=== PATIENT | female | born 1975 | race Caucasian/White ===

== ENCOUNTER 2024-01-11 22:32 | Outpatient (REF) | payer OTHER, SELFPAY ==
[2024-01-19 15:11] LABS: Age Gdln ACOG Testing Note (.); HPV Aptima Negative (Negative); IGP, Aptima HPV, rfx 16/18,45 Note (.)
== END 2024-01-11 22:33 | disposition home or self-care (01) ==
LOC: LAB 22:32
PROVIDERS: Visit Provider Obstetrics & Gynecology
DX: Z01.419 Encounter for gynecological examination (general) (routine) without abnormal findings (principal)
CPT/HCPCS: 88175

== ENCOUNTER 2024-03-15 15:44 | Outpatient (OUT) | payer OTHER, SELFPAY ==
--- NOTE | 2024-03-15 15:46 | MM_ITS ---
Patient Name: HALINA CHIN MR#: [id number] : 1975 Exam Date: 03/15/2024 Ordering Doctor: DR Jerry Montalvo . RADIOLOGY REPORT PROCEDURE: MM TOMOSYNTHESIS SCREENING BI COMPARISON: [facility]M DIAGNOSTIC 3D BENITO CAD, 05/03/2021. [facility]M BENITO SCRN W CAD DIG, 08/04/2018. [facility] MAMM BENITO SCRN W CAD DIG, 05/14/2017. INDICATIONS: screening for malignant neoplasm of breast Calculator Name NCI Breast Cancer Risk Assessment Tool 5 Year Breast Cancer Risk 0.60% Lifetime Breast Cancer Risk 5.80% Personal Breast Cancer No Personal Ovarian Cancer No Treatments None Family Cancers None LOCATION: [facility] BREAST COMPOSITION: The breasts are heterogeneously dense,which may obscure small masses. FINDINGS: DIAGNOSTIC CATEGORY 1--NEGATIVE. RIGHT BREAST: No significant suspicious finding. No significant change has occurred. LEFT BREAST: No significant suspicious finding. No significant change has occurred. RECOMMENDATIONS: ROUTINE MAMMOGRAM AND CLINICAL EVALUATION IN 12 MONTHS. PLEASE NOTE: A NORMAL MAMMOGRAM DOES NOT EXCLUDE THE POSSIBILITY OF BREAST CANCER. A CLINICALLY SUSPICIOUS PALPABLE LUMP SHOULD BE BIOPSIED. Dictated by: Minesh Myers M.D. on 03/15/2024 at 16:52 Approved by: Minesh Myers M.D. on 03/15/2024 at 16:54
== END 2024-03-15 15:45 | disposition home or self-care (01) ==
LOC: MAMMO 15:44
PROVIDERS: Visit Provider Obstetrics & Gynecology
DX: Z12.31 Encounter for screening mammogram for malignant neoplasm of breast (principal)
CPT/HCPCS: 77063; 77067

== ENCOUNTER 2024-05-15 15:15 | Emergency (ER) | payer OTHER, SELFPAY ==
[2024-05-15 15:23] VITALS: BP 118/72; PULSE 61; TEMP 36.6; O2SAT 100; BMI 26.0
--- OUTSIDE RECORDS SUMMARY | 2024-05-15 15:25 | XMS_ITS | CCD ---
Author Organization [facility] ion Partnership [facility] Care Team Providers Care Rug Frame Mounter Name Role Phone JASON, JCARLOS Unavailable Unavailable JCARLOS GOMEZ Unavailable Unavailable DIEGO REYNOLDS Unavailable Unavailable Aron Roque Unavailable Unavailable JASON, JCARLOS Unavailable Unavailable JASON, JCARLOS Unavailable Unavailable FURLONG, DIEGO Unavailable Unavailable LIZ, DIEGO Unavailable Unavailable JERO FAJARDO Attending Unavailable MELO ., JERO Consulting Unavailable JERO FAJARDO Admitting Unavailable Diego Reynolds MD Primary Care Provider YU MONTALVO Attending Unavailable Diego Reynolds DO Primary Care Provider DIEGO REYNOLDS Attending Unavailable DIEGO REYNOLDS Referring Unavailable DIEGO REYNOLDS Primary Care Unavailable DIEGO REYNOLDS Referring Unavailable DIEGO REYNOLDS Primary Care Unavailable Allergies Allergy Classification Reported Allergen(s) Allergy Type Date of Onset Reaction(s) Facility (1 source) No Known Medication Allergies; Translations: [No Known Medication Allergies] Propensity to adverse reactions to drug (disorder) [facility] Repository Medications Current Medications Medication Drug Class(es) Dates Sig (Normalized) Sig (Original) biotin 5 mg oral tablet (1 source) Start: 05-28-2022 take 1 tablet by mouth in the morning biotin 5 mg tablet Take 1 tablet by mouth in the morning. 100 tablet 05/28/2022 Active calcium carbonate 1250 mg / cholecalciferol 200 unt oral tablet (1 source) Vitamin D Start: 05-28-2022 take 1 tablet by mouth once in the morning calcium carbonate-vitamin D3 (OSCAL 500 + D) 500 mg(1,250mg) -200 units per tablet Take 1 tablet by mouth in the morning and 1 tablet in the evening. Take with meals. 100 tablet 05/28/2022 Active famotidine 20 mg oral tablet (4 sources) Histamine-2 Receptor Antagonist Start: 02-20-2023 End: 01-11-2024 take 1 tablet by mouth in the morning, then take 1 tablet by mouth at bedtime famotidine (PEPCID) 20 mg tablet Take 1 tablet (20 mg total) by mouth in the morning and 1 tablet (20 mg total) before bedtime. 20 tablet 02/20/2023 Active levonorgestrel 0.056492 mg/hr intrauterine system (5 sources) Progestin, Progestin-containi ng Intrauterine Device levonorgestreL (MIRENA) 21 mcg/24hr (up to 8 yrs) 52 mg IUD as directed Intrauterine Active Levonorgestrel ( Mirena, 52 MG,) 20 MCG/DAY intrauterine device as directed Intrauterine Active multivitamin capsule (1 source) Start: 05-28-2022 take 1 capsule by mouth in the morning multivitamin capsule Take 1 capsule by mouth in the morning. 100 capsule 05/28/2022 Active Problems Active Problems Problem Classification Problem Date Documented Date Episodic/Chronic Immunizations and screening for infectious disease (1 source) Encounter for screening for human papillomavirus (HPV); Translations: [ENC SCREENING HUMAN PAPILLOMAVIRUS] Onset: 07-03-2022 Episodic Menopausal disorders (3 sources) Perimenopausal state; Translations: [Menopausal and female climacteric states] Onset: 05-10-2024 05-10-2024 Chronic Mood disorders (2 sources) Recurrent major depressive episodes, mild ; Translations: [Major depressive disorder, recurrent, mild] Onset: 05-28-2022 05-10-2024 Chronic Other and unspecified benign neoplasm (1 source) Benign fibromatous neoplasm of skin; Translations: [Other benign neoplasm of skin, unspecified] 05-10-2024 Episodic Other nutritional; endocrine; and metabolic disorders (1 source) Overweight; Translations: [Overweight] 05-10-2024 Episodic Other screening for suspected conditions (not mental disorders or infectious disease) (8 sources) Encounter for screening for malignant neoplasm of cervix; Translations: [Patient encounter status] Onset: 06-30-2022 Episodic Unclassified (1 source) Annual Exam Onset: 05-10-2024 Past or Other Problems Problem Classification Problem Date Documented Da te Episodic/Chronic Mood disorders (1 source) Mood disorders Onset: 05-10-2024 05-10-2024 Other non-traumatic joint disorders (1 source) Pain in right knee; Translations: [Pain in joint, lower leg] Onset: 05-28-2022 05-28-2022 Episodic Results Test Name Value Interpretation Reference Range Facility E2 [Mass/Vol]on 05-10-2024 ESTRADIOL 125.4 pg/mL Normal [facility] Comment on above: Result Comment: NON- FEMALES Mid follicular: 25-115 pg/mL Ovulatory Peak: 32.1-517 pg/mL Mid Luteal: 36.5-246 pg/mL Post-Menopausal Females: <15.0-25.1 pg/mL (Not on hormone therapy) The Access Sensitive Estradiol assay results are not intended to be used to measure the effectiveness of exogeneous Estradiol supplementation, for example, when the patient is on hormone replacement therapy. The presence of estradiol drug analogues and their metabolites could have an impact on estradiol recovery when using this assay. Performed By: #### 1 0501-5, 2243-4, 13663-3 #### [facility] ([id number]) [address] [place] [address], [facility] [address] [place] [address] Follitropin Qnon 05-10-2024 FOLLICLE STIM HORMONE 8.7 mIU/mL Normal [facility] Comment on above: Result Comment: NORMAL FEMALE Luteal 1.8-5.1 mIU/mL Follicular 3.8-8.8 mIU/mL Mid Cycle 4.5-22.5 mIU/mL Post [place] 16.7-113.6 mIU/mL Performed By: #### 1 0501-5, 2243-4, 82428-8 #### [facility] ([id number]) [address], [address] [place] [address] Lutropin Qnon 05-10-2024 LUTEINIZING HORMONE 3.8 mIU/mL Normal [facility] Comment on above: Result Comment: NORMAL FEMALE Follicular 2.1-10.9 mIU/mL Mid Cycle 19.2-103 mIU/mL Luteal 1.2-12.9 mIU/mL Post [place]el[place] 10.9-58.6 mIU/mL Performed By: #### 1 0501-5, 2243-4, 90605-3 #### [facility] ([id number]) [address], [address] [place] [address] IGP,APTIMA HPV,AGE GDLNon AGE GDLN ACOG TESTING Note . [facility] Comment on above: TESTS RESULT FLAG UNITS REF RANGE LAB Clinician Provided Cytology Information Source.............Cervix;Endocervix No. of containers..01 ThinPrep Vial Age Algo ACOG Ymui... -65 01 FLAG LEGEND: L-Low Normal,H-High Normal,LL-Alert Low,HH-Alert High <-Panic Low,>-Panic High,A-Abnormal,AA-Critical Abnormal Performed at: 01 =[address] [address] Daniela Cifuentes MD, HPV APTIMA Negative Negative [facility] Comment on above: This nucleic acid amplification test det ects fourteen high- risk HPV types (16,18,31,33,35,39,45,51,52,56,58,59,66,68) without differentiation. Performed at: =[address] [id number] Credit Administration Officer: Daniela Cifuentes MD, Phone: [phone] Performed at: [address] [id number] Credit Administration Officer: Daniela Cifuentes MD, Phone: [phone] IGP, APTIMA HPV, RFX 16/18,45 Note . [facility] Comment on above: TESTS RESULT FLAG UNITS REF RANGE LAB DIAGNOSIS: 02 NEGATIVE FOR INTRAEPITHELIAL LESION OR MALIGNANCY. Specimen adequacy: 02 Satisfactory for evaluation. No endocervical component is identified. Performed by: Hay Phipps, Director Educational Radio ([facility]) . 02 Note: Note 02 The Pap smear is a screening test designed to aid in the detection of premalignant and malignant conditions of the uterine cervix. It is not a diagnostic procedure and should not be used as the sole means of detecting cervical cancer. Both false-positive and false-negative reports do occur. Test Methodology: Note 02 This liquid based ThinPrep(R) pap test was screened with the use of an image guided system. HPV Genotype Reflex Note 02 Criteria not met, HPV Genotype not performed. FLAG LEGEND: L-Low Normal,H-High Normal,LL-Alert Low,HH-Alert High <-Panic Low,>-Panic High,A-Abnormal,AA-Critical Abnormal Performed at: 02 WB [facility] [address] [address] Daniela Cifuentes MD, BRUSH-SPATULA CERVIX ENDOCERVIX [facility] PAP ACOG PANEL 2: 30 to 65on 07-08-2022 . . Normal [facility] Comment on above: Result Comment: Performed at: WB Performed By: #### 4 [id number] #### [facility] [address] [place] [address] Dr. Anabela Handley Age Gdln ACOG Testing 30-65 Normal [facility] Comment on above: Performed By: #### [id number] #### [facility] [address] [address] [address] Anabela Handley DIAGNOSIS: Comment Normal [facility] Comment on above: Result Comment: NEGATIVE FOR INTRAEPITHE LIAL LESION OR MALIGNANCY. PREDOMINANCE OF COCCOBACILLI CONSISTENT WITH SHIFT IN VAGINAL ZAN IS PRESENT. Performed at: WB Performed By: #### 4 [id number] #### [facility] [address] [address] [address] Anabela Handley HPV Aptima Positive Abnormal Negative [facility] Comment on above: Result Comment: This nucleic acid amplif ication test detects fourteen high-risk HPV types (16,18,31,33,35,39,45,51,52,56,58,59,66,68) without differentiation. Performed at: =G Performed By: #### 4 [id number] #### [facility] [address] [address] [address] Anabela Handley HPV Genotype 16 Negative Normal Negative [facility] Comment on above: Performed By: #### [id number] #### [facility] [address] [place] [address] Dr. Anabela Handley HPV Genotype 18,45 Negative Normal Negative [facility] Comment on above: Performed By: #### [id number] #### [facility] [address] [place] [address] Dr. Anabela Handley HPV Genotype Reflex Comment Normal [facility] Comment on above: Result Comment: Criteria met, see HPV Ge notype results. Performed at: WB Performed By: #### 4 [id number] #### [facility] [address] [place] [address] Dr. Anabela Handley Methodology: Comment Normal [facility] Comment on above: Result Comment: This liquid based ThinPr ep(R) pap test was screened with the use of an image guided system. Performed at: WB Performed By: #### 4 [id number] #### [facility] [address] [place] [address] Dr. Anabela Handley Note: Comment Normal [facility] Comment on above: Result Comment: The Pap smear is a scree milton test designed to aid in the detection of premalignant and malignant conditions of the uterine cervix. It is not a diagnostic procedure and should not be used as the sole means of detecting cervical cancer. Both false-positive and false-negative reports do occur. . Performed at: WB Performed By: #### 4 [id number] #### [facility] [address] [place] [address] Dr. Anabela Handley Performed by: Comment Normal [facility] Comment on above: Result Comment: Tye Dominguez Cytoyemi logist (ASCP) Performed at: WB Performed By: #### 4 [id number] #### [facility] [address] [place] [address] Dr. Anabela Handley Specimen adequacy: Comment Normal [facility] Comment on above: Result Comment: Satisfactory for evaluat ion. Endocervical and/or squamous metaplastic cells (endocervical component) are present. Performed at: WB Performed By: #### 4 [id number] #### [facility] [address] [place], [place] [address] Dr. Anabela Handley [facility] METABOLIC [facility] 04-09-2021 Albumin [Mass/Vol] 4.7 g/dL Normal 3.6-5.1 [facility] Comment on above: Performed By: #### 7600, 17430 #### [facility] of [address], [address] [place] [address] Tool Rental Technician: Mina Tillman MD Albumin/Globulin [Mass ratio] 1.9 {ratio} Normal 1.0-2.5 [facility] Comment on above: Performed By: #### 7600, 13275 #### [facility] of [place] [address] Tool Rental Technician: Mina Tillman MD ALP [Catalytic activity/Vol] 43 U/L Normal 31-125 [facility] Comment on above: Performed By: #### 7600, 02225 #### [facility] of [place] [address] Tool Rental Technician: Mina Tillman MD ALT [Catalytic activity/Vol] 14 U/L Normal 6-29 [facility] Comment on above: Performed By: #### 7600, 53858 #### [facility] of [place] [address] Tool Rental Technician: Mina Tillman MD AST [Catalytic activity/Vol] 16 U/L Normal 10-35 [facility] Comment on above: Performed By: #### 7600, 25116 #### [facility] of [place] [address] Tool Rental Technician: Mina Tillman MD Bilirubin [Mass/Vol] 0.7 mg/dL Normal 0.2-1.2 [facility] Comment on above: Performed By: #### 7600, 78403 #### [facility] of [place] [address] Tool Rental Technician: Mina Tillman MD BUN/CREATININE RATIO NOT APPLICABLE Normal 6-22 [facility] Comment on above: Performed By: #### 7600, 64100 #### [facility] of [place] [address] Tool Rental Technician: Mina Tillman MD Calcium [Mass/Vol] 9.7 mg/dL Normal 8.6-10.2 [facility] Comment on above: Performed By: #### 7600, 88344 #### [facility] of [place] [address] Tool Rental Technician: Mina Tillman MD Chloride [Moles/Vol] 104 mmol/L Normal 98-110 [facility] Comment on above: Performed By: #### 7600, 73537 #### [facility] of [place] [address] Tool Rental Technician: Mina Tillman MD CO2 [Moles/Vol] 26 mmol/L Normal 20-32 [facility] Comment on above: Performed By: #### 7600, 11181 #### [facility] of [place] [address] Tool Rental Technician: Mina Tillman MD Creatinine [Mass/Vol] 0.72 mg/dL Normal 0.50-1.10 [facility] Comment on above: Performed By: #### 7600, 75520 #### [facility] of [place] [address] Tool Rental Technician: Mina Tillman MD eGFR NON-AFR. BAHAMIAN 101 mL/min/1.73m2 Normal > OR = 60 [facility] Comment on above: Performed By: #### 7600, 97498 #### [facility] of [place] [address] Tool Rental Technician: Mina Tillman MD GFR/1.73 sq M.predicted among blacks MDRD (S/P/Bld) [Vol rate/Area] 117 mL/min/{1.73_m2} Normal > OR = 60 [facility] Comment on above: Performed By: #### 7600, 72524 #### [facility] of [place] [address] Tool Rental Technician: Mina Tillman MD Globulin (S) [Mass/Vol] 2.5 g/dL Normal 1.9-3.7 [facility] Comment on above: Performed By: #### 7600, 25931 #### [facility] [place] [address] Tool Rental Technician: Mina Tillman MD Glucose [Mass/Vol] 88 mg/dL Normal 65-99 [facility] Comment on above: Result Comment: Fasting reference interval Performed By: #### 7 600, 11188 #### [facility] [place] [address] Tool Rental Technician: Mina Tillman MD Potassium [Moles/Vol] 3.9 mmol/L Normal 3.5-5.3 [facility] Comment on above: Performed By: #### 7600, 66027 #### [facility] [place] [address] Tool Rental Technician: Mina Tillman MD Protein [Mass/Vol] 7.2 g/dL Normal 6.1-8.1 [facility] Comment on above: Performed By: #### 7600, 59314 #### [facility] [place] [address] Tool Rental Technician: Mina Tillman MD Sodium [Moles/Vol] 140 mmol/L Normal 135-146 [facility] Comment on above: Performed By: #### 7600, 73347 #### [facility] [place] [address] Tool Rental Technician: Mina Tillman MD Urea nitrogen [Mass/Vol] 12 mg/dL Normal 7-25 [facility] Comment on above: Performed By: #### 7600, 85488 #### [facility] [place] [address] Tool Rental Technician: Mina Tillman MD LIPID PANEL, [facility] Cholesterol [Mass/Vol] 141 mg/dL Normal <200 [facility] Comment on above: Order Comment: FASTING:YES FASTING: YES Performed By: #### 7 600, 56856 #### [facility] [address], [address] [place] [address] Tool Rental Technician: Mina Tillman MD Cholesterol in HDL [Mass/Vol] 52 mg/dL Normal > OR = 50 [facility] Comment on above: Order Comment: FASTING:YES FASTING: YES Performed By: #### 7 600, 32622 #### [facility] [address], [address] [place] [address] Tool Rental Technician: Mina Tillman MD Cholesterol in LDL [Mass/Vol] 75 mg/dL Normal [facility] Comment on above: Order Comment: FASTING:YES FASTING: YES Result Comment: Refe rence range: <100 Desirable range <100 mg/dL for primary prevention; <70 mg/dL for patients with CHD or diabetic patients with > or = 2 CHD risk factors. LDL-C is now calculated using the Kristen calculation, which is a validated novel method providing better accuracy than the Friedewald equation in the estimation of LDL-C. Jorge BENJAMIN et al. JOSÉ LUIS. 2013;310(19): 2393-9632 (http://education.[employer].StackAdapt/faq/LLK655) Performed By: #### 7 600, 18393 #### [facility] [address], [address] [place] [address] Tool Rental Technician: Mina Tillman MD Cholesterol.tota l/Cholesterol in HDL [Mass ratio] 2.7 {ratio} Normal <5.0 [facility] Comment on above: Order Comment: FASTING:YES FASTING: YES Performed By: #### 7 600, 96601 #### [facility] [address], [address] [place] [address] Tool Rental Technician: Mina Tillman MD NON HDL CHOLESTEROL 89 mg/dL (calc) Normal <130 [facility] Comment on above: Order Comment: FASTING:YES FASTING: YES Result Comment: For patients with diabetes plus 1 major ASCVD risk factor, treating to a non-HDL-C goal of <100 mg/dL (LDL-C of <70 mg/dL) is considered a therapeutic option. Performed By: #### 7 600, 11433 #### [facility] of [address], [address] [address] Tool Rental Technician: Mina Tillman MD Triglyceride [Mass/Vol] 56 mg/dL Normal <150 [facility] Comment on above: Order Comment: FASTING:YES FASTING: YES Performed By: #### 7 600, 37658 #### [facility] [address], [address] [place] [address] Tool Rental Technician: Mina Tillman MD CBC (INCLUDES DIFF/PLT)on WHITE BLOOD CELL COUNT Normal [facility] Comment on above: Result Comment: TEST NOT PERFORMED Specimen received clotted. Performed By: #### 6 399 #### [facility] [address], [address] [place] [address] Tool Rental Technician: Mina Tillman MD Intraoperative Noteon 2017 Intraoperative Note [id number]#[facility] 12-25-2016 Coding Summary CODING DATE: 017 [facility] STATUS: Home PAYOR: Commercial Insurance APC DESCRIPTION 5414 Level 4 Gynecologic Procedures ADMIT DX: REASON FOR VISIT DX: R87.619 Unspecified abnormal cytological findings in specimens from cervix uteri FINAL DX: PRINCIPAL: N87.1 Moderate cervical dysplasia SECONDARY: N72 Inflammatory disease of cervix uteri PYMT PROC APC STAT DESCRIPTION DOCTOR NAME DATE 75510 5414 J1 Conization of cervix, 12/09/2016 with or without fulguration, with or without dilation and curettage, with or without repair; cold knife or laser NOTE: The code number assigned matches the documented diagnosis and / or procedure in the patient's chart. However, the narrative phrase printed from the coding software may appear abbreviated, or result in slightly different terminology. Coded By: Patrica Covington Date Saved: 12/25/2016 01:[address] [facility] - Other Lab Resultson Lab - Other Lab Results [id number]#1.00OT[facility] History and Physicalon 12-22 History and Physical [id number]#[address] [place] [address] Operative Report - Surgeon/P justino 12-22-2016 Operative Report - Surgeon/Physicia n [id number]#1.[facility] Pathology Sendout Teston Pathology Send Out. See Report [facility] Comment on above: Order Comment: cervical cone biopsy with suture at 12 o' clock position Performed By: #### 2 [id number] ####[facility] (DEFAULT)[address] [place] [address] Provider Orderson 12-22-2016 Provider Orders [id number]#[address] [place] [address] Consent Formson 12-10-2016 Consent Forms [id number]#[address] [place] [address] Medication Managementon Medication Management [id number]#[address] [place] [address] Anesthesia Noteon 12-09-2016 Anesthesia Note Patient: JOSIAS JACKSON : 41 years Sex: FEMALE : [birth year]Associated Diagnoses: NoneAuthor: Aron Roque MDPostoperative InformationPost Operative Note: Post Anesthesia Care Unit.Anesthetic utilized: Monitored anesthesia care.Health StatusAllergies:Allergic Reactions (All)No Known Medication AllergiesPhysical ExaminationVS/MeasurementsVit al Signs (last 24 hrs) Last ChartedHeart Rate Peripheral L48 bpm (DEC 09 12:10)Resp Rate L 11 br/min (DEC 09 12:10)SBP 92 mmHg (DEC 09 12:10)DBP L 57 mmHg (DEC 09 12:10)SpO2 100 % (DEC 09:)Review / ManagementCondition: Stable.AssessmentAnesthetic outcomeNo anesthetic complications noted.Adequate pain relief.No Complaint of nausea and vomiting.PlanTransfer/ Discharge: Patient can be discharged from PACU when criteria met.Condition good.[Electronically Signed on: 12/09/2016 12:15 EDT] Aron Roque MD[Verified on: 12/09/2016 12:15 EDT] Aron Roque MD [facility] Anesthesia Note Patient: JOSIAS JACKSON : 41 years Sex: FEMALE : [birth year]Associated Diagnoses: NoneAuthor: Aron Roque MDPreoperative InformationAnesthesia history: Patient history negative Family history: No prior anesthesia problems.Review of SystemsConstitutional: Negative.Respiratory: No shortness of breath.Cardiovascular: No chest pain.Health StatusAllergies:Allergic Reactions (All)No Known Medication AllergiesCurrent medications:Home Medications (1) ActiveNexplanon 68 mg subcutaneous implantProblem list (past medical history):All ProblemsNo Chronic Problems / Cerner NKPHistoriesFamily History:No family history items have been selected or recorded.Procedure history:Varicose veins ([id number]). ([id number]).Social History Alcohol Assessment Beer, 1-2 times per week Tobacco Assessment Never (less than 100 in lifetime) Tobacco Use:..Social & Psychosocial CcrnqbRnlatpw54/19/2017 Type: Beer Frequency: 1-2 times per wonrOxkgtpd94/19/2017 Smoking tobacco use: Never (less than 100 in l.Physical ExaminationVS/MeasurementsVit al Signs (last 24 hrs) Last ChartedHeart Rate Peripheral 71 bpm (DEC 09 08:52)Resp Rate 18 br/min (DEC 09 08:52)SBP 131 mmHg (DEC 09 08:52)DBP 77 mmHg (DEC 09 08:52)SpO2 100 % (DEC 09 08:52)Pain assessment: Self-reports no pain.General: Alert and oriented, No acute distress.Airway: Mallampati classification: I (soft palate, fauces, uvula, pillars visible). Mouth: Adequate opening, Teeth ( Within normal limits ).Respiratory: Lungs are clear to auscultation.Cardiovascular: Normal rate, Regular rhythm.Review / ManagementLaboratory ResultsPlanAmerican Society of Anesthesiologists#(ASA) physical status classification: Class I.Anesthetic Preoperative PlanAnesthesia: Monitored anesthesia care. Anesthetic plan, risks, benefits, and alternatives discussed with the patient and/or family. Patient verbalized understanding. Informed consent was given. Consent was signed by the patient. None present at interview. Communication: face to face with patient 10 minutes.[Electronically Signed on: 12/09/2016 10:58 EDT] Aron Roque MD[Verified on: 12/09/2016 10:58 EDT] Aron Roque MD Normal [facility] Inpatient Clinical Summaryon 12-09-2016 Inpatient Clinical Summary [facility] SURGERYClinical Discharge SummaryPERSON INFORMATIONName HALINA JACKSON Age 41 Years 75Sex FEMALE Language Malian PCP FURLONG, DENNISMarital Status [facility] Service Ambulatory SurgeryN [id number] Acct# Arrival 12/09/16 08:14:15Visit Reason SURGERY - COLD KNIFE CONE BX Acuity LOS 032 22:31Address:[address] [facility] [address]Gkyqbib:PROVIDER INFORMATIONVITALS INFORMATIONVital Sign Triage LatestTemp OralTemp Temporal 37.4 DegC 37.4 DegCTemp IntravascularTemp AxillaryTemp Pzfhct32 Sat 100 % 99 %Respiratory Rate 16 br/min 16 br/minPeripheral Pulse Rate 79 bpm 52 bpmApical Heart RateBlood Pressure 116 mmHg / 72 mmHg 110 mmHg / 76 mmHgComment:MEDICAL INFORMATIONAllergy Info:No Known Medication AllergiesPrescriptions Given:Prescription Displayacetaminophen-codeine (Tylenol with Codeine #3 oral tablet) 1 tab(s), PO, q4hr, PRN: for pain, # 10 tab(s), 0 Refill(s)ibuprofen (ibuprofen 600 mg oral tablet) 1 tab(s) ( 600 mg ), PO, q6hr, PRN: as needed for pain, # 60 tab(s), 0 Refill(s)Home Meds Displayetonogestrel (Nexplanon 68 mg subcutaneous implant) 0 Refill(s)Medication List:Fill New Prescriptions:acetaminophen-c odeine (Tylenol with Codeine #3 oral tablet) 1 tab(s) Oral Every 4 hours as needed for for painibuprofen (ibuprofen 600 mg oral tablet) 600 mg Oral Every 6 hours as needed for as needed for painContinue These Medications:etonogestrel (Nexplanon 68 mg subcutaneous implant)Comment:Lab and Radiology ResultsLaboratory or Other Results This Visit (last charted value for your 12/09/2016 visit) Chemistry 12/09/2016 8:43 AM U Preg: NegativeDIET & ACTIVITYPatient Activity Level:Patient Diet:Patient Activity Restrictions:DISCHARGE INFORMATIONDischarge Disposition:Discharge Location:DEPART REASON INCOMPLETE INFORMATIONPATIENT EDUCATION INFORMATIONInstructions:Coniz ation of the Cervix, Care AfterFollow up:With: Address: When:DIEGO REYNOLDS [address] [place] [address] Business (1)DIAGNOSIS1:High grade squamous intraepithelial lesion on cytologic smear of cervix (hgsil)Comment:PHYS DOC NOTES Normal [facility] Inpatient Patient Summaryon 12-09-2016 Inpatient Patient Summary [place] [id number] patient Discharge InstructionsName: HALINA JACKSON ADOB: 75 Address: [address] [place] [address] Care Provider:Name: DIEGO REYNOLDSPhone: Discharge Diagnosis: 1:High grade squamous 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 Do not drive a car.? Do not operate machinery such as power tools, lawn mowers, drills, sewing machines, or stoves? Avoid alcoholic beverages and drugs for allergies, nerves, or sleep? Do not make important personal or business decisions or sign any legal documentsOhiohealth Shelby Hospital would like to thank you for allowing us to assist you with your healthcare needs. The following includes patient education materials and information regarding your injury/illness.HALINA JACKSON has been given the following list of follow-up instructions, prescriptions, and patient education materials:Follow-up InstructionsWith: Address: When:DIEGO REYNOLDS [facility] [address] [place] [phone] Business (1)MedicationsDuring the course of your visit, your medication list was updated with the most current information. The details of those changes are reflected below:New MedicationsPrinted Prescriptionsacetaminophen-co deine (Tylenol with Codeine #3 oral tablet) 1 tab(s) Oral Every 4 hours as needed for pain. Refills: 0.ibuprofen (ibuprofen 600 mg oral tablet) 1 tab(s) Oral Every 6 hours as needed as needed for pain. Refills: 0.Medications to Continue That Have Not ChangedOther Medicationsetonogestrel (Nexplanon 68 mg subcutaneous implant)It is important to always keep an active list of medications available so that you can share with other providers and manage your medications appropriately. As an additional courtesy, we are also providing you with your final active medications list that you can keep with you.acetaminophen-codeine (Tylenol with Codeine #3 oral tablet) 1 tab(s) Oral Every 4 hours as needed for pain. Refills: 0.etonogestrel (Nexplanon 68 mg subcutaneous implant)ibuprofen (ibuprofen 600 mg oral tablet) 1 tab(s) Oral Every 6 hours as needed as needed for pain. Refills: 0.Take only the medications listed above. Contact your doctor prior to taking any medications not on this list.Diet & ActivityPatient Activity Level:Patient Diet:Patient Activity Restrictions:Comment:Patient education materials, if any, will display belowConization of the Cervix, Care AfterRefer to this sheet in the next few weeks. These instructions provide you with information on caring for yourself after your procedure. Your health care provider may also give you more specific instructions. Your treatment has been planned according to current medical practices but problems sometimes occur. Call your health care provider if you have any problems or questions after your procedure.WHAT TO EXPECT AFTER THE PROCEDUREAfter your procedure, it is typical to have the following sensations:? If you had a general anesthetic, you may be groggy for 2?3 hours after the procedure.? You may have cramps (similar to menstrual cramps) for about 1 week. ?? You may have a bloody discharge or light to moderate bleeding for 1?2 weeks. ?The bleeding should not be heavy (for example, it should not soak 1 pad in less than 1 hour).? You may have a black vaginal discharge that looks similar to coffee grounds. This is from the paste that was applied to the cervix to control bleeding. This is normal.Recovery may take up to 3 weeks.HOME CARE INSTRUCTIONS? Arrange for someone to drive you home after the procedure.? Only take medicines as directed by your health care provider. Do not take aspirin. It can cause bleeding. ?? Take showers for the first week. Do not take baths, swim, or use hot tubs until your health care provider says it is okay. ?? Do not douche, use tampons, or have sexual intercourse until your health care provider says it is okay. ?? Avoid strenuous activities, exercises, and heavy lifting for at least 7?14 days.? You may resume your normal diet unless your health care provider advises you differently. ? ?? If you are constipated, you may:? Take a mild laxative as directed by your health care provider. ?? Add fruit and bran to your diet. ?? Make sure to drink enough fluids to keep your urine clear or pale yellow.? Keep follow-up appointments with your health care provider.SEEK MEDICAL CARE IF:? You develop a rash. ?? You are dizzy or lightheaded. ?? You feel nauseous. ?? You develop a bad smelling vaginal discharge.SEEK IMMEDIATE MEDICAL CARE IF:? You have blood clots or bleeding that is heavier than a normal menstrual period (for example, soaking a pad in less than 1 hour) or you develop bright red bleeding. ?? You have a fever over 101?F (38.3?C) or persistent symptoms for more than 2?3 days. ?? You have a fever over 101?F (38.3?C) and your symptoms suddenly get worse.? You have increasing cramps. ?? You faint. ?? You have pain when urinating.? You have bloody urine. ?? You start vomiting. ?? Your pain is not relieved with your medicine. ?? Your have severe or worsening pain.MAKE SURE YOU:? Understand these instructions.? Will watch your condition.? Will get help right away if you are not doing well or get worse.This information is not intended to replace advice given to you by your health care provider. Make sure you discuss any questions you have with your health care provider.Document Released: 02/23/2006 Document Revised: 02/28/2014 Document Reviewed: 08/19/2013[employer] Patient Education ?2016 [address]. Viruses or BacteriaWhat?s got you sick?Antibiotics only treat bacterial infections. Viral illnesses cannot be treated with antibiotics. When an antibiotic is not prescribed, ask your healthcare professional for tips on how to relieve symptoms and feel better. Usual CauseIllnessVirusesBacteria Antibiotic NeededCold/Runny Nose NOBronchitis/Chest Cold (in otherwise healthy children and adults) NOWhooping Cough YesFlu NOStrep Throat YesSore Throat (except strep) NOFluid in the middle ear (otitis media with effusion) NOUrinary Tract Infection YesAntibiotics Aren?t Always the Answerwww.cdc.gov/getsmart GET SMART Know When Antibiotics [place] Department of Health and Human ServicesCenters for Disease Control and Prevention November [address] [facility] MAGR Intraoperative Recordon 12-09-2016 MAGR Intraoperative Record MAGR Intra-Op Record Summary Primary Physician: Jcarlos Gomez DO Finalized Date/Time: 12/09/16 12:11:39 Pt. Name: HALINA JACKSON/Sex: 1975 FEMALE Med Rec #: [id number] Physician: Jcarlos Gomez DO Financial #: [id number] Pt. Type: D Room/Bed: / Admit/Disch: 12/09/16 08:14:15 - Institution: Case Times MAGR Entry 1 Patient In Room Time 12/09/16 11:15:00 Out Room Time 12/09/16 11:51:00 Anesthesia Start Time 12/09/16 11:05:00 Stop Time 12/09/16 11:54:00 Surgery Start Time 12/09/16 11:25:00 Stop Time 12/09/16 11:46:00 Last Modified By: Radha Beebe RN 12/09/16 12:00:59 Case Attendance MAGR Entry 1 Entry 2 Entry 3 Case Attendee Jcarlos Gomez DO, Paris Ghosh MD Role Performed Surgeon - Primary Anesthesiologist of [place] Record Time In 12/09/16 11:15:00 12/09/16 11:15:00 12/09/16 11:15:00 Time Out 12/09/16 11:51:00 12/09/16 11:51:00 12/09/16 11:51:00 Procedure Cold Cone Biopsy Cold Cone Biopsy Cold Cone Biopsy Last Modified By: Radha Beebe RN, Lora RN Fresch, Lora RN 12/09/16 12:01:02 12/09/16 12:01:02 12/09/16 12:01:02 Entry 4 Entry 5 Entry 6 Case Attendee Wilbur Conrad CST, Stacy M CST Fresch, Lora RN Role Performed Scrub Personnel Scrub Personnel Rail Assembler Time In 12/09/16 11:15:00 12/09/16 11:15:00 12/09/16 11:15:00 Time Out 12/09/16 11:51:00 12/09/16 11:51:00 12/09/16 11:51:00 Procedure Cold Cone Biopsy Cold Cone Biopsy Cold Cone Biopsy Last Modified By: Radha Beebe RN, Lora RN Fresch, Lora RN 12/09/16 12:01:02 12/09/16 12:01:02 12/09/16 12:01:02 Entry 7 Case Attendee Elsa Peña RN Role Performed Rail Assembler Time In 12/09/16 11:15:00 Time Out 12/09/16 11:51:00 Procedure Cold Cone Biopsy Last Modified By: Radha Beebe RN 12/09/16 12:01:02 Surgical Procedures MAGR Pre-Care Text: A.20 Verifies operative procedure, surgical site, and laterality Im.150 Develops individualized plan of care Entry 1 Procedure Cold Cone Biopsy Primary Procedure Yes Primary Surgeon Jcarlos Gomez DO Surgeon Comment COLD KNIFE CONE BX Start 12/09/16 11:25:00 Stop 12/09/16 11:46:00 Anesthesia Type MAC Surgical Service Gynecology Wound Class Clean-Contaminated Last Modified By: Radha Beebe RN 12/09/16 12:01:05 Post-Care Text: O.730 The patient's care is consistent with the individualized perioperative plan of care General Case Data MAGR Pre-Care Text: A.350.1 Classifies surgical wound Entry 1 Case Information OR MAGR OR 02 Case Level Level 3 Wound Class Clean-Contaminated Specialty Gynecology ASA Class 1 Diagnosis Preop Diagnosis ABNORMAL PAP Postop Same As Preop Yes Postop Diagnosis ABNORMAL PAP Last Modified By: Radha Beebe RN 12/09/16 11:34:19 Post-Care Text: O.760 Patient receives consistent and comparable care regardless of the setting Time Out MAGR Entry 1 Time out date/time 12/09/16 11:24:00 All team members Yes have introduced themselves by name and role Surgeon, Yes Surgeon reviews Yes anesthesia, nurse critical or confirm patient, unexpected steps, site, procedure operative duration, anticipated blood loss Anesthesia team Yes Nursing team Yes reviews any reviews sterility patient-specific (including concerns indicator results) and equipment issues/concerns Last Modified By: Radha Beebe RN 12/09/16 11:34:38 Patient Positioning MAGR Pre-Care Text: A.280 Identifies baseline musculoskeletal status Im.40 Positions the patient Im.80 Applies safety devices Entry 1 Procedure Cold Cone Biopsy Body Position High Lithotomy Left Arm Position Extended on padded arm Right Arm Position Extended on padded arm board board Left Leg Position Secured in Stirrup Right Leg Position Secured in Stirrup Feet Uncrossed? Yes Press Points Checked Yes Positioning Device Safety Strap, Pillow, Outcome Met (O.80) Yes Arm Boards, Stirrups Last Modified By: Radha Beebe RN 12/09/16 11:40:56 Post-Care Text: E.290 Evaluates musculoskeletal status O.80 Patient is free from signs and symptoms of injury related to positioning Skin Prep MAGR Pre-Care Text: A.30 Verifies allergies Im.270 Performs skin preparation Im.270.1 Implements protective measures to prevent skin and tissue injury due to chemical sources Entry 1 Skin Prep Syntegrity Prep Agents (Im.270) Povidone-Iodine Prep By Radha Beebe RN Prep Area (Im.270) Vagina and perineum Skin Prep Agent Dry Yes Without Pooling Hair Removal Syntegrity Hair Removal Methods No hair removal performed Outcome Met (O.100) Yes Last Modified By: Radha Beebe RN 12/09/16 11:41:30 Post-Care Text: E.10 Evaluates for signs and symptoms of physical injury to skin and tissue O.100 Patient is free from signs and symptoms of chemical injury Counts Verification MAGR Pre-Care Text: A.20 Verifies operative procedure, surgical site, and laterality A.20.2 Assesses the risk for unintended retained foreign body Im.20 Performs required counts Entry 1 Procedure Cold Cone Biopsy Counts Verification Initial Counts Items included in Sponges, Sharps Initial Counts Manual the Initial Count Method Initial Counts Radha Beebe RN, Initial Count Time 12/09/16 11:20:00 Performed By Wilbur Conrad VIDEO CONTROL OPERATOR Counts Verification Final Counts Items Included in Sponges, Sharps Final Count Method Manual Final Count Final Count Status Correct Final Counts Radha Beebe RN, Bear, Performed By Dagmar Marks VIDEO CONTROL OPERATOR Final Count Time 12/09/16 11:44:00 Surgeon notified of Yes final counts status Outcome Met (O.20) Yes Last Modified By: Radha Beebe RN 12/09/16 11:45:13 Post-Care Text: E.50 Evaluates results of the surgical count O.20 Patient is free from unintended retained foreign objects Cautery MAGR Pre-Care Text: A.240 Assesses baseline skin condition A.40 Verifies presence of prosthetics or corrective devices Im.50 Implements protective measures to prevent injury due to electrical sources Entry 1 ESU Type Electrosurgical Unit Identification [id number] Number ESU Settings Syntegrity Cut Setting 25 Coag Setting 25 Grounding Pad Details Grounding Pad Yes Verified By Radha Beebe RN Needed? Grounding Pad Site Table Grounding Pad Outcome Met (O.10) Yes Last Modified By: Radha Beebe RN 12/09/16 12:01:58 Post-Care Text: E.10 Evaluates for signs and symptoms of physical injury to skin and tissue O.10 Patient is free from signs and symptoms of injury related to thermal sources Cultures and Specimens MAGR Pre-Care Text: A.350 Assesses susceptibility for infection A.10 Confirms patient identity Im.320 Manages culture specimen collection Im.330 Manages specimen handling and disposition Entry 1 Cultures Ordered No Specimens Ordered Yes Outcome Met (O.40) Yes Last Modified By: Radha Beebe RN 12/09/16 12:02:04 Post-Care Text: E.40 Evaluates correct processes have been performed for specimen handling and disposition O.40 Patient's specimen(s) is managed in the appropriate manner Medication Administration MAGR Pre-Care Text: A.210 Identifies physiological status Im.220 Administers prescribed medications Entry 1 Entry 2 Entry 3 Time Administered 12/09/16 11:28:00 12/09/16 11:28:00 12/09/16 11:40:00 Medication LIDOCAINE 1% WITH EPI ACETIC ACID 5% ASTRIN GREEN CHAIN MARKER GEL Route of Admin SubQ TOP TOP Dose 10 mL 16 gm Volume 30 mL 15 mL 16 gm By Jcarlos Gomez DO, DO, Kurt D Harrison DO, Kurt D Outcome Met (O.130) Yes Yes Yes Last Modified By: Radha Beebe RN, Lora RN Fresch, Lora RN 12/09/16 12:05:03 12/09/16 12:05:03 12/09/16 12:05:03 Post-Care Text: E.20 Evaluates response to medications O.130 Patient receives appropriately administered medication(s) Dressing/Packing MAGR Pre-Care Text: A.350 Assesses susceptibility for infection Im.290 Administer care to wound sites Entry 1 Skin Prep Agent Yes Site Perineum Removed Prior to Dressing? Wound closure Other Dressing Item Details Miscellaneous Sanitary Pad (Im.290) Outcome Met Yes Last Modified By: Radha Beebe RN 12/09/16 12:05:48 Post-Care Text: E.200 Evaluates progress of wound healing O.200 Patient's wound perfusion is consistent with or improved from baseline levels Departure from OR MAGR Entry 1 Present on Depart Oxygen Via Stretcher Post-op Destination PACU Skin DFO Condition Dry Description Condition Warm Description Report Given To Joanne Ruby RN Airway Maintenance Patient Status Stable Oxygen in Use? Yes Airway Device Oral airway, Simple mask Flow Rate 6 L/min Last Modified By: Radha Beebe RN 12/09/16 12:06:25 Case Comments Finalized By: Radha Beebe RN Document Signatures Signed By: Radha Beebe RN 12/09/16 12:11 Normal [facility] MAGR PACU Recordon 7 MAGR PACU Record MAGR PACU Record [place] Primary Physician: Jcarlos Gomez DO Finalized Date/Time: 12/09/16 12:32:35 Pt. Name: HALINA JACKSON D.O.B./Sex: 1975 FEMALE Med Rec #: [id number] Physician: Jcarlos Gomez DO Financial #: [id number] Pt. Type: D Room/Bed: / Admit/Disch: 12/09/16 08:14:15 - Institution: PACU Case Times MAGR Entry 1 In PACU I 12/09/16 11:50:00 Ready for PACU I 12/09/16 12:25:00 Discharge Discharge from PACU 12/09/16 12:25:00 I Last Modified By: Joanne Ruby RN 12/09/16 12:32:32 General Comments: Awake, aware, vital signs stable on room air. Respiration deep and regular. ECG shows RSR. Dinah pad dry. Rates surgical discomfort at 3. Taking ice chips po. Discharge to nursing unit per Dr Roque using discharge criteria. Finalized By: Joanne Ruby RN Document Signatures Signed By: Joanne Ruby RN 12/09/16 12:[address] [facility] MAGR Postoperative Recordon 12-09-2016 MAGR Postoperative Record MAGR Phase II Record Summary Primary Physician: Jcarlos Gomez DO Finalized Date/Time: 12/09/16 14:05:04 Pt. Name: HALINA JACKSON D.O.B./Sex: 1975 FEMALE Med Rec #: [id number] Physician: Jcarlos Gomez DO Financial #: [id number] Pt. Type: D Room/Bed: / Admit/Disch: 12/09/16 08:14:15 - Institution: Phase II Case Times MAGR Pre-Care Text: Patient is free from s/s of injury. Patient remains free from compromised physical state related to surgery or anesthesia. Patient comfort maintained. Patient/family verbalize understanding of discharge instructions. Entry 1 In PACU II 12/09/16 12:25:00 Ready for PACU II 12/09/16 13:38:00 Discharge Discharge from PACU 12/09/16 13:47:00 II Last Modified By: Chasity Hayward 12/09/16 13:47:26 Post-Care Text: The patient remains free from s/s of injury. Patient's vital signs stable, circulation maintained, return to preop mental and physical status, opsite/dressing intact, minimal or absent nausea and vomiting, tolerates po intake. Patient verbalizes adequate pain control. Patient/family express understanding of discharge instructions. General Comments: ARRIVES TO PACU II AWAKE,ALERT, VSS AND STATES PAIN IS 2 UTERINE CRAMPING. ABD IS SOFT AND FLAT.DINAH PAD IS DRY AND INTACT. PT TAKES WATER AND FOOD WITHOUT DIFF. 1300 MEDICATED FOR ABD CRAMPING ON SCALE 2/10 PO. PT DOES COUGH AND DEEP BREATHE NON PROD AND DORSIPLANTAR FLEX AND EXTENDS WITH REMINDER. DISCHARGE INSTRUCTIONS REVIEWED WITH PT AND FRIEND WHO DENY QUESTIONS. UP TO BR WITH MIN ASSIST AND SABA WELL. DISCHARGED PER WC TO PRIVATE CAR, INSTRUCTIONS AND RX IN HAND, DRIVEN PER FRIEND. Finalized By: Chasity Hayward Document Signatures Signed By: Chasity Hayward 12/09/16 13:47 Chasity Hayward 12/09/16 14:05 Unfinalized History Date/Time Username Reason for Unfinalizing Freetext Reason for Unfinalizing 12/09/16 14:03 [facility] Documentation Normal [facility] MAGR Preoperative Recordon 1 [facility] Preoperative Record MAGR Pre-Op Record Summary Primary Physician: Jcarlos Gomez DO Finalized Date/Time: 12/09/16 11:04:33 Pt. Name: HALINA JACKSON/Sex: 1975 FEMALE Med Rec #: [id number] Physician: Jcarlos Gomez DO Financial #: [id number] Pt. Type: D Room/Bed: / Admit/Disch: 12/09/16 08:14:15 - Institution: Pre-Op Case Times MAGR Pre-Care Text: Patient will be optimally prepared for surgery. Patient is free from s/s of injury. Provide information to patient/family related to plan of care. Verify patient allergies. Confirm identity and verify consent before the operative or invasive procedure. Entry 1 Patient Arrival Time 12/09/16 08:51:00 Preop Departure 12/09/16 11:04:00 Last Modified By: Scott Jackson RN 12/09/16 11:04:31 Post-Care Text: Patient is prepared mentally and physically and is ready for surgery. The patient remains free from s/s of injury. Patient/family express understanding of plan of care and participate in decisions affecting his or her perioperrative plan of care. Allergies documented appropriately. Patient identifiers and consent correct. General Comments: arrives ambulatory to [facility], denies recent cp, sob, new illnesses, pacemaker, defibrillator or sleep apnea Finalized By: Scott Jackson RN Document Signatures Signed By: Scott Jackson RN 12/09/16 11:[address] [facility] Operative Report - Surgeon/P justino 12-09-2016 Operative Report - Surgeon/Physicia n DATE OF PROCEDURE: 12/09/2016PREOPERATIVE DIAGNOSIS: Abnormal colposcopy (high grade squamousintraepithelial lesion).POSTOPERATIVE DIAGNOSIS: Abnormal colposcopy (high grade squamousintraepithelial lesion), pending pathology.PROCEDURE: Cold knife cervical cone biopsy, paracervical block.SURGEON: Jcarlos Gomez DOANESTHESIA: Aron Roque M.D.; GeneralASSISTANT: SARA RutledgeACOMPLICATIONS: None.ESTIMATED BLOOD LOSS: Less than 25 ccFINDINGS: Cervix is long closed in the middle, acetowhite epithelium drawingon a postop note.PROCEDURE: The patient was taken to the operating room and placed in thesupine position. After adequate general anesthesia, she was placed into thedorsolithotomy position and was then prepped and draped in the normal sterilefashion.Next, a weighted speculum was placed into the patient's vagina and theanterior aspect of the cervix was grasped with a single-tooth tenaculum.Then Xylocaine 1% with epinephrine 10 cc was injected for a paracervicalblock. Good hemostasis was noted. After the paracervical block, 2-0 Vicrylsutures were placed at 3 o'clock and 9 o'clock to provide us with properhemostasis. Then 5% acetic acid solution was placed into the vagina aroundthe cervix to demonstrate the acetowhite epithelium. Next the scalpel wasused to make a cone biopsy in a circular fashion with a 2-3 mm border aroundthe acetowhite epithelium. The specimen of the cone biopsy was tagged at the12 o'clock position and was given to the nurse to be sent to pathology.Next, the remaining portion of the cervix was then electrocauterized with theBovie, and then 0 Vicryl was placed circumferentially around the cervicalstump remaining with interlocking 0 sutures and two [id number] suturesat 3 and 9 o'clock. Then Monsel's solution was placed into the remainingportion of the cervix. Excellent hemostasis was noted. All instruments werethen removed from the vagina. Sponge, lap, needle and instrument counts werecorrect x2. The patient was taken to the PACU awake and in stable condition.MARGARET Hebert #: [id number]: 12/09/2016T: 12/09/2016[Electronically Signed on: 12/10/2016 20:04 EDT] Jcarlos Gomez DO, D.O.[Verified on: 12/10/2016 20:04 EDT] Jcarlos Gomez DO, D.O.[Transcribed on: 12/09/2016 16:29 EDT]GDU [facility] Test Urine 1on U Preg Negative [facility] Comment on above: Performed By: #### [id number] ####[facility] (DEFAULT)[address] [place] [id number] U Preg Internal Control Pass [facility] Comment on above: Performed By: #### [id number] ####[facility] (DEFAULT)[address] [place] [id number] Progress Note - Nurseon aPTT Pre-op call done, in structed pt to arrive @ 0830 on 12-09-16, NPO after midnight-verbalized understanding.[Electronically Signed on: 12/08/2016 12:07 EDT] Frances Drake RN[Verified on: 12/08/2016 12:07 EDT] Frances Drake RN [facility] Coding Summaryon 12-04-2016 Coding Summary CODING DATE: 017 [facility] STATUS: Home PAYOR: Commercial Insurance ADMIT DX: REASON FOR VISIT DX: Z01.812 Encounter for preprocedural laboratory examination FINAL DX: PRINCIPAL: Z01.812 Encounter for preprocedural laboratory examination SECONDARY: R87.613 High grade squamous intraepithelial lesion on cytologic smear of cervix (HGSIL) PROCEDURES DOCTOR NAME DATE NOTE: The code number assigned matches the documented diagnosis and / or procedure in the patient's chart. However, the narrative phrase printed from the coding software may appear abbreviated, or result in slightly different terminology. Coded By: Laure Butler Date Saved: 12/04/2016 11:[address] [facility] Provider Orderson 12-04-2016 Provider Orders [id number] [facility] .Auto Diff 1on 11-25-2016 Auto Baso % 0.3 % Normal 0.2-2.0 [facility] Comment on above: Performed By: #### [id number], [id number] ### #[facility] (DEFAULT)[address] [place] [address] 51650 Auto [place] % 9 % Normal 1-12 [facility] Comment on above: Performed By: #### [id number], [id number] ### #[facility] (DEFAULT)[address] [place] [address] 42488 Auto Neut % 67 % Normal 44-88 [facility] Comment on above: Performed By: #### [id number], [id number] ### #[facility] (DEFAULT)[address] [place] [address] 10194 Baso Abs# 0.0 x10 Normal 0.0-0.2 [facility] Comment on above: Performed By: #### [id number], [id number] ### #[facility] (DEFAULT)[address] [place] [address] 37216 Eos Abs# 0.0 x10 Normal 0.0-0.4 [facility] Comment on above: Performed By: #### [id number], [id number] ### #[facility] (DEFAULT)[address] [place] [address] Eosinophils/100 leukocytes 0.4 % Low 0.9-4.0 [facility] Comment on above: Performed By: #### [id number], [id number] ### #[facility] (DEFAULT)[address] [place] [address] Lymphocytes 2.3 x10 Normal 1.3-2.9 [facility] Comment on above: Performed By: #### [id number], [id number] ### #[facility] (DEFAULT)[address] [place] [address] Lymphocytes/100 leukocytes 23 % Normal 14-48 [facility] Comment on above: Performed By: #### [id number], [id number] ### #[facility] (DEFAULT)[address] [place] [address] 67[address] [place] Abs# 0.9 x10 High 0.0-0.8 [facility] Comment on above: Performed By: #### [id number], [id number] ### #[facility] (DEFAULT)[address] [place] [address] 79893 Neut Abs# 6.8 x10 Normal 1.5-9.2 [facility] Comment on above: Performed By: #### [id number], [id number] ### #[facility] (DEFAULT)[address] [place] [address] CBC w/ Auto Diffon 7 Erythrocyte distribution width Auto Ratio (RBC) 11.9 % Normal 11.5-15.0 [facility] Comment on above: Performed By: #### [id number], [id number] ### #[facility] (DEFAULT)[address] [place] [address] Erythrocytes (RBC) 4.28 x10 Normal 3.70-5.30 [facility] Comment on above: Performed By: #### [id number], [id number] ### #[facility] (DEFAULT)[address] [place] [address] Hematocrit (HCT) 39.7 % Normal 33.7-40.4 [facility] Comment on above: Performed By: #### [id number], [id number] ### #[facility] (DEFAULT)[address] [place] [address] Hemoglobin mass conc (Bld) 13.8 g/dL Normal 11.3-15.9 [facility] Comment on above: Performed By: #### [id number], [id number] ### #[facility] (DEFAULT)[address] [place] [address] Man Diff? Auto Normal [facility] Comment on above: Performed By: #### [id number], [id number] ### #[facility] (DEFAULT)[address] [place] [address] MCH 32 pg Normal 24-34 [facility] Comment on above: Performed By: #### [id number], [id number] ### #[facility] (DEFAULT)[address] [place] [address] MCHC mass conc (RBC) 35 g/dL Normal 26-37 [facility] Comment on above: Performed By: #### [id number], [id number] ### #[facility] (DEFAULT)[address] [place] [address] MCV 93 fL Normal 81-100 [facility] Comment on above: Performed By: #### [id number], [id number] ### #[facility] (DEFAULT)[address] [place] [address] Platelet mean volume (PMV) 10.2 fL Normal 6.3-10.2 [facility] Comment on above: Performed By: #### [id number], [id number] ### #[facility] (DEFAULT)[address] [place] [address] 45289 Platelets 235 x10 Normal 138-427 [facility] Comment on above: Performed By: #### [id number], [id number] ### #[facility] (DEFAULT)[address] [place] [address] 11448 WBC (Leukocytes) 10.0 x10 Invalid Interpretation Code [facility] Comment on above: Performed By: #### [id number], [id number] ### #[facility] (DEFAULT)[address] [place] [address]808 Vital Signs Date Time Vital Sign Value Performing Clinician Facility 05-10-2024 15:23-0500 Body height 167.6 cm [employer] Work Phone: [facility] 05-10-2024 15:23-0500 Body mass index (BMI) [Ratio] 25.89 kg/m2 Ombu DO Work Phone: [facility] 05-10-2024 15:23-0500 Body temperature 98.2 [degF] Ombu DO Work Phone: [facility] 05-10-2024 15:23-0500 Body weight 72.76 kg Ombu DO Work Phone: [facility] 05-10-2024 15:23-0500 Diastolic blood pressure 58 mm[Hg] Ombu DO Work Phone: [facility] 05-10-2024 15:23-0500 Heart rate 71 /min Ombu DO Work Phone: [facility] 05-10-2024 15:23-0500 Respiratory rate 18 /min Ombu DO Work Phone: [facility] 05-10-2024 15:23-0500 SaO2% (BldA) [Mass fraction] 98 % Diego Reynolds DO Work Phone: [place] 05-10-2024 15:23-0500 Systolic blood pressure 98 mm[Hg] Diego Reynolds DO Work Phone: [place] 01-11-2024 14:27-0500 Body height 167.6 cm Yujyoti Meht[facility] [employer] Work Phone: [facility] 01-11-2024 14:27-0500 Body mass index (BMI) [Ratio] 25.5 kg/m2 Yu Katia [employer] Work Phone: [facility] 01-11-2024 14:27-0500 Body weight 71.67 kg Yu Katia [employer] Work Phone: [facility] 01-11-2024 14:27-0500 Diastolic blood pressure 70 mm[Hg] Yu Katia [employer] Work Phone: [facility] 01-11-2024 14:27-0500 Systolic blood pressure 120 mm[Hg] Yu Katia DO Work Phone: [facility] Encounters Encounter Date Encounter Type Care Provider Facility Start: 05-10-2024 End: 05-10-2024 ambulatory [facility] Start: 05-10-2024 End: 05-10-2024 Patient encounter status Diego Reynolds DO Work Phone: [place] Work Phone: Start: 05-10-2024 End: 05-10-2024 Periodic preventive med est patient 40-64yrs Diego Reynolds DO Work Phone: [facility] Comment on above: Well adult exam (Ramandeep rhoades Dx); Perimenopausal; Screen for colon cancer; Mild recurrent major depression (CMS-HCC); Overweight; Benign fibromatous neoplasm of skin Start: 05-10-2024 End: 05-10-2024 ambulatory [facility] Start: 05-10-2024 Encounter for genera l adult medical examination without abnormal findings DIEGO Mccurdy [facility] Start: 01-11-2024 End: 01-11-2024 Bamboo flowsheet Yu Katia DO Work Phone: [facility] Start: 01-11-2024 End: 01-19-2024 Bamboo flowsheet Yu Katia DO Work Phone: [facility] Start: 01-11-2024 End: 01-19-2024 Clinisync Result Encounter Yu Katia DO Work Phone: [facility] Unsolicited Start: 01-11-2024 End: 01-11-2024 ambulatory YU KATIA Not Available Start: 01-11-2024 End: 01-11-2024 Patient encounter procedure Yu Katia DO Work Phone: [facility] Start: 01-11-2024 End: 01-11-2024 Periodic preventive med est patient 40-64yrs Yu Katia DO Work Phone: [facility] Comment on above: Well woman exam with routine gynecological exam; Breast cancer screening by mammogram Start: 06-30-2022 End: 06-30-2022 ambulatory JERO ALEJO . Facility: Start: 12-09-2016 End: 12-09-2016 Ambulatory [facility] Facility:[facility] Start: 11-26-2016 End: 11-26-2016 Ambulatory [facility] Facility:[facility] Procedures Date Procedure Procedure Detail Performing Clinician Start: 05-10-2024 Adult depression scr eening assessment Diego Reynolds DO Work Phone: Start: 01-11-2024 IGP,APTIMA HPV,AGE GDLN Yu Katia DO Work Phone: Start: 01-11-2024 Microscopic observat ion [Identifier] in Cervix by Cyto stain Yu Katia DO Work Phone: Start: 06-30-2022 Microscopic observat ion [Identifier] in Cervix by Cyto stain Yu Katia DO Work Phone: Start: 06-20-2022 Mammography Yu live DO Work Phone: Plan of Treatment Date Care Activity Detail Author Start: 01-10-2029 Screening for malignant neoplasm of cervix [facility] Start: 07-01-2027 Screening for malignant neoplasm of cervix [facility] Start: 01-10-2027 Screening for malignant neoplasm of cervix Pap Smear [place] Start: 05-10-2025 Adult BMI Screening Adult BMI Screen ing [facility] Start: 05-10-2025 Depression Screening Depression Scre ening [place] Start: 05-10-2025 Tobacco Screening Tobacco Screening [place] Start: 01-17-2025 End: 01-17-2025 Patient encounter procedure 01/17/2025 2:00 PM EST Office Visit [facility] [address] [place] [id number] Yu Montalvo, DO [address] [place] [address] [facility] Start: 07-08-2024 Screening for malignant neoplasm of colon [facility] Start: 01-11-2024 End: 03-12-2025 MG Breast - bilateral Screening Bilateral screening mammogram Imaging Routine Breast cancer screening by mammogram Expected: 01/11/2024 (Approximate), Expires: 03/12/2025 [facility] Work Phone: Comment on above: Expected: 01/11/2024 (Approximate), Expires: 03/12/2025 Start: 11-08-2023 Influenza vaccination Influenza Vacc ine (#1) [facility] Start: 06-21-2023 Screening for malignant neoplasm of breast Mammogram [facility] Start: 12-02-2022 DTaP,Tdap and Td Vaccines (2 - Td or Tdap) DTaP,Tdap and Td Vaccines (2 - Td or Tdap) [place] Start: 10-03-2020 Screening for malignant neoplasm of colon Colon Cancer Screening 3 Year Cologuard [place] Start: 10-03-1993 Adult BMI Follow Up Plan Adult BMI Follow Up Plan [place] Start: 1975 Screening for malignant neoplasm of colon [facility] Cologuard [facility] Cologuard [facility] Lab Routine Screen for colon cancer Ordered: 05/10/2024 [place] Comment on above: Ordered: 05/10/2024 End: 05-10-2025 Estradiol Estradiol Lab Routine Perimenopausal 1 Occurrences starting 05/10/2024 until 05/10/2025 [facility] Work Phone: Comment on above: 1 Occurrences starti ng 05/10/2024 until 05/10/2025 End: 05-10-2025 FSH FSH Lab Routine Perimenopausal 1 Occurrences starting 05/10/2024 until 05/10/2025 [place] Comment on above: 1 Occurrences starti ng 05/10/2024 until 05/10/2025 End: 05-10-2025 Luteinizing hormone Luteinizing hormone Lab Routine Perimenopausal 1 Occurrences starting 05/10/2024 until 05/10/2025 [place] Comment on above: 1 Occurrences starti ng 05/10/2024 until 05/10/2025 THIN PREP TIS PAP AN D HR HPV DNA THIN PREP TIS PAP AND HR HPV DNA Pathology and Cytology Routine Well woman exam with routine gynecological exam Ordered: 01/11/2024 [facility] Comment on above: Ordered: 01/11/2024 Immunizations Immunization Date Immunization Notes Care Provider Travis jackson 01-15-2024 Hepatitis B vaccine (recombinant), CpG adjuvanted Diego Furlong DO Work Phone: [place] 12-18-2023 Hepatitis B vaccine (recombinant), CpG adjuvanted Diego Furlong DO Work Phone: [place] 12-18-2023 influenza, seasonal, injectable, preservative free Diego Furlong DO Work Phone: [place] 12-18-2023 influenza virus vaccine, unspecified formulation Yu Katia DO Work Phone: [facility] 01-28-2023 influenza, injectabl e, quadrivalent, preservative free Diego Furlong DO Work Phone: [place] 12-06-2021 Influenza, injectabl e, [place] Canine Kidney, preservative free, quadrivalent Diego Furlong DO Work Phone: [place] 12-12-2020 influenza, seasonal, injectable Diego Furlong DO Work Phone: [place] 01-04-2020 influenza, injectabl e, quadrivalent, contains preservative Diego Furlong DO Work Phone: [place] 12-07-2019 influenza, injectabl e, quadrivalent, preservative free Diego Furlong DO Work Phone: [place] 12-22-2018 influenza, injectabl e, quadrivalent, contains preservative Diego Furlong DO Work Phone: [place] 12-29-2017 influenza, injectabl e, quadrivalent, contains preservative Diego Furlong DO Work Phone: [place] 12-02-2012 tetanus toxoid, redu gennaro diphtheria toxoid, and acellular pertussis vaccine, adsorbed Diego Furlong DO Work Phone: [place] Payers Date Payer Category Payer Private Health Insurance [facility] [id number] 2022 Managed Care Other (unspecified) [employer] [id number] 2016 Unknown [id number] 1975 Unknown [id number] 1975 Unknown [id number] 1975 Unknown [id number] 1975 Unknown [id number] 1959 Unknown [id number] Social History Date Type Detail Facility Tobacco smoking stat [facility] Tobacco smoking consumption unknown [facility] Start: 1975 Sex assigned at Not on file [facility] Start: 05-28-2022 End: 05-10-2024 Gender identity Not on file [facility] Start: 05-28-2022 Tobacco smoking status [facility] Never smoked tobacco [facility] Start: 05-28-2022 Tobacco use and exposure Smokeless tobacco non-user [facility] Start: 05-10-2024 Alcoholic beverage intake Current drinker of alcohol (finding) [facility] Start: 05-28-2022 End: 05-10-2024 Alcoholic beverage intake [facility] Has the [employer], or [employer] threatened to shut off services in your home in past 12Mo No [facility] Do you belong to any clubs or organizations such as anabaptist groups, unions, fraternal or athletic groups, or school groups? Yes [facility] Are you now , , , , never or living with a partner? [place] How often to you hav e a drink containing alcohol? 2-4 times a month [place] How many standard dr inks containing alcohol do you have on a typical day? 1 or 2 [place] How often do you hav e 6 or more drinks on 1 occasion? Never [place] How hard is it for y ou to pay for the very basics like food, housing, medical care, and heating Not very hard [place] Adolescent depressio n screening assessment 5 [place] Do you feel stress - tense, restless, nervous, or anxious, or unable to sleep at night because your mind is troubled all the time - these days [OSQ] To some extent [facility] Start: 1975 Sex assigned at Female [facility] Start: 10-12-2014 Sex Female (finding) [facility] Start: 08-05-2018 Gender identity Identifies as female gender (finding) [facility] Start: 08-05-2018 Sexual orientation Heterosexual (finding) [facility] History of Present illness Narrative 05-10-2024 Diego Velazquezjosé luis, - 05/10/2024 3:30 PM EST Note Date & Type Note Facility 05-10-2024 History of Present illness Narrative Subjective Patient ID: Halina Jackson is a 48 y.o. female. Halina Jackson is a 48 y.o. female presenting today for annual wellness visit. She is interested in pursuing hormone replacement therapy or other medication which may help her symptoms. She reports her periods have decreased to once every few months with only mild spotting beginning a few months ago. She does have some associated cramping and discomfort with intercourse. She report increased irritability for the past few months. She denies vaginal discomfort, vaginal dryness, and hot flashes at this time. She she does have a history of superficial thrombophlebitis 10 years ago that was treated with removal of the vein in the left leg. She denies hx of HTN, smoking, migraine with aura. She doesn't have hot flashes or vaginal dryness. She does see [facility] and last saw him in January but these issues just started recently. She had biometric labs done through work last month. Annual Exam Associated symptoms include congestion, fatigue (past few weeks) and a sore throat. Pertinent negatives include no chest pain, fever, nausea or vomiting. The following portions of the patient's history were reviewed and updated as appropriate: allergies, current medications, past family history, past medical history, past social history, past surgical history, problem list, and medication reconciliation was completed including current medication and post discharge medication. Review of Systems Constitutional: Positive for fatigue (past few weeks). Negative for appetite change and fever. HENT: Positive for congestion and sore throat. Negative for postnasal drip and sinus pain. Eyes: Negative for photophobia and visual disturbance. Respiratory: Negative for shortness of breath and wheezing. Cardiovascular: Negative for chest pain, palpitations and leg swelling. Gastrointestinal: Negative for abdominal distention, blood in stool, constipation, diarrhea, nausea and vomiting. Endocrine: Negative for polydipsia and polyuria. Genitourinary: Positive for menstrual problem (Decreased frequency of periods). Negative for dyspareunia, hematuria and vaginal pain. Skin: Small growth on right lower leg, asymptomatic Neurological: Negative for dizziness and light-headedness. Psychiatric/Behavioral: Positive for agitation and decreased concentration. Negative for confusion, dysphoric mood, self-injury, sleep disturbance and suicidal ideas. Objective Physical Exam Constitutional: General: She is not in acute distress. Appearance: Normal appearance. She is not ill-appearing, toxic-appearing or diaphoretic. HENT: Head: Normocephalic and atraumatic. Right Ear: Tympanic membrane, ear canal and external ear normal. There is no impacted cerumen. Left Ear: Tympanic membrane, ear canal and external ear normal. There is no impacted cerumen. Nose: Nose normal. No congestion or rhinorrhea. Mouth/Throat: Mouth: Mucous membranes are moist. Pharynx: No oropharyngeal exudate or posterior oropharyngeal erythema. Eyes: General: No scleral icterus. Right eye: No discharge. Left eye: No discharge. Extraocular Movements: Extraocular movements intact. Conjunctiva/sclera: Conjunctivae normal. Pupils: Pupils are equal, round, and reactive to light. Neck: Vascular: No carotid bruit. Cardiovascular: Rate and Rhythm: Normal rate and regular rhythm. Pulses: Normal pulses. Heart sounds: Normal heart sounds. No murmur heard. No friction rub. No gallop. Pulmonary: Effort: Pulmonary effort is normal. No respiratory distress. Breath sounds: Normal breath sounds. No stridor. No wheezing, rhonchi or rales. Chest: Chest wall: No tenderness. Abdominal: General: Abdomen is flat. Bowel sounds are normal. There is no distension. Palpations: Abdomen is soft. There is no mass. Tenderness: There is no abdominal tenderness. There is no guarding. Hernia: No hernia is present. Musculoskeletal: Cervical back: Normal range of motion and neck supple. No rigidity or tenderness. Lymphadenopathy: Cervical: No cervical adenopathy. Skin: General: Skin is warm and dry. Coloration: Skin is not jaundiced or pale. Findings: No bruising, erythema, lesion (small brown papule on right lower leg mid shaft anteriorly, smooth borders, symmetric, no color variation) or rash. Neurological: General: No focal deficit present. Mental Status: She is alert and oriented to person, place, and time. Psychiatric: Mood and Affect: Mood normal. Behavior: Behavior normal. Thought Content: Thought content normal. Judgment: Judgment normal. Assessment/Plan Halina was seen today for annual exam. Diagnoses and all orders for this visit: Well adult exam Health maintenance discussed. She sees [facility] for female issues. Perimenopausal - Estradiol; Future - FSH; Future - Luteinizing hormone; Future Check labs to see if she is in menopause. Discussed various medications to treat menopausal symptoms. Since it is mostly just irritability I would recommend an SSRI or SNRI. Various medications reviewed. She will look up the medications and let me know if she would like something. She can forward biometric labs to our office for our review and records. Screen for colon cancer - Cologuard [facility] Recommends colon cancer screen with cologuard or colonoscopy. Risks and benefits discussed. She would like the cologuard. She would pursue further evaluation and treatment. Mild recurrent major depression (CMS-HCC) She defers medication. Overweight She is just slightly overweight with clothes on. Diet, exercise and wt loss discussed. Alex Wolff MS3 05/10/24 3:27 PM documented in this encounter [facility] History of Present illness Narrative 01-11-2024 Radha Patel - 01/11/2024 1:40 PM EST Note Date & Type Note Facility 01-11-2024 History of Presen t illness Narrative Reason for Appointment: Patient ID: Halina Jackson is a 48 y.o. female who presents for Well Women Visit Patient presents today for Annual Exam. MEDICATIONS Current Outpatient Medications Medication Instructions Levonorgestrel (Mirena, 52 MG,) 20 MCG/DAY intrauterine device as directed Intrauterine ALLERGIES No Known Allergies PROBLEMS Active Ambulatory Problems Diagnosis Date Noted No Active Ambulatory Problems Resolved Ambulatory Problems Diagnosis Date Noted No Resolved Ambulatory Problems No Additional Past Medical History HISTORY PAST MEDICAL HISTORY SOCIAL HISTORY History reviewed. No pertinent past medical history. Social History Tobacco Use Smoking status: Not on file Smokeless tobacco: Not on file Substance Use Topics Alcohol use: Not on file Drug use: Not on file FAMILY HISTORY No family history on file. SURGICAL HISTORY History reviewed. No pertinent surgical history. REVIEW OF SYSTEMS Review of Systems: Review of Systems Constitutional: Negative. HENT: Negative. Eyes: Negative. Respiratory: Negative. Cardiovascular: Negative. Gastrointestinal: Negative. Genitourinary: Negative. Musculoskeletal: Negative. Skin: Negative. Neurological: Negative. All other systems reviewed and are negative. Hematological: Negative. Endocrine: Negative. Allergic/Immunologic: Negative. OBJECTIVE Objective: Physical Exam Constitutional: Appearance: Normal appearance. She is well-developed. Genitourinary: Vulva normal. Right Adnexa: not tender and no mass present. Left Adnexa: not tender and no mass present. No cervical discharge. Breasts: Breasts are soft. Right: Normal. Left: Normal. HENT: Head: Normocephalic. Nose: Nose normal. Mouth/Throat: Mouth: Mucous membranes are moist. Cardiovascular: Rate and Rhythm: Normal rate and regular rhythm. Pulmonary: Effort: Pulmonary effort is normal. Breath sounds: Normal breath sounds. Abdominal: General: Bowel sounds are normal. There is no distension. Palpations: Abdomen is soft. Tenderness: There is no abdominal tenderness. There is no guarding or rebound. Musculoskeletal: General: No swelling. Normal range of motion. Cervical back: Normal range of motion. Right lower leg: No edema. Left lower leg: No edema. Neurological: General: No focal deficit present. Mental Status: She is alert and oriented to person, place, and time. Skin: General: Skin is warm and dry. Psychiatric: Mood and Affect: Mood normal. Behavior: Behavior normal. Vitals and nursing note reviewed. Exam conducted with a graphic design teacher present. Vitals: Estimated body mass index is 25.5 kg/m as calculated from the following: Height as of this encounter: 5' 6 . Weight as of this encounter: 158 lb. BP: 120/70 No LMP recorded. Patient has had an implant. ASSESSMENT & PLAN ICD-10-CM 1. Well woman exam with routine gynecological exam Z01.419 THIN PREP TIS PAP AND HR HPV DNA 2. Breast cancer screening by mammogram Z12.31 Bilateral screening mammogram Bilateral screening mammogram Annual: Patient presents today for an annual exam. Patient states she is doing well and has no complaints. Pap was obtained without difficulty and patient given mammogram order to have scheduled/obtained. Orders Placed This Encounter Procedures Bilateral screening mammogram Follow Up: Patient is to return in one year for annual unless needed otherwise. Documented by Radha Patel on behalf of: Yu Montalvo DO documented in this encounter [facility] Evaluation note Note Date & Type Note Facility Evaluation note Diagnosis Well woman exam with routine gynecological exam Routine gynecological examination Breast cancer screening by mammogram documented in this encounter [facility] Evaluation note Note Date & Type Note Facility Evaluation note Diagnosis Well adult exam- Primary Routine general medical examination at a health care facility Perimenopausal Symptomatic menopausal or female climacteric states Screen for colon cancer Special screening for malignant neoplasms, colon Mild recurrent major depression (CMS-HCC) Major depressive disorder, recurrent episode, mild Overweight Benign fibromatous neoplasm of skin documented in this encounter [facility] Instructions Note Date & Type Note Facility Instructions Not on filedocumented in this en counter [facility] Summary Purpose Family History No Family History Records FoundNo Family History Records FoundNo Family History Records FoundNo Family History Records FoundNo Family History Records FoundNo Family History Records Found Advance Directives No Advanced Directives Records FoundNo Advanced Directives Records FoundNo Advanced Directives Records FoundNo Advanced Directives Records FoundNo Advanced Directives Records FoundNo Advanced Directives Records Found Additional Source Comments INFORMATION SOURCE (unrecogn ized section and content) DATE CREATED AUTHOR 09/01/2017 [facility] DATE CREATED AUTHOR AUTHOR'S ORGANIZ ATION 04/09/2021 [facility] DATE CREATED AUTHOR AUTHOR'S ORGANIZ ATION 07/09/2022 [facility] DATE CREATED AUTHOR AUTHOR'S ORGANIZ ATION 01/12/2024 [facility] DATE CREATED AUTHOR AUTHOR'S ORGANIZ ATION 05/12/2024 [facility] DATE CREATED AUTHOR AUTHOR'S ORGANIZ ATION 05/12/2024 [facility] Care Teams (unrecognized sec tion and content) 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 Specialty Start Date End Date Diego Reynolds MD [address], [place] [address] PCP - General Family Medicine 01/11/24 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 This clinical summary was aggregated from multiple sources. Caution should be exercised in using it in the provision of clinical care. This summary normalizes information from multiple sources, and as a consequence, information in this document may materially change the coding, format and clinical context of patient data. In addition, data may be omitted in some cases. CLINICAL DECISIONS SHOULD BE BASED ON THE PRIMARY CLINICAL RECORDS. [facility] [employer] [facility]. provides no warranty or guarantee of the accuracy or completeness of information in this document.
[2024-05-15 16:43] LABS: Basophils Absolute Auto 0.1 10^3/uL (0.0-0.1); Basophils Percent Auto 0.3 % (0.2-2.0); Eosinophils Absolute Auto 0.1 10^3/uL (0.0-0.7); Eosinophils Percent Auto 0.3 % (0.9-7.0); Hemoglobin 14.3 g/dL (12.0-16.0); Immature Granulocytes Abs Auto 0.08 10^3/uL (0.00-0.03); Immature Granulocytes Pct Auto 0.5 % (0.0-0.5); Lymphocytes Absolute Auto 1.6 10^3/uL (1.2-3.8); Lymphocytes Percent Auto 9.4 % (20.5-60.0); Mean Corpuscular Hemoglobin 31.8 pg (26.7-34.0); Mean Corpuscular Volume 93.3 fL (81.0-99.0); Mean Platelet Volume 10.3 fL (9.5-13.5); Monocytes Absolute Auto 0.9 10^3/uL (0.3-0.8); Monocytes Percent Auto 5.4 % (1.7-12.0); Neutrophils Absolute Auto 14.7 10^3/uL (1.4-6.5); Neutrophils Percent Auto 84.1 % (43.0-75.0); Platelet Count 294 10^3/uL (150-450); Red Cell Distribution Width 11.8 % (11.0-15.0); White Blood Count 17.4 10^3/uL (4.0-11.0)
[2024-05-15 16:54] LABS: HCG Qualitative NEGATIVE (NEGATIVE); Internal Control Within Normal Limits
[2024-05-15 17:03] LABS: Alanine Aminotransferase 22 U/L (14-59); Albumin Globulin Ratio 1.2; Albumin Level 4.1 g/dL (3.4-5.0); Alkaline Phosphatase 61 U/L (46-116); Amylase 53 U/L (25-115); Anion Gap 11.2; Aspartate Amino Transferase 25 U/L (15-37); BUN Creatinine Ratio 18.8; Bilirubin Direct 0.1 mg/dL (0.0-0.2); Bilirubin Total 0.3 mg/dL (0.2-1.0); Calcium 9.2 mg/dL (8.5-10.1); Carbon Dioxide 27.8 mmol/L (21.0-32.0); Chloride 103 mmol/L (98-107); Estimated GFR (African America >60 (>=60 mL/min/1.73m^2); Estimated GFR (Non-African Ame >60 (>=60 mL/min/1.73m^2); Globulin 3.3 g/dL; Glucose 118 mg/dL (74-106); Sodium 138 mmol/L (136-145); Total Protein 7.4 g/dL (6.4-8.2)
--- NOTE | 2024-05-15 17:24 | ED_ITS ---
HPI HPI - General Adult General Chief complaint: Abdominal Pain Stated complaint: ABDOMINAL PAIN Time Seen by Provider: 05/15/24 15:36 Source: patient and family Mode of arrival: Wheelchair Limitations: no limitations History of Present Illness HPI narrative: 48-year-old female presents to the emergency department for abdominal pain. It is primarily in the epigastric area and it started a few hours ago while she was cutting up some vegetables. She was not eating. She has had a history of gallbladder issues and about a year ago had similar symptoms and was diagnosed with gallstones. The pain has been continuous. No trauma or fever. Related Data Allergies Allergy/AdvReac Type Severity Reaction Status Date / Time No Known Drug Allergies Allergy Verified 05/15/24 15:23 Opioid HPI Opioid Management Most Recent Opioid Data: Last Pain Scale 7 05/15/24 17:40 05/15/24 Last MAY Pain Assessment 05/15/24 17:40 Review of Systems ROS Narrative A ten point review of systems is negative except as noted above. PFSH PFSH Social History Little interest or pleasure in doing things: not at all Feeling down, depressed, or hopeless: not at all Exam Narrative Exam Narrative: Nurses note and vital signs reviewed and patient is not hypoxic. General: The patient appears well and in no apparent distress. Patient is resting comfortably on cart. Skin: Warm, dry, no pallor noted. There is no rash noted. Head: Normocephalic, atraumatic Eye: Normal conjunctiva, no drainage Ears, Nose, Mouth, and Throat: oral mucosa is moist. Nares patent. Cardiovascular: Regular Rate and Rhythm Respiratory: Patient is in no distress, no accessory muscle use, lungs are clear to auscultation, no wheezing, rales or rhonchi Back: non-tender GI: Nondistended. Tenderness present in the epigastric area. No lower abdominal tenderness and no rebound guarding or masses. Musculoskeletal: The patient has no evidence of calf tenderness, no pitting edema, symmetrical pulses noted bilaterally Neurological: A&O, normal speech Psychiatric: Cooperative Constitutional Vital Signs, click to edit/add: Last Vital Signs Temp 98 F 05/15/24 15:23 Pulse 61 05/15/24 15:23 Resp 18 05/15/24 15:23 BP 118/72 05/15/24 15:23 Pulse Ox 100 05/15/24 15:23 O2 Del Method Room Air 05/15/24 15:23 Course Vital Signs Vital signs: Vital Signs Temperature 98 F 05/15/24 15:23 Pulse Rate 61 05/15/24 15:23 Respiratory Rate 18 05/15/24 15:23 Blood Pressure 118/72 05/15/24 15:23 Pulse Oximetry 100 05/15/24 15:23 Oxygen Delivery Method Room Air 05/15/24 15:23 Temperature 98 F 05/15/24 15:23 Pulse Rate 61 05/15/24 15:23 Respiratory Rate 18 05/15/24 15:23 Blood Pressure 118/72 05/15/24 15:23 Pulse Oximetry 100 05/15/24 15:23 Oxygen Delivery Method Room Air 05/15/24 15:23 Medical Decision Making MDM Narrative Medical decision making narrative: WBC is 17,000 and her other labs are negative. CT scan is ordered and pending and the patient is signed out to Dr. Maldonado at change of shift. Differential Diagnosis Differential Diagnosis: Acute cholecystitis, pancreatitis, hepatitis Lab Data Lab results reviewed: Yes I reviewed the patient's lab results Labs: Lab Results 05/15/24 Range/Units 16:37 WBC 17.4 H (4.0-11.0) 10^3/uL RBC 4.50 (4.20-5.40) 10^6/uL Hgb 14.3 (12.0-16.0) g/dL Hct 42.0 (36.0-48.0) % MCV 93.3 (81.0-99.0) fL MCH 31.8 (26.7-34.0) pg MCHC 34.0 (29.9-35.2) g/dL RDW 11.8 (11.0-15.0) % Plt Count 294 (150-450) 10^3/uL MPV 10.3 (9.5-13.5) fL Neut % (Auto) 84.1 H (43.0-75.0) % Lymph % (Auto) 9.4 L (20.5-60.0) % [place] % (Auto) 5.4 (1.7-12.0) % Eos % (Auto) 0.3 L (0.9-7.0) % Baso % (Auto) 0.3 (0.2-2.0) % Neut # (Auto) 14.7 H (1.4-6.5) 10^3/uL Lymph # (Auto) 1.6 (1.2-3.8) 10^3/uL [place] # (Auto) 0.9 H (0.3-0.8) 10^3/uL Eos # (Auto) 0.1 (0.0-0.7) 10^3/uL Baso # (Auto) 0.1 (0.0-0.1) 10^3/uL Abs Immat Gran (auto) 0.08 H (0.00-0.03) 10^3/uL Imm/Tot Granulo (auto) 0.5 (0.0-0.5) % Sodium 138 (136-145) mmol/L Potassium 4.0 (3.5-5.1) mmol/L Chloride 103 (98-107) mmol/L Carbon Dioxide 27.8 (21.0-32.0) mmol/L Anion Gap 11.2 BUN 16.0 (7.0-18.0) mg/dL Creatinine 0.85 (0.55-1.02) mg/dL Est GFR ( Amer) >60 (>=60 mL/min/1.73m^2) Est GFR (Non-Af Amer) >60 (>=60 mL/min/1.73m^2) BUN/Creatinine Ratio 18.8 Glucose 118 H (74-106) mg/dL Calcium 9.2 (8.5-10.1) mg/dL Total Bilirubin 0.3 (0.2-1.0) mg/dL Direct Bilirubin 0.1 (0.0-0.2) mg/dL AST 25 (15-37) U/L ALT 22 (14-59) U/L Alkaline Phosphatase 61 (46-116) U/L Total Protein 7.4 (6.4-8.2) g/dL Albumin 4.1 (3.4-5.0) g/dL Globulin 3.3 g/dL Albumin/Globulin Ratio 1.2 Amylase 53 (25-115) U/L Lipase 37.0 (16.0-77.0) U/L Serum HCG, Qual Negative (NEGATIVE) Discharge Plan Discharge Chief Complaint: Abdominal Pain Clinical Impression: Abdominal pain Patient Disposition: Still a Patient Print Language: Swiss Referrals: Physician,Non-Staff, MD [Primary Care Provider] - 1 week
[2024-05-15] MEDS: MORPHINE SULFATE 4 MG/ML VIAL IV (17:40)
[2024-05-15] MEDS: ONDANSETRON PF 4 MG/2 ML VIAL IV (17:40)
--- NOTE | 2024-05-15 19:45 | PC.NURSE ---
Pt states pain is tolerable and is almost nearly gone . Continue to await CT results.
== END 2024-05-15 20:25 | disposition home or self-care (01) ==
PROVIDERS: Emergency Provider Emergency Medicine
DX: K80.20 Calculus of gallbladder without cholecystitis without obstruction (principal); N83.202 Unspecified ovarian cyst, left side; R10.9 Unspecified abdominal pain
CPT/HCPCS: 36415; 74177; 80048; 80076; 82150; 83690; 84703; 85025; 96374; 96375; 99285; J2270; J2405; Q9967

== ENCOUNTER 2025-01-17 19:20 | Outpatient (REF) | payer OTHER, SELFPAY ==
--- OUTSIDE RECORDS SUMMARY | 2025-01-17 14:00 | XMS_ITS | Encounter Summary ---
Author Organization [facility] Address [address] [place] [address] Care Team Providers Care Temperature Inspector Name Role Phone Diego Reynolds MD Primary Care Provider [phone] Reason for Visit * ReasonCommentsGynecologic Exam Encounter Details DateTypeDepartmentCare Team (Latest Contact Info)Brihidowupq64/11/2025 2:00 PM ESTOffice Visit [facility] [address] [place] [phone] Jerry Montalvo DO [address] [place], [facility] Well woman exam with routine gynecological exam; Encounter for screening mammogram for malignant neoplasm of breast; Urinary incontinence, unspecified type Social History Tobacco UseTypesPacks/DayYears UsedDateSmoking Tobacco: Never Assessed CommentsNoSex and Gender InformationValueDate RecordedSex Assigned at BirthNot on fileLegal AfgNxgryj02/15/2023 11:47 PM EDTGender IdentityNot on fileSexual OrientationNot on filedocumented as of this encounter Last Filed Vital Signs Vital SignReadingTime TakenCommentsBlood Fzukgkip167/6401/17/2025 2:18 PM EST Pulse--Temperature--Respiratory Rate--Oxygen Saturation--Inhaled Oxygen Concentration--Geunpm81.9 kg (163 lb)01/17/2025 2:18 PM UMJIxjdmt217.1 cm (5' 5 )01/17/2025 2:18 PM ESTBody Mass Index27.12103/19/2024 2:18 PM ESTdocumented in this encounter Progress Notes * LAYLA Pedro - 01/17/2025 2:00 PM EST Reason for Appointment: Patient ID: Elisa Jackson is a 49 y.o. female who presents for Gynecologic Exam Patient presents today for Annual Exam. MEDICATIONS Current Outpatient Medications Medication Instructions Levonorgestrel (Mirena, 52 MG,) 20 MCG/DAY intrauterine device as directed Intrauterine Premarin 1 g, Vaginal, Daily, Insert 1/2 applicator at bedtime nightly for 2 weeks then twice a week thereafter ALLERGIES No Known Allergies PROBLEMS Active Ambulatory Problems Diagnosis Date Noted No Active Ambulatory Problems Resolved Ambulatory Problems Diagnosis Date Noted No Resolved Ambulatory Problems No Additional Past Medical History HISTORY PAST MEDICAL HISTORY SOCIAL HISTORY No past medical history on file. Social History Tobacco Use Smoking status: Not [...] appearance. She is well-developed. Genitourinary: Vulva normal. Cardiovascular: Rate and Rhythm: Normal rate and regular rhythm. Pulmonary: Effort: Pulmonary effort is normal. Breath sounds: Normal breath sounds. Abdominal: General: Bowel sounds are normal. There is no distension. Palpations: Abdomen is soft. Tenderness: There is no abdominal tenderness. There is no guarding or rebound. Musculoskeletal: General: No swelling. Normal range of motion. Right lower leg: No edema. Left lower leg: No edema. Neurological: Mental Status: She is alert and oriented to person, place, and time. Skin: General: Skin is warm and dry. Psychiatric: Mood and Affect: Mood normal. Behavior: Behavior normal. Vitals and nursing note reviewed. Exam conducted with a sales representative raw fibers present. Vitals: Estimated body mass index is 27.12 kg/m?? as calculated from the following: Height as of this encounter: 5' 5 . Weight as of this encounter: 163 lb. BP: 110/64 No LMP recorded (lmp unknown). (Menstrual status: IUD). ASSESSMENT & PLAN ICD-10-CM 1. Well woman exam with routine gynecological exam Z01.419 THIN PREP TIS PAP AND HR HPV DNA 2. Encounter for screening mammogram for malignant neoplasm of breast Z12.31 Bilateral screening mammogram Bilateral screening mammogram 3. Urinary incontinence, unspecified type R32 Estrogens Conjugated (Premarin) 0.625 MG/GM cream Orders Placed This Encounter Procedures Bilateral screening mammogram Annual Wellness Exam: Patient presents today for routine annual exam. Patient states she has complaints of urinary incontinence. Patients vitals were reviewed and within normal limits. Growth and development is noted to be appropriate for age. No mental health concerns was expressed. Pap Smear: Speculum was inserted into the vagina and pap was obtained without difficulty. HPV testing was performed per age guideline. Patient was advised that pap results could take anywhere from 7 to 10 days to receive and our office will reach out to the patient with those once we have them. Patient can also view results via [employer]. I reinforced importance of condom use for STI prevention. Patient declined cultures to be performed with today's visit. Breast Exam: Upon examination, clinical breast exam was noted to be normal and screening mammogram was ordered and given to patient to have obtained. Patient was counseled on breast self-awareness, including the importance of knowing what is normal for her own breasts and promptly reporting any changes such as new lumps, skin dimpling, nipple discharge, or pain. Screening mammogram was recommended annually. Discussed signs and symptoms of breast cancer and when to seek medical attention. Answered all patient questions. Patient states urinary incontinence occasionally, we will send in premarin cream in to help alleviate symptoms. If not improved we did discuss urology or pt pelvic therapy. She will notify us if she desires the later treatments Follow Up: Patient is to return to our office in one year for annual exam unless needed otherwise. Documented by LAYLA Pedro on behalf of: Jerry Montalvo DO documented in this encounter Plan of Treatment DateTypeDepartmentCare Team (Latest Contact Info)Nysrcbpukkz36/23/2026 4:00 PM ESTProcedure Visit [facility] [address] [place] [address] [place] [id number] Jerry Montalvo, DO [address] [place] [address] NameTypePriorityAssociated DiagnosesOrder ScheduleBilateral screening mammogram ImagingRoutine Encounter for screening mammogram for malignant neoplasm of breast Expected: 01/17/2025 (Approximate), Expires: 03/19/2026THIN PREP TIS PAP AND HR HPV DNAPathology and CytologyRoutine Well woman exam with routine gynecological exam Ordered: 01/17/2025documented as of this encounter Visit Diagnoses Diagnosis Well woman exam with routine gynecological exam Routine gynecological examination Encounter for screening mammogram for malignant neoplasm of breast Urinary incontinence, unspecified type documented in this encounter Care Teams Team MemberRelationshipSpecialtyStart DateEnd Date Diego Reynolds MD PCP - GeneralFamily Eglcznjl71/4/24documented as of this encounter
--- OUTSIDE RECORDS SUMMARY | 2025-01-17 19:24 | XMS_ITS | CCD ---
Author Organization [facility] Care Team Providers Care Flat Bed Operator Name Role Phone JASON, JCARLOS Unavailable Unavailable JASON, JCARLOS Unavailable Unavailable FURLONG, DIEGO G Unavailable Unavailable Aron Roque Unavailable Unavailable JASON, JCARLOS Unavailable Unavailable JASON, JCARLOS Unavailable Unavailable FURLONG, DIEGO Unavailable Unavailable FURLONG, DIEGO Unavailable Unavailable MELO .JERO Attending Unavailable MELO ., JERO Consulting Unavailable JERO FAJARDO Admitting Unavailable Diego Reynolds MD Primary Care Provider YU MONTALVO Attending Unavailable Furlong DODiego Primary Care Provider [phone] LIZ, DIEGO Mccurdy Referring Unavailable FURLONG, DIEGO Mccurdy Primary Care Unavailable FURLONG, DIEGO G Attending Unavailable FURLONG, DIEGO G Referring Unavailable FURLONG, DIEGO G Primary Care Unavailable FURLONG, DIEOG G Referring Unavailable FURLONG, DIEGO G Primary Care Unavailable LEEANN LIZARRAGA Attending Unavailable FURLONG, DIEGO Mccurdy Referring Unavailable FURLONG, DIEGO Mccurdy Primary Care Unavailable Furlong Diego FAUST Primary Care Provider Diego Reynolds MD Primary Care Provider Diego Reynolds DO Primary Care Provider Allergies Allergy ClassificationReported Allergen(s)Allergy TypeDate of OnsetReaction(s) Facility (1 source)No Known Medication Allergies; Translations: [No Known Medication Allergies]Propensity to adverse reactions to drug (disorder)[facility] Medications Current Medications MedicationDrug Class(es)DatesSig (Normalized)Sig (Original)dicyclomine hydrochloride 20 mg oral tablet (5 sources)AnticholinergicStart: 85-14-6172zfga 1 tablet by mouth three times daily as neededdicyclomine (BENTYL) 20 mg tablet Take 1 tablet (20 mg total) by mouth 3 (three) times a day as needed. 05/16/2024 Activelevonorgestrel 0.370473 mg/hr intrauterine system (11 sources)Progestin, Progestin-containing Intrauterine DevicelevonorgestreL (MIRENA) 21 mcg/24hr (up to 8 yrs) 52 mg IUD as directed Intrauterine Active Levonorgestrel (Mirena, 52 MG,) 20 MCG/DAY intrauterine device as directed Intrauterine Activeondansetron 4 mg disintegrating oral tablet (5 sources)Serotonin-3 Receptor AntagonistStart: 26-64-4997kckaggvyslc ODT (ZOFRAN ODT) 4 mg disintegrating tablet Dissolve 1 tablet (4 mg total) on tongue asneeded. 05/16/2024 Active Completed/Discontinued Medications MedicationDrug Class(es)DatesSig (Normalized)Sig (Original)biotin 5 mg oral tablet (2 sources)Start: 05-28-2022 End: 79-29-0812mqaf 1 tablet by mouth in the morningbiotin 5 mg tablet Take 1 tablet by mouth in the morning. 100 tablet 05/28/2022 05/18/2024 Discontinued calcium carbonate 1250 mg / cholecalciferol 200 unt oral tablet (2 sources)Vitamin DStart: 05-28-2022 End: 42-49-9199ohpr 1 tablet by mouth once in the morningcalcium carbonate- vitamin D3 (OSCAL 500 + D) 500 mg(1,250mg) -200 units per tablet Take 1 tablet bymouth in the morning and 1 tablet in the evening. Take with meals. 100 tablet 05/28/2022 05/18/2024Discontinuedfamotidine 20 mg oral tablet (5 sources)Histamine-2 Receptor AntagonistStart: 02-20-2023 End: 70-54-9321xeel 1 tablet by mouth in the morning, then take 1 tablet by mouth at bedtimefamotidine (PEPCID) 20 mg tablet Take 1 tablet (20 mg total) by mouth in the morning and 1 tablet (20 mg total) before bedtime. 20 tablet 02/20/2023 05/18/2024 Discontinuedmultivitamin capsule (2 sources)Start: 05-28-2022 End: 06-21-1606mnjj 1 capsule by mouth in the morningmultivitamin capsule Take 1 capsule by mouth in the morning. 100 capsule 05/28/2022 05/18/2024 Discontinued Start: 04-58-5506nmzg 1 capsule by mouth in the morningmultivitamin capsule Take 1 capsule by mouth in the morning. 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 obstruction]Onset: 215958-82-8070CbooepbjIfweubhereubh and screening for infectious disease (1 source)Encounter for screening for human papillomavirus (HPV); Translations: [ENC SCREENING HUMAN PAPILLOMAVIRUS]Onset: 76-89-2489QnlfhilbCgwddfflxb disorders (3 sources)Perimenopausal state; Translations: [Menopausal and female climacteric states]Onset: 687011-25-8642VoilxvkPzbi disorders (7 sources)Recurrent major depressive episodes, mild ; Translations: [Major depressive disorder, recurrent, mild]Onset: 479739-59-3595PbwwaweMdyfy and unspecified benign neoplasm (1 source)Benign fibromatous neoplasm of skin; Translations: [Other benign neoplasm of skin, unspecified]11-71-8899KwqlkkztOmbxw nutritional; endocrine; and metabolic disorders (1 source)Overweight; Translations: [Overweight]41-21-0034VvpffhzmTjuhe screening for suspected conditions (not mental disorders or infectious disease) (8 sources)Encounter for screening for malignant neoplasm of cervix; Translations: [Patient encounter status]Onset: 36-13-2542MivwpffrEcetokkf codes; unclassified (1 source)Pain, unspecified; Translations: [Pain, unspecified]Onset: 05-17-2024 EpisodicUnclassified (1 source)CholelithiasisOnset: 10-36-4255Uxdkgyplcpvz (1 source)Annual ExamOnset: 05-10-2024 Past or Other Problems Problem ClassificationProblemDateDocumented DateEpisodic/ChronicMood disorders (6 sources)Mood disordersOnset: 938674-92-5571Xlhzd non-traumatic joint disorders (6 sources)Pain in right knee; Translations: [Pain in joint, lower leg]Onset: 642325-85-7991Nuloeqbu Results Test NameValueInterpretationReference RangeFacilityE2 [Mass/Vol]on 05-10-2024 YFLHGUKKC287.4 pg/mLNormalProMedica Martin Memorial HospitalComment on above:Result Comment: NON- FEMALES Mid follicular: 25-115 pg/mL [...] impact on estradiol recovery when using this assay.Performed By: #### 83770-1, 2243-4, 65909-7 #### [facility] ([id number]) [address] [place] [address], [address] [place], [place] [address]Xfalxwxvynh Qnon 95-21-2333KLADPCWG STIM HORMONE8.7 mIU/mLNormal [facility] HospitalComment on above:Result Comment: NORMAL FEMALE Luteal 1.8-5.1 mIU/mL Follicular 3.8-8.8 mIU/mL Mid Cycle 4.5-22.5 mIU/mL Post Amelie 16.7-113.6 mIU/mL Performed By: #### 92890-5, 2243-4, 80630-3 #### [facility] ([id number]) [address], [address] [place], [place] [address]Fdaeknxq Qnon 50-41-5380XUFQXRDLFAO HORMONE3.8 mIU/mLNormal [facility] HospitalComment on above:Result Comment: NORMAL FEMALE Follicular 2.1-10.9 mIU/mL Mid Cycle 19.2-103 mIU/mL Luteal 1.2-12.9 mIU/mL Post Amelie 10.9-58.6 mIU/mL Performed By: #### 92500-0, 2243-4, 93668-6 #### [facility] ([id number]) [address], [address] [place], [place] [address]IC TOMOSYNTHESIS SCREENING BIon 03-42-5356J[address] [address] Mammography Report Signed Patient: HALINA JACKSON MR#: [id number] : 1975 Acct:[id number] Age/Sex: 48 / F ADM Date: 03/15/24 Loc: MAMMO Attending Dr: Yu Montalvo D.O. Ordering Physician: Yu Montalvo D.O. Results: Date of Service: 03/15/24 Follow Up: Procedure(s): MM tomosynthesis screening BI Accession Number(s): [id number] cc: Yu Montalvo D.O.; Physician,Non-Staff Fly Patient Name: HALINA JACKSON MR#: [id number] : 1975 Exam Date: 03/15/2024 Ordering Doctor: DR Yu Montalvo . RADIOLOGY REPORT PROCEDURE: MM TOMOSYNTHESIS SCREENING BI COMPARISON: MG MAMM DIAGNOSTIC 3D BENITO CAD, 05/03/2021. MG MAMM BENITO SCRN W CAD DIG, 08/04/2018. MG MAMM BENITO SCRN W CAD DIG, 05/14/2017. INDICATIONS: screening for malignant neoplasm of breast Calculator Name NCI Breast Cancer Risk Assessment Tool 5 Year Breast Cancer Risk 0.60% Lifetime Breast Cancer Risk 5.80% Personal Breast Cancer No Personal Ovarian Cancer No Treatments None Family Cancers None LOCATION: [facility] BREAST COMPOSITION: The breasts are heterogeneously dense,which may obscure small masses. FINDINGS: DIAGNOSTIC CATEGORY 1--NEGATIVE. RIGHT BREAST: No significant suspicious finding. No significant change has occurred. LEFT BREAST: No significant suspicious finding. No significant change has occurred. RECOMMENDATIONS: ROUTINE MAMMOGRAM AND CLINICAL EVALUATION IN 12 MONTHS. PLEASE NOTE: A NORMAL MAMMOGRAM DOES NOT EXCLUDE THE POSSIBILITY OF BREAST CANCER. A CLINICALLY SUSPICIOUS PALPABLE LUMP SHOULD BE BIOPSIED. Dictated by: Minesh Myers M.D. on 03/15/2024 at 16:52 Approved by: Minesh Myers M.D. on 03/15/2024 at 16:54 Dictated By: Minesh Myers M.D. Signed By: 03/15/241654 DD/ 54 TD/TT: Employee Health Rn:TBHRadiology, Radiologist, MD - 03/15/2024 [place] [address] Mammography Report Signed Patient: HALINA JACKSON MR#: [id number] : 1975 Acct:[id number] Age/Sex: 48 / F ADM Date: 03/15/24 Loc: MAMMO Attending Dr: Yu Montalvo D.O. Ordering Physician: Yu Montalvo D.O. Results: Date of Service: 03/15/24 Follow Up: Procedure(s): MM tomosynthesis screening BI Accession Number(s): [id number] cc: Yu Montalvo D.O.; Physician,Non-Staff Fly Patient Name: HALINA JACKSON MR#: [id number] : 1975 Exam Date: 03/15/2024 Ordering Doctor: DR Yu Montalvo . RADIOLOGY REPORT PROCEDURE: MM TOMOSYNTHESIS SCREENING BI COMPARISON: MG MAMM DIAGNOSTIC 3D BENITO CAD, 05/03/2021. MG MAMM BENITO SCRN W CAD DIG, 08/04/2018. MG MAMM BENITO SCRN W CAD DIG, 05/14/2017. INDICATIONS: screening for malignant neoplasm of breast Calculator Name NCI Breast Cancer Risk Assessment Tool 5 Year Breast Cancer Risk 0.60% Lifetime Breast Cancer Risk 5.80% Personal Breast Cancer No Personal Ovarian Cancer No Treatments None Family Cancers None LOCATION: [facility] BREAST COMPOSITION: The breasts are heterogeneously dense,which may obscure small masses. FINDINGS: DIAGNOSTIC CATEGORY 1--NEGATIVE. RIGHT BREAST: No significant suspicious finding. No significant change has occurred. LEFT BREAST: No significant suspicious finding. No significant change has occurred. RECOMMENDATIONS: ROUTINE MAMMOGRAM AND CLINICAL EVALUATION IN 12 MONTHS. PLEASE NOTE: A NORMAL MAMMOGRAM DOES NOT EXCLUDE THE POSSIBILITY OF BREAST CANCER. A CLINICALLY SUSPICIOUS PALPABLE LUMP SHOULD BE BIOPSIED. Dictated by: Minesh Myers M.D. on 03/15/2024 at 16:52 Approved by: Minesh Myers M.D. on 03/15/2024 at 16:54 Dictated By: Minesh Myers M.D. Signed By: 03/15/241654 DD/ 54 TD/TT: Employee Health Rn: [facility] HealthcareRadiology Study observation (narrative)[facility] TOMOSYNTHESIS SCREENING BIOrdered By: Radiologist Radiology on 58-42-9187[facility] Work Phone: IGP,APTIMA HPV,AGE GDLNon 13-02-8720AGU GDLN ACOG TESTINGNote.[facility] HealthcareComment on above:TESTS RESULT FLAG UNITS REF RANGE LAB Clinician Provided Cytology Information Source.............Cervix;Endocervix No. of containers.. ThinPrep Vial Age Kristen ACOSTA Yumi... 30 FLAG LEGEND: L-Low Normal,H-High Normal,LL-Alert Low,HH-Alert High <-Panic Low,>-Panic High,A-Abnormal,AA-Critical Abnormal Performed at: 01 =[address] [address] Daniela Cifuentes MD, HPV APTIMANegativeNegativeNOMS HealthcareComment on above:This nucleic acid amplification test detects fourteen high- risk HPV types (16,18,31,33,35,39,45,51,52,56,58,59,66,68) without differentiation. Performed at: =[address] [id number] Carpentry Foreman: Daniela Cifuentes MD, Phone: [phone] Performed at: [address] [id number] Carpentry Foreman: Daniela Cifuentes MD, Phone: [phone] IGP, APTIMA HPV, RFX 16/18,45Note.NOMS HealthcareComment on above:TESTS RESULT FLAG UNITS REF RANGE LAB DIAGNOSIS: 02 NEGATIVE FOR INTRAEPITHELIAL LESION OR MALIGNANCY. Specimen adequacy: 02 Satisfactory for evaluation. No endocervical component is identified. Performed by: 02 Kunal Phipps, Clerical Order Filler (ASCP) . 02 Note: Note 02 The Pap [...] Low,>-Panic High,A-Abnormal,AA-Critical Abnormal Performed at: [address] [address] Daniela Cifuentes MD, BRUSH-SPATULA CERVIX ENDOCERVIX CLINISYNCNOMS [facility] ACOG PANEL 2: 30 to 65on 07-08-2022..NormalThe [facility] HospitalComment on above:Result Comment: Performed at: WBPerformed By: #### [id number] #### [facility] [address] [place] [address] Dr. Anabela Silverio Gdln ACOG Obimlar54-27WsalioTpaProMedica Flower HospitalComment on above:Performed By: #### [id number] #### [facility] [address] [address] [address] Anabela HandleyDIAGNOSIS:CommentSt. Mary's Medical Center, Ironton CampusComment on above: Result Comment: NEGATIVE FOR INTRAEPITHELIAL LESION OR MALIGNANCY. PREDOMINANCE OF COCCOBACILLI CONSISTENT WITH SHIFT IN VAGINAL ZAN IS PRESENT. Performed at: WBPerformed By: #### [id number] #### [facility] [address] [place] [address] Dr. Anabela Hicks AptimaPositiveAbnormalNegativeMercy Health St. Charles HospitalComveterans affairs medical center on above:Result Comment: This nucleic acid amplification test detects fourteen high-risk HPV types (16,18,31,33,35,39,45,51,52,56,58,59,66,68) without differentiation. Performed at: =GPerformed By: #### [id number] #### [facility] [address] [address] [address] Anabela Hicks Genotype 16NegativeNormalNegativeMercy Health St. Charles HospitalComment on above:Performed By: #### [id number] #### [facility] [address] [place] [address] Dr. Anabela Hicks Genotype 18,45NegativeNoalNegativeMercy Health St. Charles Hospital Comment on above:Performed By: #### [id number] #### [facility] [address] [place] [address] Dr. Anabela Hicks Genotype ReflexCommentSt. Mary's Medical Center, Iront[place] CampusComveterans affairs medical center on above:Result Comment: Criteria met, see HPV Genotype results. Performed at: WBPerformed By: #### [id number] #### [facility] [address] [place] [address] Dr. Anabela HandleyMethtosinology:CommentOhioHealth Marion General Hospital on above: Result Comment: This liquid based ThinPrep(R) pap test was screened with the use of an image guided system. Performed at: WBPerformed By: #### [id number] #### [facility] [address] [place] [address] Dr. Anabela HandleyNote:CommentNoAdams County Hospital on above:Result Comment: The Pap smear is a screening test designed to aid in the detection of premalignant and malignant conditions of the uterine cervix. It is not a diagnostic procedure and should not be used as the sole means of detecting cervical cancer. Both false-positive and false-negative reports do occur. . Performed at: WBPerformed By: #### [id number] #### [facility] [address] [address] [address] Anabela HandleyPerformed by:CommentSt. Mary's Medical Center, Ironton CampusComment on above: Result Comment: Tye Dominguez Clerical Order Filler (ASCP) Performed at: WBPerformed By: #### [id number] #### [facility] [address] [address] [address] Anabela HandleySpecimen adequacy:CommentSt. Mary's Medical Center, Ironton CampusComment on above:Result Comment: Satisfactory for evaluation. Endocervical and/or squamous metaplastic cells (endocervical component) are present. Performed at: WBPerformed By: #### [id number] #### [facility] [address] [place] [address] Dr. Anabela HandleyCOMPREHENSIVE METABOLIC PANELon 41-58-2072Aahigrj [Mass/Vol]4.7 g/dLNormal3.6-5.1Quest DiagnosticsComment on above:Performed By: #### 7600, 98896 #### [facility] [address], [address] [place] [address] Liquefaction And Regasification Helper: Mina Tillman MDAlbumin/Globulin [Mass ratio]1.9 {ratio}Normal 1.0-2.5Quest DiagnosticsComment on above:Performed By: #### 7600, 25026 #### [facility] [address] [address] Liquefaction And Regasification Helper: Mina Tillman MDALP [Catalytic activity/Vol]43 U/JBhpejc11-205 [facility] DiagnosticsComment on above:Performed By: #### 7600, 81009 #### [facility] [address] [address] Liquefaction And Regasification Helper: Mina Tillman MDALT [Catalytic activity/Vol]14 U/LNormal6-29 [facility] DiagnosticsComment on above:Performed By: #### 7600, 01125 #### [facility] [address] [place] [address] Liquefaction And Regasification Helper: Mina Merati MDAST [Catalytic activity/Vol]16 U/BLfmjcx72-51 [facility] DiagnosticsComment on above:Performed By: #### 7600, 00888 #### [facility] of [address], [address] [place] [address] Liquefaction And Regasification Helper: Mina Tillman MDBilirubin [Mass/Vol]0.7 mg/dLNormal0.2-1.2 [facility] DiagnosticsComment on above:Performed By: #### 7600, 14201 #### [facility] of [address], [address] [place] [address] Liquefaction And Regasification Helper: Mina Tillman MDBUN/CREATININE RATIONOT APPLICABLENormal6-22 Quest DiagnosticsComment on above:Performed By: #### 7600, 56426 #### [facility] of [address] [place] [address] Liquefaction And Regasification Helper: Mina Tillman MDCalcium [Mass/Vol]9.7 mg/dLNormal8.6-10.2Quest DiagnosticsComment on above:Performed By: #### 7600, 76990 #### [facility] of [address] [place] [address] Liquefaction And Regasification Helper: Mina Tillman MDChloride [Moles/Vol]104 mmol/UBiqefu27-191 [facility] DiagnosticsComment on above:Performed By: #### 7600, 31361 #### [facility] of [address], [address] [place] [address] Liquefaction And Regasification Helper: Mina Tillman MDCO2 [Moles/Vol]26 mmol/QUounit91-80Wucwo DiagnosticsComment on above:Performed By: #### 7600, 17605 #### [facility] of [address] [place] [address] Liquefaction And Regasification Helper: Mina Tillman MDCreatinine [Mass/Vol]0.72 mg/dLNormal0.50-1.10 [facility] DiagnosticsComment on above:Performed By: #### 7600, 07614 #### [facility] of [address], [address] [place] [address] Liquefaction And Regasification Helper: Mina Tillman MDeGFR NON-AFR. RTLAQDGH115 mL/min/1.76n2Hglhqo> OR = 60Quest DiagnosticsComment on above:Performed By: #### 7600, 37972 #### [facility] of [address], [address] [place] [address] Liquefaction And Regasification Helper: Mina Tillman MDGFR/1.73 sq M.predicted among blacks MDRD (S/P/Bld) [Vol rate/Area]117 mL/min/{1.73_m2}Normal> OR = 60[facility] Comment on above:Performed By: #### 7600, 15201 #### [facility] of [address], [address] [place] [address] Liquefaction And Regasification Helper: Mina Tillman MDGlobulin (S) [Mass/Vol]2.5 g/dLNormal1.9-3.7 Quest DiagnosticsComment on above:Performed By: #### 7600, 62039 #### [facility] [address], [address] [place] [address] Liquefaction And Regasification Helper: Mina Tillman MDGlucose [Mass/Vol]88 mg/oIBbbzcs56-18Wcozi DiagnosticsComment on above:Result Comment: Fasting reference intervalPerformed By: #### 7600, 72683 #### [facility] [address], [address] [place] [address] Liquefaction And Regasification Helper: Mina Tillman MDPotassium [Moles/Vol]3.9 mmol/LNormal3.5-5.3 Quest DiagnosticsComment on above:Performed By: #### 7600, 76120 #### [facility] of [address] [place] [address] Liquefaction And Regasification Helper: Mina Tillman MDProtein [Mass/Vol]7.2 g/dLNormal6.1-8.1Quest DiagnosticsComment on above:Performed By: #### 7600, 82357 #### [facility] of [place] [address], [address] [place] [address] Liquefaction And Regasification Helper: Mina PALACIOSodium [Moles/Vol]140 mmol/UBfvwww381-717Fvqyg DiagnosticsComment on above:Performed By: #### 7600, 44008 #### [facility] [address], [address] [place] [address] Liquefaction And Regasification Helper: Mina Tillman MDUrea nitrogen [Mass/Vol]12 mg/dLNormal7-25 Quest DiagnosticsComment on above:Performed By: #### 7600, 58790 #### [facility] [address], [address] [place] [address] Liquefaction And Regasification Helper: Mina Tillman MDLIPID PANEL, STANDARD 03-09-8580Hexzbxqkccm [Mass/Vol]141 mg/dLNormal<200Quest DiagnosticsComment on above:Order Comment: FASTING:YES FASTING: YESPerformed By: #### 7600, 94445 #### [facility] of [address], [address] [place] [address] Liquefaction And Regasification Helper: Mina Tillman MDCholesterol in HDL [Mass/Vol]52 mg/dLNormal> OR = 50Quest DiagnosticsComment on above:Order Comment: FASTING:YES FASTING: YESPerformed By: #### 7600, 69789 #### [facility] [address], [address] [place] [address] Liquefaction And Regasification Helper: Mina Tillman MDCholesterol in LDL [Mass/Vol]75 mg/dLNormal [facility] DiagnosticsComment on above:Order Comment: FASTING:YES FASTING: YESResult Comment: Reference range: <100 Desirable range <100 mg/dL for primary prevention; <70 mg/dL for patients with CHD or diabetic patients with > or = 2 CHD risk factors. LDL-C is now calculated using the Kristen calculation, which is a validated novel method providing better accuracy than the Friedewald equation in the estimation of LDL-C. Jorge BENJAMIN et al. JOSÉ LUIS. 2013;310(19): 9828-2921 (http://education.[facility].[employer]/faq/IJR320)Performed By: #### 7600, 29983 #### [facility] [address], [address] [place] [address] Liquefaction And Regasification Helper: Mina STEINBERGholesterol.total/Cholesterol in HDL [Mass ratio]2.7 {ratio}Normal<5.0Quest DiagnosticsComment on above:Order Comment: FASTING:YES FASTING: YESPerformed By: #### 7600, 60052 #### [facility] [address], [address] [place] [address] Liquefaction And Regasification Helper: Mina BRADFORD HDL UVYNOQYRRTQ50 mg/dL (calc)Normal<130 Quest DiagnosticsComment on above:Order Comment: FASTING:YES FASTING: YESResult Comment: For patients with diabetes plus 1 major ASCVD risk factor, treating to a non-HDL-C goal of <100 mg/dL (LDL-C of <70 mg/dL) is considered a therapeutic option.Performed By: #### 7600, 32381 #### [facility] [address], [address] [place] [address] Liquefaction And Regasification Helper: Mina Tillman MDTriglyceride [Mass/Vol]56 mg/dLNormal<150Quest DiagnosticsComment on above:Order Comment: FASTING:YES FASTING: YESPerformed By: #### 7600, 48452 #### [facility] [address], [address] [place] [address] Liquefaction And Regasification Helper: Mina Tillman MDCBC (INCLUDES DIFF/PLT)on 97-56-2636JBTFP BLOOD CELL COUNTNormalQuest DiagnosticsComment on above:Result Comment: TEST NOT PERFORMED Specimen received clotted.Performed By: #### 6399 #### [facility] [address], [address] [place] [address] Liquefaction And Regasification Helper: Mina Tillman MDIntraoperative Noteon 37-89-3109Essnlgootsgjci [id number]#1.00[facility] Coding Summaryon 08-90-9515Prbium SummaryCODING DATE: 12/25/2016 [facility] STATUS: Home PAYOR: Commercial Insurance APC DESCRIPTION 5414 Level 4 Gynecologic Procedures ADMIT DX: REASON FOR VISIT DX: R87.619 Unspecified abnormal cytological findings in specimens from cervix uteri FINAL DX: PRINCIPAL: N87.1 Moderate cervical dysplasia SECONDARY: N72 Inflammatory disease of cervix uteri PYMT PROC APC STAT DESCRIPTION DOCTOR NAME DATE 00450 5414 J1 Conization of cervix, 12/09/2016 with or without fulguration, with or without dilation and curettage, with or without repair; cold knife or laser NOTE: The code number assigned matches the documented diagnosis and / or procedure in the patient's chart. However, the narrative phrase printed from the coding software may appear abbreviated, or result in slightly different t erminology. Coded By: Patrica Covington Date Saved: 12/25/2016 01:41 pmNormal [facility] - Other [facility] Resultson 67-12-9377Fwi - Other Lab Results [id number]#1.00[facility] History and Physicalon 27-87-5495Vfabbyk and Physical [id number]#[address] [place] [address] Operative Report - Surgeon/Physicianon [id number] Report - Surgeon/[id number]#1.00[facility] Sendout Teston 05-94-4060Lklutvrap Send Out.See [facility] HospitalComment on above:Order Comment: cervical cone biopsy with suture at 12 o' clock positionPerformed By: #### [id number] ####[facility] (DEFAULT)[address], [place] [address]Oerncwzl Orderson 57-43-6793Qdjdcbzs Orders [id number]#1.00[facility] Consent Formson 80-86-7266Flhevzl Forms [id number]#1.00[facility] Medication Managementon 51-03-8398Gjlqlofhrw Management [id number]#1.00[facility] Anesthesia Noteon 16-21-6561Jlfmndbyot NotePatient: HALINA JACKSON : 41 years Sex: FEMALE : [birth year]Associated Diagnoses: NoneAuthor: Aron Roque MDPostoperative InformationPost Operative Note: Post Anesthesia Care Unit.Anesthetic utilized: Monitored anesthesia care.Health StatusAllergies:Allergic Reactions (All)No Known Medication AllergiesPhysical ExaminationVS/MeasurementsVital Signs (last 24 hrs) Last ChartedHeart Rate Peripheral L48 bpm (DEC 09 12:10)Resp Rate L 11 br/min (DEC 09 12:10)SBP 92 mmHg (DEC 09 12:10)DBP L 57 mmHg (DEC 09 12:10)SpO2 100 % (DEC 09 12:10)Review / ManagementCondition: Stable.AssessmentAnesthetic outcomeNo anesthetic complications noted.Adequate pain relief.No Complaint of nausea and vomiting.PlanTransfer/ Discharge: Patient can be discharged from PACU when criteria met.Condition good.[Electronically Signed on: 12/09/2016 12:15 EDT] Aron Rqoue MD[Verified on: 12/09/2016 12:15 EDT] Aron Roque MD [facility] SystemAnesthesia NotePatient: HALINA JACKSON : 41 years Sex: FEMALE : [birth year]Associated Diagnoses: NoneAuthor: Jude, Aron MDPreoperative InformationAnesthesia history: Patient history negative Family history: No prior anesthesia problems.Review of SystemsConstitutional: Negative.Respiratory: No shortness of breath.Cardiovascular: No chest pain.Health StatusAllergies:Allergic Reactions (All)No Known Medication AllergiesCurrent medications:Home Medications (1) ActiveNexplanon 68 mg subcutaneous implantProblem list (past medical history):All ProblemsNo Chronic Problems / Cerner NKPHistoriesFamily History:No family history items have been selected or recorded.Procedure history:Varicose veins ([id number]). ([id number]).Social History Alcohol Assessment Beer, 1-2 times per week Tobacco Assessment Never (less than 100 in lifetime) Tobacco Use:..Social & Psychosocial AulanrYsrihux56/19/2017 Type: Beer Frequency: 1-2 times per ohikDhpofmr26/19/2017 Smoking tobacco use: Never (less than 100 in l.Physical ExaminationVS/MeasurementsVital Signs (last 24 hrs) Last ChartedHeart Rate [...] ResultsPlanAmerican Society of Anesthesiologists#(ASA) physical status classification: ClassI.Anesthetic Preoperative PlanAnesthesia: Monitored anesthesia care. Anesthetic plan, risks, benefits, and alternatives discussed with the patient and/or family. Patient verbalized understanding. Informed consent was given. Consent was signed by the patient. None present at interview. Communication: face to face with patient 10 minutes.[Electronically Signed on: 12/09/2016 10:58 EDT] Aron Roque MD[Verified on: 12/09/2016 10:58 EDT] Aron Roque MDOhio State Health SystemInpatient Clinical Summaryon 61-29-9147Jhymyvtwe Clinical Summary [facility] SURGERYClinical Discharge SummaryPERSON INFORMATIONName HALINA JACKSON Age 41 Years 75Sex FEMALE Language South African PCP LIZ, DIEGOMarital Status Med Service Ambulatory SurgeryN [id number] Acct# Arrival 12/09/16 08:14:15Visit Reason S URGERY - COLD KNIFE CONE BX Acuity LOS 032 22:31Address:[address] [facility] [address]Dagmkma:PROVIDER INFORMATIONVITALS INFORMATIONVital Sign Triage LatestTemp OralTemp Temporal 37.4 DegC 37.4DegCTemp IntravascularTemp AxillaryTemp Jitvte83 Sat 100 % 99 %Respiratory Rate 16 br/min 16 br/minP eripheral Pulse Rate 79 bpm 52 bpmApical Heart RateBlood Pressure 116 mmHg / 72 mmHg 110 mmHg / 76 mmHgComment:MEDICAL INFORMATIONAllergy Info:No Known Medication AllergiesPrescriptions Given:Prescription Displayacetaminophen- codeine (Tylenol with Codeine #3 oral tablet) 1 tab(s), PO, q4hr, PRN: for pain, # 10 tab(s), 0 Refill(s)ibuprofen (ibuprofen 600 mg oral tablet) 1 tab(s) ( 600 mg ), PO, q6hr, PRN: as needed for pain, # 60 tab(s), 0 Refill(s)Home Meds Displayetonogestrel (Nexplanon 68 mg subcutaneous implant) 0 Refill(s)Medication List:Fill New Prescriptions:acetaminophen-codeine (Tylenol with Codeine #3 oral tablet) 1 [...] INFORMATIONDischarge Disposition:Discharge Location:DEPART REASON INCOMPLETE INFORMATIONPATIENT EDUCATION INFORMATIONInstructions:Conization of the Cervix, Care AfterFollow up:With: A ddress: When:DIEGO REYNOLDS [address] [place] [address] Business (1)DIAGNOSIS1:High grade squamous intraepithelial lesion on cytologic smear of cervix (hgsil)Comment:PHYS DOC NOTESNoOhioHealth Doctors HospitalInpatient Patient Summaryon 55-82-6402Nuiogsnfh Patient Summary[address] [phone] Discharge InstructionsName: HALINA JACKSON ADOB: [birth year] Address: [address] [place], [place] [address]Primary Care Provider:Name: DIEGO REYNOLDSPhone: Discharge Diagnosis: 1:High grade squamous intraepithelial lesion on cytologic smear of cervix (hgsil)If you receivedany narcotics, sedation, or any other medication that causes drowsiness for the next 24 hours, unless otherwise directed:? Do not drive a car.? Do not operate machinery such as power tools, lawn mowers, drills, sewing machines, or stoves? Avoid alcoholic beverages and drugs for allergies, nerves, or sleep? Do not make important personal or business decisions or sign any legal documentsBucyrus Community Hospital would like to thank you for allowing us to assist you with your healthcare needs. The following includes patient education materials and information regarding your injury/illness.HALINA JACKSON has been given the following list of follow-up instructions, prescriptions, and patient education materials:Follow-up InstructionsWith: Address: When:[place], [place] Business (1)MedicationsDuring the course of your visit, your medication list was updated with the most current information. The details of those changes are reflected below:New Med icationsPrinted Prescriptionsacetaminophen-codeine (Tylenol with Codeine #3 oral tablet) 1 [...] keep with you.acetaminophen-codeine (Tylenol with Codeine #3 oraltablet) 1 tab(s) Oral Every 4 hours as needed for pain. Refills: 0.etonogestrel (Nexplanon 68 mg subcutaneous implant)ibuprofen (ibuprofen 600 mg oral tablet) 1 tab(s) Oral Every 6 hours as needed asneeded for pain. Refills: 0.Take only the medications listed above. Contact your doctor prior to taking any medications not on this list.Diet & ActivityPatient Activity Level:Patient Diet:Patient Activity Restrictions:Comment:Patient education materials, if any, will display belowConization of the Cervix, Care AfterRefer to this sheet in the next few weeks. These instructions provide you withinformation on caring for yourself after your procedure. Your health care provider may also give you more specific instructions. Your treatment has been planned according to current medical practicesbut problems sometimes occur. Call your health care [...] You may have a black vaginal discharge thatlooks similar to coffee grounds. This is from [...] for the first week. Do not take baths,swim, or use hot tubs until your health [...] worsening pain.MAKE SURE YOU:? Understand these instructions.? Willwatch your condition.? Will get help right away if you are not doing well or get worse.This information is not intended to replace advice given to you by your health care provider. Make sure you discuss any questions you have with your health care provider.Document Released: 02/23/2006 Document Revised: 02/28/2014 Document Reviewed: 08/19/2013Elsevier Interactive Patient Education ?2016 [employer] Viruses or BacteriaWhat?s got you sick?Antibiotics only treat bacterial infections. Viral illnesses cannot be treated with antibiotics. When an antibiotic is not prescribed, ask your healthcare professional for tips on how to relieve symptoms and feel better. Usual CauseIllnessVirusesBacteria An tibiotic NeededCold/Runny Nose NOBronchitis/Chest Cold (in otherwise healthy children and adults) NOWhooping Cough YesFlu NOStrep Throat YesSore Throat (except strep) NOFluid in the middle ear (otitis media with effusion) NOUrinary Tract Infection YesAntibiotics Aren?t Always the Answerwww.cdc.gov/getsmart GET SMART Know When Antibiotics [place]. Department of Health and Human ServicesCenters forDisease Control and Prevention November 2013[facility] Intraoperative Recordon [id number] Intraoperative RecordMAGR Intra-Op Record Summary Primary Physician: Jcarlos Coley DO Finalized Date/Time: 12/09/16 12:11:39 Pt. Name: HALINA JACKSON/Sex: 1975 FEMALE Med Rec #: [id number] Physician: Jcarlos Coley DO Financial #: [id number] Pt. Type: D Room/Bed: / Admit/Disch: 12/09/16 [...] Entry 2 Entry 3 Case Attendee Jcarlos Coley DO, Bradley MD Nikolaus, Linda M Role Performed Surgeon - Primary Anesthesiologist of Smog Technician Record Time In 12/09/16 11:15:00 12/09/16 11:15:00 [...] RN Role Performed Scrub Personnel Scrub Personnel Carbide Powder Processor Time In 12/09/16 11:15:00 12/09/16 11:15:00 12/09/16 11:15:00 Time Out 12/09/16 11:51:00 12/09/16 11:51:00 12/09/16 11:51:00 Procedure Cold Cone Biopsy Cold Cone Biopsy Cold Cone Biopsy Last Modified By: Radha Beebe RN, LoraRN Fresch, Lora RN 12/09/16 12:01:02 12/09/16 12:01:02 12/09/16 12:01:02 Entry 7 Case Attendee Elsa Pñea RN Role Performed Carbide Powder Processor Time In 12/09/16 11:15:00 Time Out 12/09/16 11:51:00 Procedure Cold Cone Biopsy Last Modified By: Radha Beebe RN 12/09/16 12:01:02 Surgical Procedures MAGR Pre-Care Text: A.20 Verifies operative procedure, surgical site, and laterality Im.150 Develops individualized plan of care Entry 1 Procedure Cold Cone Biopsy Primary Procedure Yes Primary Surgeon Jcarlos Coley DO Surgeon Comment COLD KNIFE CONE BX [...] Time Out MAGR Entry 1 Time out da te/time 12/09/16 11:24:00 All team members Yes have introduced themselves by name and role Surgeon,Yes Surgeon reviews Yes anesthesia, nurse critical or [...] High Lithotomy Left Arm Position Extended on paddedarm Right Arm Position Extended on padded arm [...] Text: A.20 Verifies operative procedure, surgical site, andlaterality A.20.2 Assesses the risk for unintended retained foreign body Im.20 Performs required counts Entry 1 Procedure Cold Cone Biopsy Counts Verification Initial Counts Items included in Sponges, Sharps Initial Counts Manual the Initial Count Method Initial Counts Radha Beebe RN, Initial Count Time 12/09/16 11:20:00 Performed By Wilbur Conrad GROUNDMAN Counts Verification Final Counts Items Included in Sponges, Sharps Final Count Method Manual Final Count Final Count Status Correct Final Counts Radha Beebe RN, Bear, Performed By Dagmar Marks GROUNDMAN Final Count Time 12/09/16 11:44:00 Surgeon noti fied of Yes final counts status Outcome Met (O.20) Yes Last Modified By: Radha Beebe RN 12/09/16 11:45:13 Post-Care Text: E.50 Evaluates results of the surgical count O.20 Patient is free from unintended retained foreign objects Cautery MAGR Pre-Care Text: A.240 Assesses baseline skin condition A.40 Verifies presence of prosthetics or corrective devices Im.50 Implements protective measures to pre vent injury due to electrical sources Entry 1 [...] Modified By: Radha Beebe RN 12/09/16 12:02:04 Post- Care Text: E.40 Evaluates correct processes have been performed for specimen handling and disposition O.40 Patient's specimen(s) is managed in the appropriate manner Medication Administration MAGR Pre-Care Text: A.210 Identifies physiological status Im.220 Administers prescribed medications Entry 1 Entry 2 Entry 3 Time Administered 12/09/16 11:28:00 12/09/16 11:28:00 12/09/16 11:40:00 Medication LIDOCAINE 1% WITH EPI ACETIC ACID 5% ASTRIN SAFETY INTERN GEL Route of Admin SubQ TOP TOP Dose 10 mL 16 gm Volume 30 mL 15 mL 16 gm By Dario Coley DO, DO, Kurt D Harrison DO, Kurt [...] Oral airway, Simple mask Flow Rate 6 L/minLast Modified By: Radha Beebe RN 12/09/16 12:06:25 Case Comments Finalized By: Radha Beebe RN Document Signatures Signed By: Radha Beebe RN 12/09/16 12:11[facility] PACU Recordon [id number] PACU RecordMAGR PACU Record Summary Primary Physician: Jcarlos Coley DO Finalized Date/Time: 12/09/16 12:32:35 Pt. Name: HALINA JACKSON/Sex: 1975 FEMALE Med Rec #: [id number] Physician: Jcarlos Coley DO Financial #: [id number] Pt. Type: D Room/Bed: / Admit/Disch: 12/09/16 [...] using discharge criteria. Finalized By: Joanne Ruby RNDocument Signatures Signed By: Joanne Ruby RN 12/09/16 12:32 [facility] Postoperative Recordon [id number] Postoperative RecordMA Phase II Record Summary Primary Physician: Jcarlos Coley DO Finalized Date/Time: 12/09/16 14:05:04 Pt. Name: HALINA JACKSON/Sex: 1975 FEMALE Med Rec #: [id number] Physician: Jcarlos Coley DO Financial #: [id number] Pt. Type: D Room/Bed: / Admit/Disch: 12/09/16 08:14:15 - Institution: Phase II Case Times MAGR Pre-Care Text: Patient is free from s/sof injury. Patient remains free from compromised physical state related to surgery or anesthesia. Patient comfort maintained. Patient/family verbalize understanding of discharge instructions. Entry 1In PACU II 12/09/16 12:25:00 Ready for PACU II 12/09/16 13:38:00 Discharge Discharge from PACU 12/09/16 13:47:00 II Last Modified By: Chasity Hayward 12/09/16 13:47:26 Post-Care Text: The patient remains free from s/s of injury. Patient's vital signs stable, circulation maintained, return to preop mental and physical status, opsite/dressing intact, minimal or absent nausea and vomiting, toleratespo intake. Patient verbalizes adequate pain control. Patient/family [...] DISCHARGED PER WC TO PRIVATE CAR, INSTRUCTIONS ANDRX IN HAND, DRIVEN PER FRIEND. Finalized By: Chasity Hayward Document Signatures Signed By: Chasity Hayward 12/09/16 13:47 Chasity Hayward 12/09/16 14:05 Unfinalized History Date/Time Username Reasonfor Unfinalizing Freetext Reason for Unfinalizing 12/09/16 14:03 [facility] Correct DocumentationOhioHealth [facility] Preoperative Recordon [id number] Preoperative RecordMA Pre-Op Record Summary Primary Physician: Jcarlos Coley DO Finalized Date/Time: 12/09/16 11:04:33 Pt. Name: HALINA JACKSON Jarrett Meza./Sex: 1975 FEMALE Med Rec#: [id number] Physician: Jcarlos Coley DO Financial #: [id number] Pt. Type: D Room/Bed: / Admit/Disch:12/09/16 08:14:15 - Institution: Pre-Op Case Times MAGR [...] consent correct. General Comments: arrives ambulatory to [facility], denies recent cp, sob, new illnesses, pacemaker, defibrillator or sleep apnea Finalized By: Scott Jackson RN Document Signatures Signed By: Scott Jackson RN 12/09/16 11:04 [facility] SystemOperative Report - Surgeon/Physicianon 12-09-2016 Operative Report - Surgeon/PhysicianDATE OF PROCEDURE: 12/09/2016PREOPERATIVE DIAGNOSIS: Abnormal colposcopy (high grade squamousintraepithelial lesion).POSTOPERATIVE DIAGNOSIS: Abnormal colposcopy (high grade squamousintraepithelial lesion), pending pathology.PROCEDURE: Cold knife cervical cone biopsy, paracervical block.SURGEON: Jcarlos Coley DOANESTHESIA: Aron Roque M.D.; GeneralASSISTANT: SARA RutledgeACOMPLICATIONS: [...] the normal sterilefashion.Next, a weighted speculum was p laced into the patient's vagina and theanterior aspect [...] remaining with interlocking 0 sutures and two aprpcy-fh-paqra suturesat 3 and 9 o'clock. Then Monsel's solution was placed into the remainingportion of the cervix. Excellent hemostasis was noted. All instruments werethen removed from the vagina. Sponge, lap, needle and instrument counts werecorrect x2. The patient was taken to the PACU awake and in stable condition.MARGARET Hebert #: [id number]: 12/09/2016T: 12/09/2016[Electronically Signed on: 12/10/2016 20:04 EDT] Jcarlos Coley DO, D.O.[Verified on: 12/10/2016 20:04 EDT] Jcarlos Coley DO, D.O.[Transcribed on: 12/09/2016 16:29 EDT][facility] Test Urine 1on 12-09-2016U PregNegativeOhio State Health SystemComment on above:Performed By: #### [id number] ####[facility] (DEFAULT)[address] [place] [address] 32781C Preg Internal ControlSouthern [facility] Medical Center Comment on above:Performed By: #### [id number] ####[facility] (DEFAULT)[address] [place] [address] 09441Azissvaj Note - Nurseon 03-35-9177iWXVWkx-op call done, instructed pt to arrive @ 0830 on 12-09-16, NPO after midnight- verbalized understanding.[Electronically Signed on: 12/08/2016 12:07 EDT] Frances Drake RN[Verified on: 12/08/2016 12:07 EDT] Frances Drake RN [facility] HospitalCoding Summaryon 03-58-9016Xrwlds SummaryCODING DATE: 12/04/2016 [facility] STATUS: Home PAYOR: Commercial Insurance ADMITDX: REASON FOR VISIT DX: Z01.812 Encounter for [...] By: Laure Butler Date Saved: 12/04/2016 11:[address] [facility] CenterProvider Orderson [id number] Orders [id number]#1.00OTGTIFFOhio State Health System.Auto Diff 1on 41-91-3582Rhgx Baso %0.3 %Normal0.2-2.0[facility]igh HospitalComment on above:Performed By: #### [id number], [id number] ####[facility] (DEFAULT)[address] [place] [address] 18582Tiur Simpson %9 %Normal1-12[facility] Comment on above:Performed By: #### [id number], [id number] ####[facility] (DEFAULT)[address] [place] [address] 75662Frgv Neut %67 %Hxmpiv77-13 [facility] HospitalComment on above:Performed By: #### [id number], [id number] ####[facility] (DEFAULT)[address] [place] [address] 69896Vkov Abs# 0.0 b39Kxfjpb6.0-0.2Magrwadsworth-rittman hospital HospitalComment on above:Performed By: #### [id number], [id number] ####[facility] (DEFAULT)[address] [place] [address] 24513Meg Abs#0.0 v72Zvwvyl5.0-0.4[facility] HospitalComment on above:Performed By: #### [id number], [id number] ####[facility] (DEFAULT)[address] [place] [address] 09159Hkawzurcixr/100 leukocytes0.4 %Low0.9-4.0[facility] Comment on above:Performed By: #### [id number], [id number] ####[facility] (DEFAULT)[address] [place] [address] 61764Yrqpqxiuact4.3 w36Ircblh3.3-2.9 [facility] HospitalComment on above:Performed By: #### [id number], [id number] ####[facility] (DEFAULT)[address] [place] [address] 01385 Lymphocytes/100 mctjzbmsfy33 %Iosojr21-61Hvgxjnwq HospitalComment on above: Performed By: #### [id number], [id number] ####[facility] (DEFAULT)[address] [place] [address] 79360Joun Abs#0.9 z98Orqv4.0-0.8[facility] HospitalComment on above:Performed By: #### [id number], [id number] ####[facility] (DEFAULT)[address] [place] [address] 36292Haen Abs#6.8 p65Tudgrv1.5-9.2Magrwadsworth-rittman hospital HospitalComment on above:Performed By: #### [id number], [id number] ####[facility] (DEFAULT)[address] [place] [address] 88182WQT w/ Auto Diffon 05-05-7174Vpwjehurttg distribution width Auto Ratio (RBC)11.9 %Iqxzpe56.5-15.0 [facility] HospitalComment on above:Performed By: #### [id number], [id number] ####[facility] (DEFAULT)[address] [place] [address] 83798 Erythrocytes (RBC)4.28 k23Fjfipt1.70-5.30[facility] HospitalComment on above: Performed By: #### [id number], [id number] ####[facility] (DEFAULT)[address] [place] [address] 75667Xukklzwufc (HCT)39.7 %Eedfuq44.7-40.4Magrwadsworth-rittman hospital HospitalComment on above:Performed By: #### [id number], [id number] ####[facility] (DEFAULT)[address] [place] [address] 44630Nsqxizzvnw mass conc (Bld)13.8 g/zIToswtf50.3-15.9Magrwadsworth-rittman hospital HospitalComment on above:Performed By: #### [id number], [id number] ####[facility] (DEFAULT)[address] [place] [address] 58337Tbg Diff?AutoNormalDcgruder HospitalComment on above:Performed By: #### [id number], [id number] ####[facility] (DEFAULT)[address] [place] [address] 84422VLD68 ldOjfdah95-95Ugeiixrz HospitalComment on above:Performed By: #### [id number], [id number] ####[facility] (DEFAULT)[address] [place] [address] 41357MDNZ mass conc (RBC)35 g/iIBsrnbt26-04Czodfgld HospitalComment on above:Performed By: #### [id number], [id number] ####[facility] (DEFAULT)[address] [place] [address] 39988UAX83 wQBdxxco48-500Zipxchvb HospitalComment on above:Performed By: #### [id number], [id number] ####[facility] (DEFAULT)[address] [place] [address] 94023Sspmsxfc mean volume (PMV)10.2 fLNormal 6.3-10.2Magruder HospitalComment on above:Performed By: #### [id number], [id number] ####[facility] (DEFAULT)[address] [place] [address] 78881Toiajnulz 235 t35Nxonhh445-698Bavyqqkz HospitalComment on above:Performed By: #### [id number], [id number] ####[facility] (DEFAULT)[address] [place] [address] [place] [address]HRF (Leukocytes)10.0 d17Bzqdgjw Interpretation [facility] Comment on above:Performed By: #### [id number], [id number] ####[facility] (DEFAULT)[address] [place] [address] Vital Signs Date TimeVital SignValuePerforming BktytvgteWqiidyup41-50-9098 13:18-0400Body awcknx511.6 cmMichael Grillis DO Work Phone: [facility]03-12-2025 13:18-0400Body mass index (BMI) [Ratio]26.15 kg/l1Ieeeuew Grillis DO Work Phone: [facility]03-12-2025 13:18-0400Body oeiyfj90.48 kgMichael Grillis DO Work Phone: [facility]03-04-2025 15:23-0500Body denpek496.6 cmDennis Furlong DO Work Phone: [facility]03-04-2025 15:23-0500Body mass index (BMI) [Ratio]25.89 kg/t3Qdoxci Furlong DO Work Phone: [facility]03-04-2025 15:23-0500Body vqswwyrdjfh56.2 [degF]Diego Furlong DO Work Phone: [facility]03-04-2025 15:23-0500Body sgwopl86.76 kgDennis Furlong DO Work Phone: [facility]03-04-2025 15:23-0500Diastolic blood fjphudbk45 mm[Hg]Diego Furlong DO Work Phone: [facility]03-04-2025 15:23-0500Heart rate 71 /minDennis Furlong DO Work Phone: [facility]03-04-2025 15:23-0500 Respiratory rate18 /minDennis Furlong DO Work Phone: [facility]03-04-2025 15:23-8577QcW8% (BldA) [Mass fraction]98 %Diego Reynolds DO Work Phone: [facility]03-04-2025 15:23-0500Systolic blood wlpkelut39 mm[Hg]Diego Reynolds DO Work Phone: [facility]11-04-2024 14:27-0500Body .6 cmCorejyoti Montalvo DO Work Phone: [facility] HealthcareEpkwwksfxj57-85-4553 14:27-0500Body mass index (BMI) [Ratio]25.5 kg/v2HmzfpYu Montalvo DO Work Phone: [facility] HealthcareZnvxmvyzgw91-19-9380 14:27-0500Body .67 kgCorejyoti Montalvo DO Work Phone: [facility] HealthcareJuwvkaxyuo13-87-0452 14:27-0500Diastolic blood tqporens18 mm[Hg]Yu Montalvo DO Work Phone: [facility] HealthcareIlanqtctdg90-48-3048 14:27-0500Systolic blood fgfxwtla552 mm[Hg]Yu Montalvo DO Work Phone: [facility] Encounters Encounter DateEncounter TypeCare ProviderFacilityStart: 11-08-2024 End: 46-04-4741Uvstah-up encounterDencecilia Reynolds DO Work Phone: [facility] - Family MedicineComment on above:Cologuard Non-ProMedicaStart: 08-05-2024 End: 96-29-5701Nayubkumh encounterPrincess Parr CMAProMedica Physicians General SurgeryStart: 06-23-2024 End: 42-93-3988Hbjvnfhra encounterShawnee Coulter CMAProMedica Physicians Internal Medicine/Gaston EstradaMDComment on above:Preventative ScreeningStart: 05-18-2024 End: 75-36-5373Fshmoj outpatient visit 25 minutesMichaedave E Santos DO Work Phone: [facility] Physicians General SurgeryComment on above: Calculus of gallbladder with chronic cholecystitis without obstruction (Primary Dx); Epigastric painStart: 05-18-2024 End: 24-80-5997nuffhopvxiPWQMYPRWalla [facility] P[facility] Start: 50-38-9144pzcmlmhadnSHZGEGParkside [facility] [place] [facility] Start: 05-10-2024 End: 55-24-3188sbnrzuzrikSDJTVIAudie L. [facility] HospitalStart: 05-10-2024 End: 50-93-0732Bnsjocs encounter statusV[facility] Health [facility] DO Work Phone: [facility] Work Phone: Start: 05-10-2024 End: 34-02-1166Oymccgus preventive med est patient 40-64yrsDennis Sumemrjosé luis DO Work Phone: [facility] Physicians Internal Medicine - Family MedicineComment on above:Well adult exam (Primary Dx); Perimenopausal; Screen for colon cancer; Mild recurrent major depression (CMS-HCC); Overweight; Benign fibromatous neoplasm of skinStart: 05-10-2024 End: 97-10-2848idyoaazcdjBYLKDRParkside [facility]iatric [facility] [place] PPGStart: 70-73-0951Nlxwpodip for general adult medical examination without abnormal findingsChildren[facility] Ambulatory PPGStart: 03-15-2024 End: 38-03-6574Cklbograh Result EncounterCorey Katia DO Work Phone: NOPP External Department UnsolicitedStart: 03-15-2024 End: 86-21-4732Rmgkuriww Result EncounterCorey Katia DO Work Phone: NOPN External Department UnsolicitedStart: 01-11-2024 End: 19-62-1277Rnumer flowsheetCorey Katia DO Work Phone: NOTE BCP OBStart: 01-11-2024 End: 70-95-8878Ygofmc flowsheetCorey Katia DO Work Phone: noms BCP OBStart: 01-11-2024 End: 80-29-7387Xqqpmvagd Result EncounterCorey Katia DO Work Phone: noms External Department UnsolicitedStart: 01-11-2024 End: 68-52-3563wzjfpaaiwcEOBLO FAZIONot AvailableStart: 01-11-2024 End: 27-46-1581Psasche encounter procedureCorey Katia DO Work Phone: noms HealthcareStart: 01-11-2024 End: 76-44-6682Nmhtfqjb preventive med est patient 40-64yrsCorey Katia DO Work Phone: n[facility] OBComment on above:Well woman exam with routine gynecological exam; Breast cancer screening by mammogramStart: 06-30-2022 End: 41-36-9824igygigvzcqPIT RAMEY .Facility:T5Pmssu: 12-09-2016 End: 81-24-5632YgwwatthypUGRX HARRISONFacilcleveland clinic eucl[facility] HospitalStart: 11-26-2016 End: 46-73-9734McqvihafnfPAFZRiverview Regional Medical Center:[facility] Procedures DateProcedureProcedure DetailPerforming ClinicianStart: 62-87-4904Swizv depression screening assessmentDennis Furlong DO Work Phone: Start: 66-01-3647PE TOMOSYNTHESIS SCREENING BICorey Katia DO Work Phone: Start: 55-90-1422BqvfvgqjmbrGmaprir Grillis DO Work Phone: Start: 85-48-5082WJP,APTIMA HPV,AGE GDLNCorey Katia DO Work Phone: Start: 84-34-3120Vqssjmwkpgt observation [Identifier] in Cervix by Cyto stainCorey Katia DO Work Phone: Start: 43-44-4105Iryzdzyvecd observation [Identifier] in Cervix by Cyto stainCorey Katia DO Work Phone: start: 80-82-1220HynaawkfoqcMctxf Katia DO Work Phone: Plan of Treatment DateCare ActivityDetailAuthorStart: 20-73-5958Lodmugjtq for malignant neoplasm of cervixNOMS HealthcareStart: 79-30-9898Zesecujpd for malignant neoplasm of colonColon Cancer Screening 3 Year CologuardAultman Hospital SystemStart: 50-53-7984Seqjaenwk for malignant neoplasm of cervixNOMS HealthcareStart: 54-90-3784Wublmisga for malignant neoplasm of cervixPap SmearAultman Hospital SystemStart: 78-43-9384Vwbvp BMI ScreeningAdult BMI ScreeningFormerly [facility], later [facility] CAretart: 76-23-2651Upxzskt ScreeningTobacco ScreeningMercer County Community Hospital Start: 78-79-1744Fzjzi BMI ScreeningAdult BMI ScreeningMercer County Community Hospital Start: 67-36-0735Upvdkfihwt ScreeningDepression ScreeningMercer County Community Hospital Start: 15-28-5070Renbzes ScreeningTobacco ScreeningAultman Hospital SystemStart: 16-81-1883Vnzudkgpz for malignant neoplasm of breastMammogramFormerly [facility], later [facility] CAretart: 01-17-2025 End: 88-39-1970Efuzixl encounter procedureNOMS BCP OBStart: 63-32-4189INXZO-19 Vaccine ( season)COVID-19 Vaccine ( season)[facility] SystemStart: 33-68-4490Gjxyygmoq vaccinationAultman Hospital SystemStart: 48-13-4725Gxepoxmpl for malignant neoplasm of colonNOMS HealthcareStart: 05-18-2024 End: 97-74-9199KN Abdomen limitedUltrasound abdomen limited Imaging Routine Calculus of gallbladder with chronic cholecystitis without obstruction Epigastric pain Expected: 05/18/2024, Expires: 05/18/2025[facility] [employer] Work Phone: Comment on above:Expected: 05/18/2024, Expires: 05/18/2025Start: 01-11-2024 End: 33-16-7354VE Breast - bilateral ScreeningBilateral screening mammogram Imaging Routine Breast cancer screening by mammogram Expected: 01/11/2024 (Approximate), Expires: 03/12/2025[facility] Work Phone: comment on above:Expected: 01/11/2024 (Approximate), Expires: 03/12/2025Start: 03-57-2189Jiuyvrvgr vaccinationInfluenza Vaccine (#1) [facility] HealthcareStart: 79-51-9554Luulydblf for malignant neoplasm of breast MammogramKANE COUNTY [facility] HealthcareStart: 24-90-6912DPyU,Tdap and Td Vaccines (2 - Td or Tdap)DTaP,Tdap and Td Vaccines (2 - Td or Tdap)[facility] Emulate SystemStart: 13-68-5720Fkoxxslgt for malignant neoplasm of colonColon Cancer Screening 3 Year CologuardProPomerene HospitalEons SystemStart: 43-39-2092Iankx BMI Follow Up PlanAdult BMI Follow Up PlanPremier Health [facility] Emulate SystemStart: 92-67-3126Lnhvauzfh for malignant neoplasm of colonNOMS HealthcareCologuard Non-ProMedicaCologuard Non- [facility] Lab Routine Screen for colon cancer Ordered: 05/10/2024[facility] HospitalIridian TechnologiesComment on above:Ordered: 05/10/2024 End: 77-11-3428ZrykxtafzCeoatiqrb Lab Routine Perimenopausal 1 Occurrences starting 05/10/2024 until 05/10/2025[facility] Work Phone: Comment on above:1 Occurrences starting 05/10/2024 until 05/10/2025 End: 96-40-6965LBHMFE Lab Routine Perimenopausal 1 Occurrences starting 05/10/2024 until 05/10/2025[facility] HospitalE[facility] HospitalComment on above:1 Occurrences starting 05/10/2024 until 05/10/2025 End: 46-56-4676Jqkvainyran hormoneLuteinizing hormone Lab Routine Perimenopausal 1 Occurrences starting 05/10/2024 until 05/10/2025[facility] Comment on above:1 Occurrences starting 05/10/2024 until 05/10/2025THIN PREP TIS PAP AND HR HPV DNATHIN PREP TIS PAP AND HR HPV DNA Pathology and Cytology Routine Well woman exam with routine gynecological exam Ordered: 01/11/2024[facility] HealthcareComment on above:Ordered: 01/11/2024 Immunizations Immunization DateImmunizationNotesCare QniafdxoXocymlhm40-74-4478Frvdjyizl B vaccine (recombinant), CpG adjuvantedDennis Furlong DO Work Phone: [facility] HospitalPyzczc37-32-6272Ywjlwwqdt B vaccine (recombinant), CpG adjuvantedDennis Furlong DO Work Phone: [facility] HospitalVmdirb50-33-9576jzrtbvnry, seasonal, injectable, preservative freeDennis Furlong DO Work Phone: [facility] HospitalDoadmt20-33-7394nwudcayag virus vaccine, unspecified formulationCorey Katia DO Work Phone: [facility] HealthcareBgukwtmzbi93-21-1594eovvtgens, injectable, quadrivalent, preservative freeDennis Furlong DO Work Phone: [facility] HospitalLemdcb12-34-5120Hknldmvtb, injectable, Madin Benham Canine Kidney, preservative free, quadrivalentDennis Furlong DO Work Phone: [facility] HospitalXwrqea75-77-0611culxyixqa, seasonal, injectableDennis Furlong DO Work Phone: [facility] HospitalHgupfc37-39-4210csnefayvi, injectable, quadrivalent, contains preservativeDennis Furlong DO Work Phone: [facility] HospitalNirtuw25-73-7123kytgqpezb, injectable, quadrivalent, preservative freeDennis Furlong DO Work Phone: [facility] HospitalDntiyj33-27-4526bvbgvlhro, injectable, quadrivalent, contains preservativeDennis Furlong DO Work Phone: [facility] HospitalSrcwad81-64-2359flnnnyelc, injectable, quadrivalent, contains preservativeDennis Furlong DO Work Phone: [facility]09-26-2013tetanus toxoid, reduced diphtheria toxoid, and acellular pertussis vaccine, Ric Reynolds DO Work Phone: [facility] Payers DatePayer CategoryPayerPolicy [id number] Health InsuranceHEALTHSCOPE [id number] Care Other (unspecified)[employer]EF[employer]/[place] [id number] .[id number] [id number] 2..[id number] 2..[id number] [id number] Social History DateTypeDetailFacilityTobacco smoking status NHISTobacco smoking consumption unknownK[facility] SSD HealthcareStart: 55-85-2144Gmm assigned at birthNot on fileMissouri Southern HealthcareStart: 05-28-2022 End: 27-62-7753Dyudqc identityNot on [facility] CenterStart: 04-12-7789Yhyeidj smoking status NHISNever smoked tobaccoAultman Hospital SystemStart: 05-28-2022 Tobacco use and exposureSmokeless tobacco non-userAultman Hospital SystemStart: 05-10-2024 End: 01-11-9134Nelzfgpog beverage intakeCurrent drinker of alcohol (finding) [facility] SystemStart: 05-28-2022 End: 80-88-1718Ufjcmztmp beverage intakeMercer County Community HospitalHas the [place] gas, oil, or water SoundOut threatened to shut off services in your home in past 12MoNoProVaughan Regional Medical Center Health SystemDo you belong to any clubs or organizations such as yazidism groups, unions, fraternal or athletic groups, or school groups?Yes [facility] Health SystemAre you now , , , , never or living with a partner?DivorcedProVaughan Regional Medical Center Health SystemHow often to you have a drink containing alcohol?2-4 times a monthProVaughan Regional Medical Center Health SystemHow many standard drinks containing alcohol do you have on a typical day?1 or 2 ProMhill hospital of sum[facility] Health SystemHow often do you have 6 or more drinks on 1 occasion? NeverProVaughan Regional Medical Center Health SystemHow hard is it for you to pay for the very basics like food, housing, medical care, and heatingNot very hardAultman Hospital SystemStart: 77-92-6054Zepepxulmv depression screening affwcsoqjo5GhfWlhwke Health SystemDo you feel stress - tense, restless, nervous, or anxious, or unable to sleep at night because yourmind is troubled all the time - these days [OSQ]To some extentFormerly [facility], later [facility] CAretart: 12-60-3053Gmz assigned at FemaleFormerly [facility], later [facility] CAretart: 32-49-6356JrgPzzlct (finding)[facility] CAretart: 92-70-2009Iyoufv identityIdentifies as female gender (finding)[facility] CAretart: 58-32-4488Kspkng orientationHeterosexual (finding)[facility] Clinical Notes 01-11-2024 to 08-05-2024 Note Date & OszxFgmaJrsryexa58-22-4103 Miscellaneous Notes* Telephone Encounter - Princess Parr CMA - 08/05/2024 1:53 PM EDT Attempted to contact patient again regarding Ultrasound that had been ordered by Dr. Lizarraga on 05/18/24. Patient verbally stated she will not be completing this test. Will no longer attempt to contact patient regarding testing. documented in this encounterMercer County Community Hospital05-30-2025 Telephone encounter Note* Telephone Encounter - Princess Parr CMA - 08/05/2024 1:53 PM EDT Attempted to contact patient again regarding Ultrasound that had been ordered by Dr. Lizarraga on 05/18/24. Patient verbally stated she will not be completing this test. Will no longer attempt to contact patient regarding testing. [facility]04-17-2025 Miscellaneous Notes* Telephone Encounter - Shawnee Coulter CMA - 06/23/2024 9:03 AM EDT Care Coordination Outreach performed to coordinate overdue appointments, testing, and/or follow-up care: Yes Audit/Outreach Date: June 23, 2024 Reason: Colorectal Cancer Screening Method: Telephone and MyChart Outreach Attempt: First Outcome: Left Message and Letter Sent Next PCP Appointment: N/A Tests/Referrals Pended: N/A Resources/Education Provided: Additional Comments: Left message for patient to contact care attendant. Patient is overdue with cologuard order. Will send letter to patient. documented in this encounterMercer County Community Hospital04-17-2025 Telephone encounter Note* Telephone Encounter - Shawnee Coulter CMA - 06/23/2024 9:03 AM EDT Care Coordination Outreach performed to coordinate overdue appointments, testing, and/or follow-up care: Yes Audit/Outreach Date: June 23, 2024 Reason: Colorectal Cancer Screening Method: Telephone and MyChart Outreach Attempt: First Outcome: Left Message and Letter Sent Next PCP Appointment: N/A Tests/Referrals Pended: N/A Resources/Education Provided: Additional Comments: Left message for patient to contact care attendant. Patient is overdue with cologuard order. Will send letter to patient. [facility]04-17-2025 Miscellaneous Notes* Telephone Encounter - Shawnee Coulter CMA - 06/23/2024 8:48 AM EDT Care Coordination Outreach performed to coordinate overdue appointments, testing, and/or follow-up care: Yes Audit/Outreach Date: June 23, 2024 Reason: Colorectal Cancer Screening Method: Telephone and MyChart Outreach Attempt: First Outcome: Left Message and Letter Sent Next PCP Appointment: N/A Tests/Referrals Pended: N/A Resources/Education Provided: Additional Comments: Left message for patient to contact care attendant. Patient is overdue with cologuard order. Will send letter to patient. documented in this encounterMercer County Community Hospital04-17-2025 Telephone encounter Note* Telephone Encounter - Shawnee Coulter CMA - 06/23/2024 8:48 AM EDT Care Coordination Outreach performed to coordinate overdue appointments, testing, and/or follow-up care: Yes Audit/Outreach Date: June 23, 2024 Reason: Colorectal Cancer Screening Method: Telephone and MyChart Outreach Attempt: First Outcome: Left Message and Letter Sent Next PCP Appointment: N/A Tests/Referrals Pended: N/A Resources/Education Provided: Additional Comments: Left message for patient to contact care attendant. Patient is overdue with cologuard order. Will send letter to patient. [facility]03-12-2025 History of Present illness Narrative* Leeann Lizarraga, - 05/18/2024 1:15 PM EDT Images from the original note were not included. [facility] PHYSICIANS GENERAL SURGERY [address] [id number] CONSULT NOTE CHIEF COMPLAINT Chief Complaint Patient presents with Cholelithiasis GALLBLADDER, WAS IN [facility] ED 05/15/2024, SELF REFERRED Halina Jackson is a 48 y.o. female who presents after going to the [facility] Emergency room on 05/15/2024 due to a gallbladder attack. She had eggs and rice with all of the oil on it that morning and experienced epigastric abdominal pain with indigestion and pressure and right upper quadrant pain but without nausea or vomiting. She did have cold sweats and rated the pain as an 8/10. She was given morphine in the emergency room and felt better and sent home. She was on her hands and knees due to the pain. She denies any history of ulcer disease or gastritis and does not use nonsteroidal anti-inflammatory drugs regularly and only drinks 1 cup of caffeine daily she does not smoke. She had seen my associate Dr. Wallace in February of 2023 for epigastric abdominal pain; she was offered observation versus cholecystectomy and decide not to have that done. She works at [employer] in the [employer] room. Patient was recently seen in the [facility] Emergency room (May 18 2023) for pain and had a CT scan which showed a gallstone without acute cholecystitis. She had elevated white blood countof 03634 and has a chronically elevated white blood count. MEDICATION Current Outpatient Medications: dicyclomine (BENTYL) 20 mg tablet, Take 1 tablet (20 mg total) by mouth 3 (three) times a day as needed., Disp: , Rfl: levonorgestreL (MIRENA) 21 mcg/24hr (up to 8 yrs) 52 mg IUD, as directed Intrauterine, Disp: , Rfl: ondansetron ODT (ZOFRAN ODT) 4 mg disintegrating tablet, Dissolve 1 tablet (4 mg total) on tongue as needed., Disp: , Rfl: ALLERGY No Known Allergies MEDICAL HISTORY Past Medical History: Diagnosis Date Cholelithiasis Depression 05/28/22 Mild seasonal depression SURGICAL HISTORY Past Surgical History: Procedure Laterality Date CERVIX SURGERY ablation SOCIAL HISTORY Social History Socioeconomic History Marital status: Spouse name: Not on file Number of children: Not on file Years of education: Not on file Highest education level: Not on file Occupational History Not on file Tobacco Use Smoking status: Never Smokeless tobacco: Never Vaping Use Vaping status: Never Used Substance and Sexual Activity Alcohol use: Yes Alcohol/week: 1.0 standard drink of alcohol Types: 1 Cans of beer per week Drug use: Never Sexual activity: Yes Partners: Female, Male control/protection: Condom, I.U.D. Other Topics Concern Not on file Social History Narrative Not on file Social Drivers of Health Financial Resource Strain: Low Risk (05/25/2022) Overall Financial Resource Strain (CARDIA) Difficulty of Paying Living Expenses: Not very hard Food Insecurity: No Food Insecurity (05/10/2024) Hunger Screening Food Insecurity - Worry: Never True Food Insecurity - Inability: Never True Transportation Needs: No Transportation Needs (05/25/2022) PRAPARE - Transportation Lack of Transportation (Medical): No Lack of Transportation (Non-Medical): No Physical Activity: Insufficiently Active (05/10/2024) Exercise Vital Sign Days of Exercise per Week: 7 days Minutes of Exercise per Session: 20 min Stress: Stress Concern Present (05/28/2022) Citizen Of [place] [employer] [employer] Occupational Health - Occupational Stress Questionnaire Feeling of Stress : To some extent Social Connections: Moderately Isolated (05/28/2022) Social Connection and Isolation Panel [NHANES] Frequency of Communication with Friends and Family: Twice a week Frequency of Social Gatherings with Friends and Family: Once a week Attends Mandaen Services: Never Active Member of Clubs or Organizations: Yes Attends Club or Organization Meetings: 1 to 4 times per year Marital Status: Interpersonal Safety: Not At Risk (05/28/2022) Humiliation, Afraid, Rape, and Kick questionnaire Fear of Current or Ex-Partner: No Emotionally Abused: No Physically Abused: No Sexually Abused: No Housing Instability: Low Risk (05/25/2022) Housing Instability Housing Instability: No FAMILY HISTORY Family History Problem Relation Age of Onset Diabetes Mother Managed with diet Hypertension Mother Stomach cancer Mother 76 type unknown; had colonoscopy a year earlier; No Known Problems Father Early Sister Drug interactions Breast cancer Neg Hx REVIEW OF SYSTEMS: Constitutional: Denies fevers, denies recent illnesses. Rest review of systems negative except as above. PHYSICAL EXAM Constitutional: She is oriented to person, place, and time. Vital signs are normal. She appears well-developed and well-nourished. HEENT: Head: Normocephalic and atraumatic. Eyes: Conjunctivae, EOM and lids are normal. Neck: Trachea normal. Neck supple. No thyroid mass present. Cardiovascular: Normal rate and regular rhythm. Pulmonary/Chest: Effort normal and breath sounds normal. Abdominal: Soft. Normal appearance. She exhibits no distension and no mass. There is no hepatosplenomegaly or splenomegaly. There is negative Crabtree's sign. No hernia. Neurological: She is alert and oriented to person, place, and time. Skin: Skin is warm, dry and intact. Psychiatric: She has a normal mood and affect. Her speech is normal and behavior is normal. Cognition and memory are normal. IMPRESSION 1. Chronic cholecystitis with cholelithiasis by CT scan with gallstones 2. History of depression ASSESSMENT & PLAN 1. Gallbladder ultrasound to further evaluate gallbladder 2. Patient was offered robotic cholecystectomy with possible open cholecystectomy. Risks benefits alternatives to surgery could include infection, bleeding, bile duct injury, blood clots to legs or lungs pneumonia heart attack stroke or . She wished to have the ultrasound 1st prior to scheduling any surgery. She was warned to stay away from any fatty foods or fried foods. She stated that sheloves fried chicken. She understands consequences of not having the gallbladder out could result in pancreatitis or choledocholithiasis and jaundice or gangrenous cholecystitis. Ultrasound was ordered. Evaluation included: Preparing to see the patient (e.g., review of tests) Obtaining and/or reviewing separately obtained history Performing a medically appropriate examination and/or evaluation Counseling and educating the patient/family/caregiver Referring and communicating with other health hiv/aids care nurse Calculus of gallbladder with chronic cholecystitis without obstruction [K80.10] Leeann Lizarraga DO This note was created with the assistance of a speech recognition program. While intending to generate a timely document that accurately reflects the content of the visit, no guarantee can be provided that every grammatical or spelling mistake has been or will be identified or corrected. Thank you for your understanding. documented in this encounterMercer County Community Hospital03-12-2025 Miscellaneous Notes* Addendum Note - Leeann Lizarraga DO - 05/18/2024 1:15 PM EDTAddended by: LEEANN LIZARRAGA on: 05/18/2024 01:54 PM Modules accepted: Orders documented in this encounterMercer County Community Hospital03-12-2025 Note* Addendum Note - Leeann Lizarraga DO - 05/18/2024 1:15 PM EDTAddended by: LEEANN LIZARRAGA on: 05/18/2024 01:54 PM Modules accepted: Orders [facility]03-04-2025 History of Present illness Narrative* Diego Reynolds, - 05/10/2024 3:30 PM EST Subjective Patient ID: Halina Jackson is a 48 y.o. female. Halina Jackson is a 48 y.o. female presenting today for annual wellness visit. She is interestedin pursuing hormone replacement therapy or other medication which may help her symptoms. She reports her periods have decreased to once every few months with only mild spotting beginning a few monthsago. She does have some associated cramping and discomfort with intercourse. She report increased irritability for the past few months. She denies vaginal discomfort, vaginal dryness, and hot flashesat this time. She she does have a history of superficial thrombophlebitis 10 years ago that was treated with removal of the vein in the left leg. She denies hx of HTN, smoking, migraine with aura. She doesn't have hot flashes or vaginal dryness. She does see SAFETY INTERN and last saw him in January but [...] past medical history, past social history, past surgicalhistory, problem list, and medication reconciliation was completed including current medication andpost discharge medication. Review of Systems Constitutional: Positive [...] abdominal distention, blood in stool, constipation, diarrhea, nauseaand vomiting. Endocrine: Negative for polydipsia and polyuria. Genitourinary: Positive for menstrual problem (Decreased frequency of periods). Negative for dyspareunia, hematuria and vaginal pain. Skin: Small growth on right lower leg, asymptomatic Neurological: Negative for dizziness and light-headedness. Psychiatric/Behavioral: Positive for agitation and decreased concentration. Negative for confusion,dysphoric mood, self-injury, sleep disturbance and suicidal ideas. [...] adult exam Health maintenance discussed. She sees SAFETY INTERN for female issues. Perimenopausal - Estradiol; Future [...] MS3 05/10/24 3:27 PM documented [facility] [id number] History of Present illness Narrative* Radha Patel - 01/11/2024 1:40 PM EST Reason for Appointment: Patient ID: Halina Jackson [...] nursing note reviewed. Exam conducted with a production inspector present. Vitals: Estimated body mass index is [...] of: Yu Montalvo DO documented in this encounterNO[facility]Evaluation [facility]* Diagnosis Well woman exam with routine gynecological exam Routine gynecological examination Breast cancer screening by mammogram [facility] Diagnosis Well adult exam- Primary Routine general medical examination at a health care facility Perimenopausal Symptomatic menopausal or female climacteric states Screen for colon cancer Special screening for malignant neoplasms, colon Mild recurrent major depression (CMS-HCC) Major depressive disorder, recurrent episode, mild Overweight Benign fibromatous neoplasm of skin [facility] Diagnosis Calculus of gallbladder with chronic cholecystitis without obstruction- Primary Epigastric pain Abdominal pain, epigastric documented in this encounter [facility]InstructionsNot on filedocumented in this encounter [facility]ructionsNot on filedocumented in this encounter [facility]Not on filedocumented in this encounter [facility]InstructionsNot on filedocumented in this encounter [facility]ructionsNot on filedocumented in this encounter [facility] Summary Purpose Family History No Family History [...] section and content) DATE CREATED AUTHOR 09/01/2017 [facility] DATE CREATED AUTHOR AUTHOR'S ORGANIZ ATION 04/09/2021 [facility] DATE CREATED AUTHOR AUTHOR'S ORGANIZ ATION 07/09/[address] [facility] DATE CREATED AUTHOR AUTHOR'S ORGANIZ ATION 01/12/2024 [facility] EPIC DATE CREATED AUTHOR AUTHOR'S ORGANIZ ATION 05/12/2024 [facility] DATE CREATED AUTHOR AUTHOR'S ORGANIZ ATION 05/23/2024 [facility] Care Teams (unrecognized sec tion and content) Team MemberRelationshipSpecialtyStart DateEnd Date Diego Reynolds MD [address], [place] [address] PCP - GeneralFamily Xbllvdpq22/4/24Team MemberRelationshipSpecialtyStart DateEnd Date Diego Reynolds MD [address], [place] [address] PCP - GeneralFamily Dmiobpys31/4/24Team MemberRelationshipSpecialtyStart DateEnd Date Diego Reynolds DO [address], [place] [address] PCP - GeneralFamily Medicine05/11/17Team MemberRelationshipSpecialtyStart DateEnd Date Diego Reynolds DO [address], [place] [address] PCP - [facility]05/11/17Team MemberRelationshipSpecialtyStart DateEnd Date Diego Reynolds DO [address], [place] [address] PCP - [facility]05/11/17Team MemberRelationshipSpecialtyStart DateEnd Date Diego Reynolds DO [address] [place] [address] [address] PCP - [facility]05/11/17Team MemberRelationshipSpecialtyStart DateEnd Date Diego Reynolds MD [facility] - [facility]/11/24Team MemberRelationshipSpecialtyStart DateEnd Date Diego Reynolds DO [address], [place] [address] PCP - [facility]05/11/17 Reason for Visit (unrecogniz ed section and content) ReasonCommentsWell Women VisitReasonCommentsAnnual ExamReasonComments CholelithiasisGALLBLADDER, [facility]/15[facility], SELF REFERREDReasonOnset Date CommentsPreventative Gomwenzyr23/17/2025 FOR RECORDS PERTAINING TO PATIENTS WHO ARE [...] BE BASED ON THE PRIMARY CLINICAL RECORDS. [facility] [employer] [facility]. provides no warranty or guarantee of the accuracy or completeness of information in this document.
--- OUTSIDE RECORDS SUMMARY | 2025-01-17 19:25 | XMS_ITS | Encounter Summary ---
Author Organization [facility] Address [address] [place] [address] Care Team Providers Care Flight Engineer Manager Name Role Phone Diego Reynolds MD Primary Care Provider Encounter Details DateTypeDepartmentCare Team (Latest Contact Info)Hxpvvgblbli94/11/2025amboo flowsheet YUSUF NIETO [address] [place] [address] [place] [address] Jerry Montalvo DO [address] [place] [id number] Social History Tobacco UseTypesPacks/DayYears UsedDateSmoking Tobacco: Never Assessed CommentsNoSex and Gender InformationValueDate RecordedSex Assigned at BirthNot on fileLegal GlhMqnwuq08/15/2023 11:47 PM EDTGender IdentityNot on fileSexual OrientationNot on filedocumented as of this encounter Plan of Treatment DateTypeDepartmentCare Team (Latest Contact Info)Qazjndwtwpc34/23/2026 4:00 PM ESTProcedure Visit YUSUF NIETO [address] [place] [address] [place] [address] Jerry Montalvo, DO [address] [place] [address] documented as of this encounter Visit Diagnoses Not on filedocumented in this encounter Care Teams Team MemberRelationshipSpecialtyStart DateEnd Date Diego Reynolds MD PCP - GeneralFamily Tjsdxmly54/4/24documented as of this encounter
--- OUTSIDE RECORDS SUMMARY | 2025-01-17 19:25 | XMS_ITS | Clinical Summary ---
Author Organization [employer] Address [id number] [address] [place] [address] Care Team Providers Care Cytometry Technologist Name Role Phone Diego Reynolds DO Primary Care Provider [phone]- [phone] Allergies No known active allergies Medications MedicationSigDispense QuantityRefillsLast FilledStart DateEnd DateStatus levonorgestreL (MIRENA) 21 mcg/24hr (up to 8 yrs) 52 mg IUD as directed IntrauterineActive ondansetron ODT (ZOFRAN ODT) 4 mg disintegrating tablet Dissolve 1 tablet (4 mg total) on tongue as needed.5Active dicyclomine (BENTYL) 20 mg tablet Take 1 tablet (20 mg total) by mouth 3 (three) times a day as needed.05/16/2024 Active Active Problems ProblemNoted DateDiagnosed DateChronic pain of both knees05/28/2022Mild recurrent major vjbsexrnxd82/22/2023 Encounters DateTypeDepartmentCare GftpJkhjqkwwmxt48/02/2025Results Follow-Up [facility] [address] [place] [id number] Diego Reynolds, DO Cologuard Non-ProMedicafrom Last 3 Months Immunizations ImmunizationAdministration DatesNext DueHep B, Iunnchyhkh50/08/2024,12/18/2023 Influenza (IM) Preservative Free12/18/2023Influenza, Im Trivalent Preservative 12/12/2020Influenza, Injectable, Mdck, Preservative Free, Quad12/06/2021 Influenza, Injectable, Udodsfsocvtc72/28/2020,12/22/2018,12/29/2017Influenza, Injectable, quadrivalent (PF)01/28/2023,12/07/2019Tdap12/02/2012 Family History Medical HistoryRelationNameCommentsNo Known ProblemsFatherDiabetesMotherGraciela MohammedManaged with dietHypertensionMotherGraciela MohammedStomach cancerMother Rola [facility] City[facility]type unknown; had colonoscopy a year earlier;Early deathSister Jacqui Jesrug interactionsBreast cancerNeg HxRelationNameStatusComments FatherDeceasedMotherGraciann [facility] [place] CityammedDeceasedSisterSara Leatha Social History Tobacco UseTypesPacks/DayYears UsedDateSmoking Tobacco: NeverSmokeless Tobacco: Never Tobacco Cessation:Counseling Given: Not Answered Alcohol UseStandard Drinks/WeekCommentsYes1 (1 standard drink = 0.6 oz pure alcohol)[facility] UtilitiesAnswerDate RecordedIn the past 12 months has the [employer], gas, oil, or water [employer] threatened to shut off services in your home?No 05/10/2024Social Connection and Isolation PanelAnswerDate RecordedIn a typical week, how many times do you talk on the phone with family, friends, or neighbors?Twice a week05/28/2022How often do you get together with friends or relatives?Once a week05/28/2022How often do you attend yarsanism or nondenominational services?Never05/28/2022o you belong to any clubs or organizations such as yarsanism groups, unions, fraternal or athletic groups, or school groups?Yes 05/28/2022How often do you attend meetings of the clubs or organizations you belong to?1 to 4 times per year05/28/2022re you , , , , never , or living with a partner?Vwngimle97/22/2023UDIT-C AnswerDate RecordedQ1: How often do you have a drink containing alcohol?2-4 times a month05/28/2022Q2: How many drinks containing alcohol do you have on a typical day when you are drinking?1 or Q3: How often do you have six or more drinks on one occasion?Never05/28/2022Overall Financial Resource Strain (CARDIA)AnswerDate RecordedHow hard is it for you to pay for the very basics like food, housing, medical care, and heating?Not very hard05/25/2022HQ-2Answer Date RecordedTotal Ucybk48105/10/2024[facility] of Occupational Health - Occupational Stress QuestionnaireAnswerDate RecordedDo you feel stress - tense, restless, nervous, or anxious, or unable to sleep at night because yourmind is troubled all the time - these days?To some teuflg6005/28/2022Exercise Vital Sign AnswerDate RecordedOn average, how many days per week do you engage in moderate to strenuous exercise (like a brisk walk)?7 days05/10/2024On average, how many minutes do you engage in exercise at this level?20 min05/10/2024PRAPARE - TransportationAnswerDate RecordedIn the past 12 months, has lack of transportation kept you from medical appointments or from getting medications?No 05/25/2022In the past 12 months, has lack of transportation kept you from meetings, work, or from getting things needed for daily living?No05/25/2022 Housing InstabilityAnswerDate RecordedAre you worried or concerned that in the next two months you may not have stable housing that you own, rent or stay in as a part of a household?No05/25/2022hildcareAnswerDate RecordedDo problems getting child care counselor make it difficult for you to work or study?No05/28/2022 EmploymentAnswerDate RecordedDo you need help finding a local career center and/or a training program?No05/28/2022Hunger ScreeningAnswerDate RecordedWithin the past 12 months we worried whether our food would run out before we got money to buy more.Never True05/10/2024Within the past 12 months the food we bought just didn't last and we didn't have money to get more.Never True05/10/2024 Purpose - LifeAnswerDate RecordedI have a purpose and direction in my life.Agree 3CommentsNoSex and Gender InformationValueDate RecordedSex Assigned at YtekaCxyqgw84/30/2019 6:45 AM EDTLegal RgoPhhboh23/06/2015 11:37 AM EDTGender HdacjofiZgjrgf49/30/2019 6:45 AM EDTSexual OrientationStraight 08/05/2018 6:45 AM EDT Last Filed Vital Signs Vital SignReadingTime TakenCommentsBlood Ccvuolxp91/58005/10/2024 3:23 PM EST Nqhxu535805/10/2024 3:23 PM CDUBzghzquxvsg83.8 ??C (98.2 ??F)05/10/2024 3:23 PM ESTRespiratory Hrgf660605/10/2024 3:23 PM ESTOxygen Qhmkugtlel84%05/10/2024 3:23 PM ESTInhaled Oxygen Concentration--Huveox06.5 kg (162 lb)05/18/2024 1:18 PM EDT Evxaki466.6 cm (5' 6 )05/18/2024 1:18 PM EDTBody Mass Index26.15005/18/2024 1:18 PM EDT Plan of Treatment Health MaintenanceDue DateLast DoneCommentsAdult BMI Follow Up Plan10/03/1993 DTaP,Tdap and Td Vaccines (2 - Td or Tdap)/COVID-19 Vaccine ( season)/01/2024, 01/28/2023, 12/06/2021, Additional history existsInfluenza Wwaojgz90/01/2024, 01/28/2023, 12/06/2021, Additional history vymqezSefhdkgoc60/07/202601/09/2024, 06/20/2022, 05/03/2021, Additional history existsDepression Tofuezcer22dult BMI Zgfzzlvrl85Tobacco Ukjcvxyxo77Pap Smear /06/2023, 05/07/2021olon Cancer Screening 3 Year Cologuard /04/2024, 11/03/2024 Medical Devices Not on file Procedures Procedure NamePriorityDate/TimeAssociated DiagnosisCommentsCOLOGUARD NON-TQFLVBFIIVvrzcdf72/28/2025 5:32 AM EDT Screen for colon cancer HM UBYWZMRPMLFLswklsa82/07/2025 4:32 PM ESTfrom Last 3 Months or Most Recently Relevant to Health Maintenance Results * Cologuard Non-[facility] (11/03/2024 5:32 AM EDT)ComponentValueRef RangeTest MethodAnalysis TimePerformed AtPathologist SignatureEXTERNAL COLOGUARDNegative Ixucgipp33/02/2025 5:01 AM EDTEXHyperpia (CLIA #:[id number]) Comment: The Cologuard (TM) test was performed on this specimen. NEGATIVE TEST RESULT. A negative Cologuard result indicates a low likelihood that a colorectal cancer (CRC) or advanced adenoma (adenomatous polyps with more advanced pre-malignant features) is present. The chance that a person with a negative Cologuard test has a colorectal cancer is less than 1 in 1500 (negative predictive value >99.9%) or has an advanced adenoma is less than 5.3% (negative predictive value 94.7%). These data are based on a prospective cross-sectional study of 10,000 individuals at average risk for colorectal cancer who were screened with both Cologuard and colonoscopy. (Fanny Grajeda et al, N Engl J Med 2014;370(14):4290-8339) The normal value (reference range) for this assay is negative. COLOGUARD RE-SCREENING RECOMMENDATION: Periodic colorectal cancer screening is an important part ofpreventive healthcare for asymptomatic individuals at average risk for colorectal cancer. Followinga negative Cologuard result, the [place] [employer] Society and U.S. Multi-Society Task Force screening guidelines recommend a Cologuard re-screening interval of 3 years. References: [place] [employer] Guideline for Colorectal Cancer Screening: https://www.cancer.or g/cancer/mqvav-gvbghr-rxcscx/vhosrobsf-rpldrodfk-xmlxdcf/acs-recommendations.htm gt; Jorge SANON, Kenny VICKERS, Ila MURPHY, Colorectal Cancer Screening: Recommendations for Physicians and Patients from the U.S. Multi-Society Task Force on Colorectal Cancer Screening , Am J Gastroenterology 2017; 112:5527-4455. TEST DESCRIPTION: Composite algorithmic analysis of stool DNA-biomarkers with hemoglobin immunoassay. ?? Quantitative values of individual biomarkers are not reportable and are not associated with individual biomarker result reference ranges. Cologuard is intended for colorectal cancer screening ofadults of either sex, 45 years or older, who are at average-risk for colorectal cancer (CRC). Cologuard has been approved for use by the U.S. FDA. The performance of Cologuard was established in a cross sectional study of average-risk adults aged 50-84. Cologuard performance in patients ages 45 to 49 years was estimated by sub-group analysis of near-age groups. Colonoscopies performed for a positive result may find as the most clinically significant lesion: colorectal cancer [4.0%], advanced adenoma (including sessile serrated polyps greater than or equal to 1cm diameter) [20%] or non- advanced adenoma [31%]; or no colorectal neoplasia [45%]. These estimates are derived from a prospective cross-sectional screening study of 10,000 individuals at average risk for colorectal cancer who were screened with both Cologuard and colonoscopy. (Fanny Fowler. et al, N Engl J Med 2014;370(14):7767-4124.) Cologuard may produce a false negative or false positive result (no colorectal cancer or precancerous polyp present at colonoscopy follow up). A negative Cologuard test result does not guarantee the absence of CRC or advanced adenoma (pre-cancer). The current Cologuard screening interval is every 3 years. ([place] [employer] and U.S. Multi-Society Task Force). Cologuard performance data in a 10,000 patient pivotal study using colonoscopy as the reference method can be accessed at the following location: www.AgBiome/results. Additional description of the Cologuard test process, warnings and precautions can be found at www.REGISTRAT-M[employer]ogCorsord.com. Specimen (Source)Anatomical Location / LateralityCollection Method / Volume Collection TimeReceived TimeStool specimen (specimen)Rectum structure / Unknown 11/03/2024 5:32 AM EDT11/04/2024 2:07 PM EDT Narrative Authorizing ProviderResult TypeResult StatusDiego Reynolds DOLAB ORDERABLES Final ResultPerforming OrganizationAddressCity/State/ZIP CodePhone Number [employer] (CLIA #:[id number]) [address] [place] [address], * HM MAMMOGRAPHY (03/15/2024 4:32 PM EST)Anatomical RegionLateralityModality Other Narrative Authorizing ProviderResult TypeResult StatusNot In System Ref ProvHEALTH MAINTENANCEFinal Result from Last 3 Months or Most Recently Relevant to Health Maintenance Insurance [place] [id number] Care Teams Team MemberRelationshipSpecialtyStart DateEnd Date Diego Reynolds DO [address] [facility] [place] [address] PCP - GeneralFamily Medicine05/11/17
--- OUTSIDE RECORDS SUMMARY | 2025-01-17 19:25 | XMS_ITS | Encounter Summary ---
Author Organization [facility] Address [address] [place] [address] Care Team Providers Care Heading Repairer Name Role Phone Diego Reynolds MD Primary Care Provider Encounter Details DateTypeDepartmentCare Team (Latest Contact Info)Jfaarmhupry19/06/2025Travel Social History Tobacco UseTypesPacks/DayYears UsedDateSmoking Tobacco: Never Assessed CommentsNoSex and Gender InformationValueDate RecordedSex Assigned at BirthNot on fileLegal VovOoeycn66/15/2023 11:47 PM EDTGender IdentityNot on fileSexual OrientationNot on filedocumented as of this encounter Plan of Treatment DateTypeDepartmentCare Team (Latest Contact Info)Vjgeyswmwia60/23/2026 4:00 PM ESTProcedure Visit YUSUF NIETO [address] [address] Jerry Montalvo DO [address], [place] [address] documented as of this encounter Visit Diagnoses Not on filedocumented in this encounter Care Teams Team MemberRelationshipSpecialtyStart DateEnd Date Diego Reynolds MD PCP - GeneralFamily Hbstidoy64/4/24documented as of this encounter
--- OUTSIDE RECORDS SUMMARY | 2025-01-17 19:25 | XMS_ITS | Encounter Summary ---
Author Organization [employer] tem Address [id number] [address] [place] [address] Care Team Providers Care Extrusion Die Repair Manager Name Role Phone Diego Reynolds DO Primary Care Provider [phone] [phone] Encounter Details DateTypeDepartmentCare Team (Latest Contact Info)Dsqxqsrnwfv87/02/2025Results Follow-Up [facility] [address] [place] [address] Diego Reynolds DO [address], [facility] [place] [address] Cologuard [facility] Social History Tobacco UseTypesPacks/DayYears UsedDateSmoking Tobacco: NeverSmokeless Tobacco: NeverAlcohol UseStandard Drinks/WeekCommentsYes1 (1 standard drink = 0.6 oz pure alcohol)[facility] UtilitiesAnswerDate RecordedIn the past 12 months has the [employer], gas, oil, or water [employer] threatened to shut off services in your home?No 05/10/2024Social Connection and Isolation PanelAnswerDate RecordedIn a typical week, how many times do you talk on the phone with family, friends, or neighbors?Twice a week05/28/2022How often do you get together with friends or relatives?Once a week05/28/2022How often do you attend pentecostal or yarsani services?Never3Do you belong to any clubs or organizations such as pentecostal groups, unions, fraternal or athletic groups, or school groups?Yes 05/28/2022How often do you attend meetings of the clubs or organizations you belong to?1 to 4 times per year05/28/2022re you , , , , never , or living with a partner?Qallwykq33/22/2023UDIT-C AnswerDate RecordedQ1: How often do you have [...] care, and heating?Not very hard05/25/2022HQ-2Answer Date RecordedTotal Gprxi41805/10/2024[facility] [place] of Occupational Health - Occupational Stress QuestionnaireAnswerDate RecordedDo you feel stress - tense, restless, nervous, or anxious, or unable to sleep at night because yourmind is troubled all the time - these days?To some bezilh8805/28/2022Exercise Vital Sign AnswerDate RecordedOn average, how many [...] part of a household?No05/25/2022hildcareAnswerDate RecordedDo problems getting childhood teacher make it difficult for you to work [...] a purpose and direction in my life.Agree 05/28/2022CommentsNoSex and Gender InformationValueDate RecordedSex Assigned at PbfjvGoehti81/30/2019 6:45 AM EDTLegal GlwQjzpnp90/06/2015 11:37 AM EDTGender CsphiviaVybpky57/30/2019 6:45 AM EDTSexual OrientationStraight 08/05/2018 6:45 AM EDTdocumented as of this encounter Plan of Treatment Not on file documented as of this encounter Visit Diagnoses Not on filedocumented in this encounter Additional Health Concerns AssessmentNoted TimePHQ-9 Depression Total Score: 3:21 PM EST documented as of this encounter Care Teams Team MemberRelationshipSpecialtyStart DateEnd Date Diego Reynolds DO [address] [facility], [place] [address] PCP - GeneralFamily Medicine05/11/17documented as of this encounter
--- OUTSIDE RECORDS SUMMARY | 2025-01-17 19:25 | XMS_ITS | Clinical Summary ---
Author Organization [facility] Healthcare Address [address] [place] [address] Care Team Providers Care Pipe Chipper Name Role Phone Diego Reynolds MD Primary Care Provider Allergies No known active allergies Medications MedicationSigDispense QuantityRefillsLast FilledStart DateEnd DateStatus Levonorgestrel (Mirena, 52 MG,) 20 MCG/DAY intrauterine device as directed IntrauterineActive Estrogens Conjugated (Premarin) 0.625 MG/GM cream Indications:Urinary incontinence, unspecified typeInsert 1 g into the vagina Daily Insert 1/2 applicator at bedtime nightly for 2 weeks then twice a week thereafter 1 g 5Active Encounters DateTypeDepartmentCare QcbsOaguzzrxilj20/11/2025 2:00 PM [place] [address] Jerry Montalvo DO Well woman exam with routine gynecological exam; Encounter for screening mammogram for malignant neoplasm of breast; Urinary incontinence, unspecified type5Bamboo flowsheet [facility] [address] [place] [address] Jerry Montalvo DO 01/12/20253115Pwmckl02/04/2025Travelfrom Last 3 Months Social History Tobacco UseTypesPacks/DayYears UsedDateSmoking Tobacco: Never Assessed CommentsNoSex and Gender InformationValueDate RecordedSex Assigned at BirthNot on fileLegal RotMqvcdd81/15/2023 11:47 PM EDTGender IdentityNot on fileSexual OrientationNot on file Last Filed Vital Signs Vital SignReadingTime TakenCommentsBlood Xhswczvs237/6401/17/2025 2:18 PM EST Pulse--Temperature--Respiratory Rate--Oxygen Saturation--Inhaled Oxygen Concentration--Knclgh63.9 kg (163 lb)01/17/2025 2:18 PM XBAUrvhgu048.1 cm (5' 5 )01/17/2025 2:18 PM ESTBody Mass Index27.12103/19/2024 2:18 PM EST Plan of Treatment DateTypeDepartmentCare Team (Latest Contact Info)Ynruifxgcbm27/23/2026 4:00 PM ESTProcedure Visit [facility] [address] [place] [id number] Jerry Montalvo DO [address] [facility] [address] [place] [address] Health MaintenanceDue DateLast DoneCommentsCT Wvlnlpwuhtjp90/28/1976Colonoscopy 1975FIT1975FOBT1975 7267Mzwmdkbogbaah28/28/1976COVID-19 Vaccine ( season), 02/07/2021, 06/21/2020, Additional history ofnmylXuduyfkbm40/07/878036/09/2024, 06/20/2022, 08/04/2018, Additional history existsColorectal Cancer Zgcfzqflr27/28/2028FIT-DNA8011/03/2024, 07/08/2021ervical Cancer Hntuvluhe43/04/2029HPV/Hlmozp1701/10/2029Pap Smear /06/2023, 06/30/2022Influenza KzuybolSamugsoyq08/21/2025, 12/18/2023, 01/28/2023, Additional history existsPneumococcal Vaccine: Pediatrics (0 to 5 Years) and At-Risk Patients (6 to 64 Years)Aged OutNo longer eligible based on patient's age to complete this topic Procedures Procedure NamePriorityDate/TimeAssociated DiagnosisCommentsMM TOMOSYNTHESIS SCREENING BI03/15/2024 4:55 PM EST PAP SGSXSEmizyax38/04/2024 12:00 AM ESTfrom Last 3 Months or Most Recently Relevant to Health Maintenance Results * MM TOMOSYNTHESIS SCREENING BI (03/15/2024 4:55 PM EST)Anatomical Region LateralityModalityOtherSpecimen (Source)Anatomical Location / Laterality Collection Method / VolumeCollection TimeReceived Time03/15/2024 4:55 PM EST Narrative 03/15/2024 4:55 PM EST [facility] ?[address] ? [place] [address] ? Mammography Report ? Signed ? Patient: HALINA CHIN A ?MR#: [id number] ?? : 1975 ?Acct:[id number] ?? Age/Sex: 48 / F ?ADM Date: 03/15/24 ?? Loc: MAMMO ? Attending Dr: Jerry Montalvo D.O. ? Ordering Physician: Jerry Montalvo D.O. ?Results: ? Date of Service: 03/15/24 ?Follow Up: ? Procedure(s): MM tomosynthesis screening BI ?? Accession Number(s): [id number] ? cc: Jerry Montalvo D.O.; Physician,Non-Staff M.D. ? Patient Name: ? HALINA CHIN ? MR#: [id number] ? : 1975 ? Exam Date: 03/15/2024 ?? Ordering Doctor: DR Jerry Montalvo . ? RADIOLOGY REPORT ? PROCEDURE: ? MM TOMOSYNTHESIS SCREENING BI ? COMPARISON: ? MG MAMM DIAGNOSTIC 3D BENITO CAD, 05/03/2021. ??MG MAMM BENITO SCRN W ?? CAD DIG, 08/04/2018. ??MG MAMM BENITO SCRN W CAD DIG, 05/14/2017. ? INDICATIONS: ? screening for malignant neoplasm of breast ? Calculator Name ? NCI Breast Cancer Risk Assessment Tool ?? 5 Year Breast Cancer Risk ? 0.60% ?? Lifetime Breast Cancer Risk ? 5.80% ?? Personal Breast Cancer ?No ?? Personal Ovarian Cancer ? No ?? Treatments ? None ?? Family Cancers ? None ? LOCATION: ? [facility] ? BREAST COMPOSITION: ? The breasts are heterogeneously dense,which may ?? obscure small masses. ? FINDINGS: ? DIAGNOSTIC CATEGORY 1--NEGATIVE. ? RIGHT BREAST: ??No significant suspicious finding. ??No significant change has ?? occurred. ? LEFT BREAST: ??No significant suspicious finding. ??No significant change has ?? occurred. ? RECOMMENDATIONS: ? ROUTINE MAMMOGRAM AND CLINICAL EVALUATION IN 12 MONTHS. ? PLEASE NOTE: ??A NORMAL MAMMOGRAM DOES NOT EXCLUDE THE POSSIBILITY OF BREAST ?? CANCER. ??A CLINICALLY SUSPICIOUS PALPABLE LUMP SHOULD BE BIOPSIED. ? Dictated by: Minesh Myers M.D. on 03/15/2024 at 16:52 ? Approved by: Minesh Myers M.D. on 03/15/2024 at 16:54 ? Dictated By: ?Minesh yMers M.D. ? Signed By: ?03/15/241654 ? DD/ 54 ? TD/TT: ? Dj Instructor: Procedure Note Radiology, Radiologist, MD - 03/15/2024 [place] [address] Mammography Report Signed Patient: HALINA CHIN [employer] [facility] [employer] [facility]#: [id number] : 1975Acct:[id number] Age/Sex: 48 / FADM Date: 03/15/24 Loc: MAMMO Attending Dr: Jerry Montalvo D.O. Ordering Physician: Jerry Montalvo D.O.Results: Date of Service: 03/15/24Follow Up: Procedure(s): MM tomosynthesis screening BI Accession Number(s): [id number] cc: Jerry Montalvo D.O.; Physician,Non-Staff Fly Patient Name: HALINA CHIN MR#: [id number] : 1975 Exam Date: 03/15/2024 Ordering Doctor: DR Jerry Montalvo . RADIOLOGY REPORT PROCEDURE: MM TOMOSYNTHESIS SCREENING BI COMPARISON: MG MAMM DIAGNOSTIC 3D BENITO CAD, 05/03/2021. MG MAMM BILSCRN W CAD DIG, 08/04/2018. MG MAMM BENITO SCRN W CAD DIG, 05/14/2017. INDICATIONS: screening for malignant neoplasm of breast Calculator Name NCI Breast Cancer Risk Assessment Tool 5 Year Breast Cancer Risk 0.60% Lifetime Breast Cancer Risk 5.80% Personal Breast Cancer No Personal Ovarian Cancer No Treatments None Family Cancers None LOCATION: [facility] BREAST COMPOSITION: The breasts are heterogeneously dense,which may obscure small masses. FINDINGS: DIAGNOSTIC CATEGORY 1--NEGATIVE. RIGHT BREAST: No significant suspicious finding. No significant changehas occurred. LEFT BREAST: No significant suspicious finding. No significant changehas occurred. RECOMMENDATIONS: ROUTINE MAMMOGRAM AND CLINICAL EVALUATION IN 12 MONTHS. PLEASE NOTE: A NORMAL MAMMOGRAM DOES NOT EXCLUDE THE POSSIBILITY OFBREAST CANCER. A CLINICALLY SUSPICIOUS PALPABLE LUMP SHOULD BE BIOPSIED. Dictated by: Minesh Myers M.D. on 03/15/2024 at 16:52 Approved by: Minesh Myers M.D. on 03/15/2024 at 16:54 Dictated By: Minesh Myers M.D. Signed By:03/15/241654 DD/ 54 TD/TT: Dj Instructor: Authorizing ProviderResult TypeResult StatusCorey Katia DOCLINISYNC IMAGINGFinal Result * Pap Smear (01/11/2024 12:00 AM EST)Specimen (Source)Anatomical Location / LateralityCollection Method / VolumeCollection TimeReceived TimeSwabCervical swab / Unknown Narrative Authorizing ProviderResult TypeResult StatusAmy Vahe PALAB CYTOLOGY ORDERABLES Final ResultPerforming OrganizationAddressCity/State/ZIP CodePhone Number EXTERNAL LAB from Last 3 Months or Most Recently Relevant to Health Maintenance Insurance Care Teams Team MemberRelationshipSpecialtyStart DateEnd Date Diego [place] MD PCP - GeneralFamily Ekhqheuh23/4/24
--- OUTSIDE RECORDS SUMMARY | 2025-01-17 19:25 | XMS_ITS | Encounter Summary ---
Author Organization [facility] Address [address] [place] [address] Care Team Providers Care Trailer Rental Clerk Name Role Phone Diego Reynolds MD Primary Care Provider Encounter Details DateTypeDepartmentCare Team (Latest Contact Info)Zzbyautarqn67/07/2025linisync Result Encounter [facility] External Department Unsolicited Jerry Montalvo, DO [address] [facility] [place], [place] [id number] Social History Tobacco UseTypesPacks/DayYears UsedDateSmoking Tobacco: Never Assessed CommentsNoSex and Gender InformationValueDate RecordedSex Assigned at BirthNot on fileLegal LkmYlkoct94/15/2023 11:47 PM EDTGender IdentityNot on fileSexual OrientationNot on filedocumented as of this encounter Plan of Treatment DateTypeDewadley regional medical centerCare Team (Latest Contact Info)Nawedhpnqan79/23/2026 4:00 PM ESTProcedure Visit [facility] [place] [facility] [address] [place] [address] Jerry Montalvo, [address] [facility] [place] [address] documented as of this encounter Procedures Procedure NamePriorityDate/TimeAssociated DiagnosisCommentsMM TOMOSYNTHESIS SCREENING BI03/15/2024 4:55 PM EST documented in this encounter Results * MM TOMOSYNTHESIS SCREENING BI (03/15/2024 4:55 PM EST)Anatomical Region LateralityModalityOtherSpecimen (Source)Anatomical Location / Laterality Collection Method / VolumeCollection TimeReceived Time03/15/2024 4:55 PM EST Narrative 03/15/2024 4:55 PM EST [facility] ?[address] ? [place], [facility] ? Mammography Report ? Signed ? Patient: IVONNECAMILAHALINA ?MR#: [id number] ?? : 1975 ?Acct:[id number] ?? Age/Sex: 48 / F ?ADM Date: 03/15/24 ?? Loc: MAMMO ? Attending Dr: Jerry Montalvo D.O. ? Ordering Physician: Jerry Montalvo D.O. ?Results: ? Date of Service: 03/15/24 ?Follow Up: ? Procedure(s): MM tomosynthesis screening BI ?? Accession Number(s): [id number] ? cc: Jerry Montalvo D.O.; Physician,Non-Staff M.D. ? Patient Name: ? HALINA CHIN ? MR#: [id number] ? : 1975 ? Exam Date: 03/15/2024 [...] Cancers ? None ? LOCATION: ? [facility] ? BREAST COMPOSITION: ? The breasts are [...] 03/15/2024 at 16:54 ? Dictated By: ?Minesh Myers M.D. ? Signed By: ?03/15/241654 ? DD/ 54 ? TD/TT: ? Sales Representative Publications: Procedure Note Radiology, Radiologist, MD - 03/15/2024 [place] [address] Mammography Report Signed Patient: HALINA CHIN AM[facility]#: [id number] : 1975Acct:[id number] Age/Sex: 48 / FADM Date: 03/15/24 Loc: MAMMO Attending Dr: Jerry Montalvo D.O. Ordering Physician: Jerry Montalvo D.O.Results: Date of Service: 03/15/24Follow Up: Procedure(s): MM tomosynthesis screening BI Accession Number(s): [id number] cc: Jerry Montalvo D.O.; Physician,Non-Staff Fly Patient Name: HALINA CHIN MR#: [id number] : 1975 Exam Date: 03/15/2024 Ordering Doctor: [...] Treatments None Family Cancers None LOCATION: [facility] BREAST COMPOSITION: The breasts are heterogeneously dense,which [...] 16:54 Dictated By: Minesh Myers M.D. Signed By:03/15/245 DD/ 54 TD/TT: Sales Representative Publications: Authorizing ProviderResult TypeResult StatusCorey Katia DOCLINISYNC IMAGINGFinal Result documented in this encounter Visit Diagnoses Not on filedocumented in this encounter Care Teams Team MemberRelationshipSpecialtyStart DateEnd Date Diego [place] MD PCP - GeneralFamily Tutcepap76/4/24documented as of this encounter
--- OUTSIDE RECORDS SUMMARY | 2025-01-17 19:25 | XMS_ITS | Encounter Summary ---
Author Organization [facility] Address [address] [place] [address] Care Team Providers Care Credit Risk Modeler Name Role Phone Diego [place] MD Primary Care Provider [phone] Encounter Details DateTypeDepartmentCare Team (Latest Contact Info)Flsxnepjqvw58/04/2025Travel Social History Tobacco UseTypesPacks/DayYears UsedDateSmoking Tobacco: Never Assessed CommentsNoSex and Gender InformationValueDate RecordedSex Assigned at BirthNot on fileLegal VqqKtqubf46/15/2023 11:47 PM EDTGender IdentityNot on fileSexual OrientationNot on filedocumented as of this encounter Plan of Treatment DateTypeDepartmentCare Team (Latest Contact Info)Lpwdinheqsv37/23/2026 4:00 PM ESTProcedure Visit [facility] [address] [place] [address] Jerry Montalvo DO [address], [place] [address] documented as of this encounter Visit Diagnoses Not on filedocumented in this encounter Care Teams Team MemberRelationshipSpecialtyStart DateEnd Date Diego Reynolds MD PCP - GeneralFamily Xonviupj83/4/24documented as of this encounter
[2025-01-20 10:10] LABS: Age Gdln ACOG Testing Note (.); IGP, Aptima HPV, rfx 16/18,45 Note (.)
== END 2025-01-17 19:21 | disposition home or self-care (01) ==
LOC: LAB 19:20
PROVIDERS: Visit Provider Obstetrics & Gynecology
DX: Z01.419 Encounter for gynecological examination (general) (routine) without abnormal findings (principal)
CPT/HCPCS: 87624; 88175